=== PATIENT | male | born 1955 | race Caucasian/White ===

== ENCOUNTER 2020-09-01 15:35 | Outpatient (CLI) | payer MEDICARE, OTHER ==
[2020-09-01 18:02] LABS: BASOPHILS % (AUTO) 0.6 %; EOSINOPHILS # (AUTO) 0.1 10^3/uL (0.0-0.7); HGB - HEMOGLOBIN 14.3 g/dL (14.0-18.0); LYMPHOCYTES # (AUTO) 1.9 10^3/uL (1.5-3.5); MEAN CORPUSCULAR HEMOGLOBIN 28.7 pg (27.0-31.0); MEAN CORPUSCULAR HGB CONC 32.6 g/dL (32.0-36.0); MEAN CORPUSCULAR VOLUME 88.2 fL (80.0-94.0); MEAN PLATELET VOLUME 10.7 fL (7.4-11.4); MONOCYTES # (AUTO) 0.6 10^3/uL (0.0-1.0); MONOCYTES % (AUTO) 9.5 %; NEUTROPHILS # (AUTO) 3.7 10^3/uL (1.5-6.6); NEUTROPHILS % (AUTO) 57.6 %; PLT - PLATELET COUNT 236 10^3/uL (130-450); RED BLOOD COUNT 4.98 10^6/uL (4.70-6.10); RED CELL DISTRIBUTION WIDTH 12.7 % (12.0-15.0); WHITE BLOOD COUNT 6.4 x10^3/uL (4.8-10.8)
[2020-09-01 18:23] LABS: ALBUMIN 4.3 g/dL (3.2-5.5); ALBUMIN/GLOBULIN RATIO 1.1 (1.0-2.2); ALKALINE PHOSPHATASE 110 IU/L (42-121); ALT ALANINE AMINOTRANSFERASE < 10 IU/L (10-60); AST ASPARTATE AMINOTRANSFERASE 12 IU/L (10-42); BUN - BLOOD UREA NITROGEN 11 mg/dL (6-20); CALCIUM 9.5 mg/dL (8.5-10.3); CARBON DIOXIDE - CO2 26 mmol/L (21-32); CHLORIDE 95 mmol/L (101-111); CHOLESTEROL 283 mg/dL; CREATININE 0.7 mg/dL (0.6-1.2); GLUCOSE 270 mg/dL (70-100); HDL CHOLESTEROL 47 mg/dL; LDL CHOLESTEROL,CALCULATED 213 mg/dL; LDL/HDL RATIO 4.5 (<3.6); SODIUM 134 mmol/L (135-145); TOTAL PROTEIN 8.3 g/dL (6.7-8.2); VLDL CHOLESTEROL 23 mg/dL
[2020-09-01 20:11] LABS: HEMOGLOBIN A1c% 12.6 % (4.27-6.07)
[2020-09-02 12:36] LABS: CREATININE,URINE 26.1 mg/dL; MICROALBUM/CREATININE RATIO,UR 57.5 ug/mg (<30.0); MICROALBUMIN,URINE 1.5 mg/dL (0-300.0)
== END 2020-09-01 23:59 | disposition home or self-care (01) ==
LOC: LAB.WCP 15:35
PROVIDERS: ATTEND Nurse Practitioner
DX: N52.9 Male erectile dysfunction, unspecified (principal); E11.9 Type 2 diabetes mellitus without complications; Z82.49 Family history of ischemic heart disease and other diseases of the circulatory system; Z86.13 Personal history of malaria
CPT/HCPCS: 36415; 80050; 80061; 82043; 82570; 83036; 83721; 84153

== ENCOUNTER → 2020-09-02 | Outpatient (CLI) | payer MEDICARE, OTHER ==
[2020-11-02 18:10] LABS: CREATININE,URINE 26.1 mg/dL; MICROALBUM/CREATININE RATIO,UR 57.5 ug/mg (<30.0); MICROALBUMIN,URINE 1.5 mg/dL (0-300.0)
== END ==
LOC: LAB.R 07:00
PROVIDERS: ATTEND Nurse Practitioner
DX: N52.9 Male erectile dysfunction, unspecified (principal); E11.9 Type 2 diabetes mellitus without complications; Z82.49 Family history of ischemic heart disease and other diseases of the circulatory system; Z86.13 Personal history of malaria
CPT/HCPCS: 82043; 82570

== ENCOUNTER 2021-03-24 08:00 | Outpatient (CLI) | payer MEDICARE, OTHER ==
[2021-03-24 12:29] LABS: BUN - BLOOD UREA NITROGEN 14 mg/dL (6-20); CALCIUM 9.4 mg/dL (8.5-10.3); CARBON DIOXIDE - CO2 28 mmol/L (21-32); CHLORIDE 104 mmol/L (101-111); CHOL/HDL RATIO 2.6 (<5.0); CHOLESTEROL 127 mg/dL; CREATININE 0.7 mg/dL (0.6-1.2); GFR - MDRD 113 (>89); GLUCOSE 135 mg/dL (70-100); HDL CHOLESTEROL 48 mg/dL; POTASSIUM 4.5 mmol/L (3.5-5.0); SODIUM 141 mmol/L (135-145); TRIGLYCERIDES 26 mg/dL
[2021-03-24 12:38] LABS: ESTIMATED AVERAGE GLUCOSE 163 mg/dL (70-100); HEMOGLOBIN A1c% 7.3 % (4.27-6.07)
== END 2021-03-24 23:59 | disposition home or self-care (01) ==
LOC: LAB.WCP 08:00
PROVIDERS: ATTEND Family Medicine
DX: E11.65 Type 2 diabetes mellitus with hyperglycemia (principal); E78.5 Hyperlipidemia, unspecified
CPT/HCPCS: 36415; 80048; 80061; 82043; 82570; 83036; 83721

== ENCOUNTER 2021-03-28 08:00 | Outpatient (CLI) | payer MEDICARE, OTHER ==
[2021-03-28 12:48] LABS: CREATININE,URINE 68.8 mg/dL; MICROALBUM/CREATININE RATIO,UR 11.6 ug/mg (<30.0); MICROALBUMIN,URINE 0.8 mg/dL (0-300.0)
== END 2021-03-28 23:59 | disposition home or self-care (01) ==
LOC: LAB.WCP 08:00
PROVIDERS: ATTEND Family Medicine
DX: E11.65 Type 2 diabetes mellitus with hyperglycemia (principal); E78.5 Hyperlipidemia, unspecified
CPT/HCPCS: 82043; 82570

== ENCOUNTER 2021-07-08 15:48 | Outpatient (CLI) | payer MEDICARE, OTHER ==
[2021-07-08 21:15] LABS: CALCIUM 8.9 mg/dL (8.5-10.3); CREATININE 0.9 mg/dL (0.6-1.2); POTASSIUM 4.2 mmol/L (3.5-5.0)
[2021-07-08 22:04] LABS: ESTIMATED AVERAGE GLUCOSE 180 mg/dL (70-100); HEMOGLOBIN A1c% 7.9 % (4.27-6.07)
== END 2021-07-08 15:49 | disposition home or self-care (01) ==
LOC: LAB.N 15:48
PROVIDERS: ATTEND Family Medicine
DX: Z01.84 Encounter for antibody response examination (principal); E11.65 Type 2 diabetes mellitus with hyperglycemia
CPT/HCPCS: 36415; 80048; 83036; 86769

== ENCOUNTER 2021-08-05 06:16 | Day surgery (SDC) | payer MEDICARE, OTHER ==
[2021-08-05] MEDS ORDERED: LACTATED RINGERS 1,000 ML IV ONE ×2 (06:46→08:50)
--- NOTE | 2021-08-05 07:16 | HISTORY & PHYSICAL EXAMINATION ---
Chief Complaint - Chief Complaint Chief Complaint: positive cologuard History of Present Illness - History Obtained From Records Reviewed: yes History obtained from: pt Exam Limitations: none - History of Present Illness HPI Comment/Other: Positive cologuard. No gi symptoms or anemia. History - Past Medical History Cardiovascular: reports: High cholesterol Respiratory: reports: None Endocrine/Autoimmune: reports: Type 2 diabetes GI: reports: None : reports: None HEENT: reports: None Psych: reports: None Musculoskeletal: reports: None Derm: reports: None MRSA Hx?: No Meds/Allgy - Home Medications Home Medications: Ambulatory Orders Medication Instructions Recorded Confirmed Lisinopril 5 mg ORAL DAILY 05/10/14 08/05/21 Metformin HCl 500 mg ORAL BID 05/10/14 08/05/21 Atorvastatin [Lipitor] 1 tab PO DAILY 08/05/21 08/05/21 Insulin Glargine [Lantus Solostar] 32 units IM DAILY 08/05/21 08/05/21 - Allergies Allergies/Adverse Reactions: Allergies Allergy/AdvReac Type Severity Reaction Status Date / Time No Known Drug Allergies Allergy Verified 05/10/14 10:58 Review of Systems - Other Findings Other Findings: 10 pt ros as above otherwise unremarkable Exam - Vital Signs Reviewed Vital Signs: Yes Vital Signs: Vital Signs x48h Temp Pulse Resp BP Pulse Ox 08/05/21 06:35 36.2 C L 96 18 110/81 H 99 - Physical Exam General Appearance: positive: No acute distress, Alert Eyes Bilateral: positive: PERRL, EOMI Neck: positive: No JVD Respiratory: positive: No respiratory distress, Breath sounds nml Cardiovascular: positive: Regular rate & rhythm Abdomen: positive: Non-tender, No distention Neurologic/Psychiatric: positive: Oriented x3 Conclusion/Plan - Problem List (1) Colon cancer screening Conclusion/Plan: positive cologuard. plan colonoscopy. parq held and consent obtained
[2021-08-05] MEDS ORDERED: fentaNYL 250 MCG/5 ML VIAL ONE (07:36)
[2021-08-05] MEDS ORDERED: MIDAZOLAM 2 MG/2 ML VIAL ONE (07:36)
[2021-08-05 09:35] VITALS: BP 109/69
== END 2021-08-05 06:17 | disposition home or self-care (01) ==
LOC: SDS 06:16
PROVIDERS: ATTEND Surgery
PROC: 0DBL8ZZ Excision of Transverse Colon, Via Natural or Artificial Opening Endoscopic (ICD-10-PCS; 2021-08-05)
PROC: 0DBN8ZZ Excision of Sigmoid Colon, Via Natural or Artificial Opening Endoscopic (ICD-10-PCS; 2021-08-05)
PROC: 0DBP8ZZ Excision of Rectum, Via Natural or Artificial Opening Endoscopic (ICD-10-PCS; 2021-08-05)
PROC: 0DBM8ZZ Excision of Descending Colon, Via Natural or Artificial Opening Endoscopic (ICD-10-PCS; 2021-08-05)
PROC: 0DBP8ZZ Excision of Rectum, Via Natural or Artificial Opening Endoscopic (ICD-10-PCS; 2021-08-05)
PROC: 0DBK8ZZ Excision of Ascending Colon, Via Natural or Artificial Opening Endoscopic (ICD-10-PCS; principal; 2021-08-05 07:30)
DX: D12.4 Benign neoplasm of descending colon (principal); D12.3 Benign neoplasm of transverse colon; D12.8 Benign neoplasm of rectum; D12.7 Benign neoplasm of rectosigmoid junction; K63.9 Disease of intestine, unspecified; K57.30 Diverticulosis of large intestine without perforation or abscess without bleeding; E11.9 Type 2 diabetes mellitus without complications; E78.00 Pure hypercholesterolemia, unspecified; Z79.4 Long term (current) use of insulin; Z79.899 Other long term (current) drug therapy
CPT/HCPCS: 45380; 45385; J3010; J7120

== ENCOUNTER 2021-10-19 08:00 | Outpatient (CLI) | payer MEDICARE, OTHER ==
[2021-10-19 13:10] LABS: BASOPHILS % (AUTO) 0.7 %; EOSINOPHILS # (AUTO) 0.2 10^3/uL (0.0-0.7); EOSINOPHILS % (AUTO) 2.8 %; HCT - HEMATOCRIT 41.2 % (42.0-52.0); HGB - HEMOGLOBIN 13.5 g/dL (14.0-18.0); LYMPHOCYTES # (AUTO) 1.6 10^3/uL (1.5-3.5); LYMPHOCYTES % (AUTO) 27.5 %; MEAN CORPUSCULAR HEMOGLOBIN 29.2 pg (27.0-31.0); MEAN CORPUSCULAR HGB CONC 32.8 g/dL (32.0-36.0); MEAN CORPUSCULAR VOLUME 89.2 fL (80.0-94.0); MEAN PLATELET VOLUME 10.7 fL (7.4-11.4); MONOCYTES # (AUTO) 0.7 10^3/uL (0.0-1.0); MONOCYTES % (AUTO) 12.9 %; NEUTROPHILS # (AUTO) 3.2 10^3/uL (1.5-6.6); NEUTROPHILS % (AUTO) 55.9 %; PLT - PLATELET COUNT 221 10^3/uL (130-450); RED BLOOD COUNT 4.62 10^6/uL (4.70-6.10); RED CELL DISTRIBUTION WIDTH 13.4 % (12.0-15.0); WHITE BLOOD COUNT 5.7 x10^3/uL (4.8-10.8)
[2021-10-19 13:27] LABS: ESTIMATED AVERAGE GLUCOSE 157 mg/dL (70-100); HEMOGLOBIN A1c% 7.1 % (4.27-6.07)
[2021-10-19 13:54] LABS: ALBUMIN 4.2 g/dL (3.2-5.5); ALBUMIN/GLOBULIN RATIO 1.2 (1.0-2.2); ALKALINE PHOSPHATASE 70 IU/L (42-121); ALT ALANINE AMINOTRANSFERASE 11 IU/L (10-60); AST ASPARTATE AMINOTRANSFERASE 18 IU/L (10-42); BILIRUBIN,TOTAL 0.6 mg/dL (0.2-1.0); BUN - BLOOD UREA NITROGEN 16 mg/dL (6-20); CALCIUM 9.2 mg/dL (8.5-10.3); CARBON DIOXIDE - CO2 26 mmol/L (21-32); CHLORIDE 102 mmol/L (101-111); CHOL/HDL RATIO 2.8 (<5.0); CHOLESTEROL 135 mg/dL; CREATININE 0.6 mg/dL (0.6-1.2); GFR - MDRD 135 (>89); GLUCOSE 160 mg/dL (70-100); HDL CHOLESTEROL 48 mg/dL; POTASSIUM 4.4 mmol/L (3.5-5.0); SODIUM 136 mmol/L (135-145); TOTAL PROTEIN 7.6 g/dL (6.7-8.2); TRIGLYCERIDES 29 mg/dL
[2021-10-19 14:35] LABS: THYROID STIMULATING HORMONE 0.99 uIU/mL (0.34-5.60)
== END 2021-10-19 23:59 | disposition home or self-care (01) ==
LOC: LAB.WCP 08:00
PROVIDERS: ATTEND Family Medicine
DX: E11.65 Type 2 diabetes mellitus with hyperglycemia (principal); E78.5 Hyperlipidemia, unspecified; G47.33 Obstructive sleep apnea (adult) (pediatric); Z12.5 Encounter for screening for malignant neoplasm of prostate
CPT/HCPCS: 36415; 80053; 80061; 83036; 84443; 85025; G0103; 82043; 82570; 83721; 84153

== ENCOUNTER 2022-01-18 09:47 | Emergency (ER) | payer MEDICARE, OTHER ==
--- NOTE | 2022-01-18 10:36 | ED Physician Documentation ---
PD HPI SKIN - Stated complaint Stated Complaint: LT LEG PX, POTENTIAL SPIDER BITE - Chief complaint Chief Complaint: Ext Problem - History obtained from History obtained from: Patient - History of Present Illness Timing - onset: How many days ago (2-3) Timing - duration: Days (2-3) Timing - details: Gradual onset (noted small sore on mccollum with some redness. This has spread to around the knee anteriorly. Tender for kneeling and knee extension.), Still present Location: LLE Quality / character: Painful, Discolored (red with warmth), Vesicular (small cluster of red bumps at site of initial lesion. he thinks it might have been spider bite. 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.) Similar symptoms before: Has not had sx before (denies history of bursitis nor gout.) Recently seen: Not recently seen Review of Systems Constitutional: denies: Fever, Chills, Myalgias GI: denies: Nausea, Vomiting Neurologic: denies: Focal weakness, Numbness PD PAST MEDICAL HISTORY - Past Medical History Cardiovascular: High cholesterol Respiratory: None Endocrine/Autoimmune: Type 2 diabetes GI: None : None HEENT: None Psych: None Musculoskeletal: None Derm: None - Past Surgical History Past Surgical History: No - Present Medications Home Medications: Ambulatory Orders Medication Instructions Recorded Confirmed Lisinopril 5 mg ORAL DAILY 05/10/14 08/05/21 Metformin HCl 500 mg ORAL BID 05/10/14 08/05/21 Atorvastatin [Lipitor] 1 tab PO DAILY 08/05/21 08/05/21 Insulin Glargine [Lantus Solostar] 32 units IM DAILY 08/05/21 08/05/21 HYDROcod/ACETAM 5/325 [[place] 5/325] 1 ea PO Q6H PRN #12 tablet 01/18/22 Ibuprofen [Motrin] 600 mg PO TID PRN #25 tab 01/18/22 cephALEXin [Keflex] 500 mg PO QID 5 Days #20 cap 01/18/22 - Allergies Allergies/Adverse Reactions: Allergies Allergy/AdvReac Type Severity Reaction Status Date / Time No Known Drug Allergies Allergy Verified 05/10/14 10:58 - Social History Does the pt smoke?: Yes Smoking Status: Current every day smoker Does the pt drink ETOH?: Yes Does the pt have substance abuse?: No - Immunizations Immunizations are current?: No Immunizations: TDAP >10years/unknown PD ED PE NORMAL - Vitals Vital signs reviewed: Yes - General General: Alert and oriented X 3, Well developed/nourished, Other (seems uncomfortable with left knee movement, extension. ) - Derm Derm: Normal color, Warm and dry - Extremities Extremities: Other (left anterior lower knee and proximal anterior tibial area with redness, warmth, tender. Is tender in area of lower bursa but no skin lesions there and no notable effusion. proximal tibial area with superficial 2 cm cluster of small vesicles without drainage. consider impetigo like infection.) - Neuro Neuro: No motor deficit, No sensory deficit Results - Vitals Vitals: Vital Signs - 24 hr 01/18/22 01/18/22 09:58 12:00 Temperature 36.8 C 36.6 C Heart Rate 96 97 Respiratory 16 16 Rate Blood Pressure 118/78 112/54 L O2 Saturation 97 100 Oxygen O2 Source Room air PD MEDICAL DECISION MAKING - ED course Complexity details: considered differential (redness in prepatellar bursa area without effusion. I do not feel there is enough for tapping diagnostically. there is skin sore proximal tibial area with red, so could be cellulitic. also consider gout/bursitis. ), d/w patient Departure - Departure Disposition: 01 Home, Self Care Clinical Impression: Cellulitis of left lower leg Condition: Stable Record reviewed to determine appropriate education?: Yes Instructions: ED Infec Skin Cellulitis Follow-Up: Artis Hernandez MD [Primary Care Provider] - Prescriptions: cephALEXin [Keflex] 500 mg PO QID 5 Days #20 cap Ibuprofen [Motrin] 600 mg PO TID PRN #25 tab PRN Reason: Pain HYDROcod/ACETAM 5/325 [[place] 5/325] 1 ea PO Q6H PRN #12 tablet PRN Reason: Pain Comments: Considerations for this would be an infection from either a skin wound or a bug bite that is now spreading (cellulitis). It could be just an inflammatory reaction around the front of the knee called prepatellar bursitis or inflammatory called gout. We can treat at these conditions with anti-inflammatories and pain medicine. I would also add cephalexin antibiotic as directed. Ibuprofen 3 times a day with food. To that add Tylenol every 4-6 hours if needed for pain or hydrocodone if needed for worse pain. I would anticipate improvement over the next 2 to 3 days and resolved by 3 to 5 days. Return if worsening or not improved in that timeframe. I transmitted your prescriptions to [facility] pharmacy. I am prescribing a short course of narcotic pain medication for you. These are potentially dangerous and addictive medications that should be used carefully. These medications may constipate you. Take an [id number]-[id number] stool softener such as docusate twice daily with plenty of water while taking these medications. If you go 24 hours without a bowel movement, take [id number] MiraLAX, per package instructions. Do not drink or drive while taking these medications. If you received narcotic or sedating medications while in the emergency departme nt do not drive for 24 hours. Store this medication in a safe, secure place and out of reach of children. It is a violation of federal law to give or sell this medication to another person or to use in a manner other than prescribed. The ED will not refill narcotic prescriptions, including prescriptions lost or stolen. You can dispose of unwanted medications at the [facility] or at several pharmacies such as [facility] Discharge Date/Time: 01/18/22 12:00
[2022-01-18] MEDS ORDERED: IBUPROFEN 600 MG TABLET PO STA (11:06)
[2022-01-18] MEDS ORDERED: cephALEXin 250 MG CAPSULE PO STA (11:06)
[2022-01-18] MEDS ORDERED: ACETAMINOPHEN 325 MG TABLET PO STA (11:06)
[2022-01-18 12:24] VITALS: BP 112/54
== END 2022-01-18 12:00 | disposition home or self-care (01) ==
LOC: ED 09:47
DX: L03.116 Cellulitis of left lower limb (principal); E11.9 Type 2 diabetes mellitus without complications; Z79.4 Long term (current) use of insulin
CPT/HCPCS: 99282; 99283; A9270

== ENCOUNTER 2022-01-22 13:19 | Inpatient (IN) | payer MEDICARE, OTHER ==
--- NOTE | 2022-01-22 17:25 | ED Physician Documentation ---
History of Present Illness - Stated complaint Stated Complaint: LT KNEE PX - Chief complaint Chief Complaint: Wound - History obtained from History obtained from: Patient - History of Present Illness Pain level max: 8 Pain level now: 8 - Additonal information Additional information: Patient is a 66-year-old male who presents to the emergency department with a left lower leg swelling and pain. He states that it started on the midshaft left tibia and spread to the knee. Has redness, swelling. No drainage. Worse with movement, better with rest. Was seen here recently, started on antibiotics as well as pain medication. He states neither are helping. Now increasing pain with walking as well. 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 No fevers or chills. No breaks in the skin that he is aware of. No lacerations. Has never had similar symptoms previously. Review of Systems Ten Systems: 10 systems reviewed and negative Constitutional: denies: Fever, Chills GI: denies: Vomiting, Diarrhea Skin: denies: Rash Musculoskeletal: denies: Neck pain, Back pain Neurologic: denies: Headache PD PAST MEDICAL HISTORY - Past Medical History Cardiovascular: High cholesterol Respiratory: None Endocrine/Autoimmune: Type 2 diabetes GI: None : None HEENT: None Psych: None Musculoskeletal: None Derm: None - Past Surgical History Past Surgical History: No - Present Medications Home Medications: Ambulatory Orders Medication Instructions Recorded Confirmed Lisinopril 5 mg ORAL DAILY 05/10/14 08/05/21 Metformin HCl 500 mg ORAL BID 05/10/14 08/05/21 Atorvastatin [Lipitor] 1 tab PO DAILY 08/05/21 08/05/21 Insulin Glargine [Lantus Solostar] 32 units IM DAILY 08/05/21 08/05/21 HYDROcod/ACETAM 5/325 [[place] 5/325] 1 ea PO Q6H PRN #12 tablet 01/18/22 Ibuprofen [Motrin] 600 mg PO TID PRN #25 tab 01/18/22 cephALEXin [Keflex] 500 mg PO QID 5 Days #20 cap 01/18/22 - Allergies Allergies/Adverse Reactions: Allergies Allergy/AdvReac Type Severity Reaction Status Date / Time No Known Drug Allergies Allergy Verified 01/22/22 13:25 - Social History Does the pt smoke?: Yes Smoking Status: Current every day smoker Does the pt drink ETOH?: Yes Does the pt have substance abuse?: No - Immunizations Immunizations are current?: No Immunizations: TDAP >10years/unknown PD ED PE NORMAL - Vitals Vital signs reviewed: Yes - General General: Alert and oriented X 3, No acute distress - HEENT HEENT: Moist mucous membranes - Neck Neck: Supple, no meningeal sign - Cardiac Cardiac: RRR, Strong equal pulses - Respiratory Respiratory: No respiratory distress, Clear bilaterally - Abdomen Abdomen: Soft, Non tender, Non distended - Derm Derm: Warm and dry - Extremities Extremities: Other (There is erythema from the mid tibia to above the left knee. Diffuse swelling. No warmth. Some mild posterior calf tenderness. No visible breaks in the skin. Does not appear to have a joint effusion. Neurovascularly intact.) - Neuro Neuro: Alert and oriented X 3 - Psych Psych: Normal mood, Normal affect Results - Vitals Vitals: Vital Signs - 24 hr 01/22/22 01/22/22 01/22/22 13:25 16:54 20:09 Temperature 36.5 C 36.9 C Heart Rate 96 79 64 Respiratory 16 20 18 Rate Blood Pressure 118/79 115/68 122/64 O2 Saturation 100 99 99 Oxygen O2 Source Room air - Labs Labs: Laboratory Tests 01/22/22 01/22/22 01/22/22 17:32 17:32 17:32 WBC 14.1 H RBC 4.38 L Hgb 13.0 L Hct 38.6 L MCV 88.1 MCH 29.7 MCHC 33.7 RDW 12.7 Plt Count 279 MPV 10.0 Neut # (Auto) 10.7 H Lymph # (Auto) 1.6 [place] # (Auto) 1.5 H Eos # (Auto) 0.1 Baso # (Auto) 0.1 Absolute Nucleated RBC 0.00 Nucleated RBC % 0.0 ESR 52 H Sodium 134 L Potassium 4.2 Chloride 98 L Carbon Dioxide 25 Anion Gap 11.0 BUN 15 Creatinine 0.9 Estimated GFR (MDRD) 84 L Glucose 124 H Lactic Acid Calcium 8.7 Total Bilirubin 0.7 AST 53 H ALT 66 H Alkaline Phosphatase 99 C-Reactive Protein 5.3 H Total Protein 7.8 Albumin 3.4 Globulin 4.4 H Albumin/Globulin Ratio 0.8 L Nasal Adenovirus (PCR) Nasal B. parapertussis DNA (PCR) Nasal Coronavir 229E PCR Nasal Coronavir HKU1 PCR Nasal Coronavir NL63 PCR Nasal Coronavir OC43 PCR Nasal Enterovir/Rhinovir PCR Nasal Influenza B PCR Nasal Influenza A PCR Nasal Parainfluen 1 PCR Nasal Parainfluen 2 PCR Nasal Parainfluen 3 PCR Nasal Parainfluen 4 PCR Nasal RSV (PCR) Nasal B.pertussis DNA PCR Nasal C.pneumoniae (PCR) [place] Human Metapneumo PCR Nasal M.pneumoniae (PCR) Nasal SARS-CoV-2 (PCR) 01/22/22 01/22/22 18:58 19:17 WBC RBC Hgb Hct MCV MCH MCHC RDW Plt Count MPV Neut # (Auto) Lymph # (Auto) [place] # (Auto) Eos # (Auto) Baso # (Auto) Absolute Nucleated RBC Nucleated RBC % ESR Sodium Potassium Chloride Carbon Dioxide Anion Gap BUN Creatinine Estimated GFR (MDRD) Glucose Lactic Acid 1.1 Calcium Total Bilirubin AST ALT Alkaline Phosphatase C-Reactive Protein Total Protein Albumin Globulin Albumin/Globulin Ratio Nasal Adenovirus (PCR) NOT DETECTED Nasal B. parapertussis DNA (PCR) NOT DETECTED Nasal Coronavir 229E PCR NOT DETECTED Nasal Coronavir HKU1 PCR NOT DETECTED Nasal Coronavir NL63 PCR NOT DETECTED Nasal Coronavir OC43 PCR NOT DETECTED Nasal Enterovir/Rhinovir PCR NOT DETECTED Nasal Influenza B PCR NOT DETECTED Nasal Influenza A PCR NOT DETECTED Nasal Parainfluen 1 PCR NOT DETECTED Nasal Parainfluen 2 PCR NOT DETECTED Nasal Parainfluen 3 PCR NOT DETECTED Nasal Parainfluen 4 PCR NOT DETECTED Nasal RSV (PCR) NOT DETECTED Nasal B.pertussis DNA PCR NOT DETECTED Nasal C.pneumoniae (PCR) NOT DETECTED [place] Human Metapneumo PCR NOT DETECTED Nasal M.pneumoniae (PCR) NOT DETECTED Nasal SARS-CoV-2 (PCR) NOT DETECTED - Rads (name of study) Left knee x-ray Radiology: Final report received, EMP read contemporaneously, See rad report Left tib-fib x-ray Radiology: Final report received, EMP read contemporaneously, See rad report Left lower extremity duplex ultrasound Radiology: Final report received, EMP read contemporaneously, See rad report PD MEDICAL DECISION MAKING - ED course Complexity details: reviewed results, re-evaluated patient, considered differential (No evidence of septic joint, retained foreign body, DVT, etc), d/w patient, d/w crop consultant ED course: 66-year-old male with what appears to be a worsening left lower extremity cellulitis. No evidence of foreign body on x-ray. No significant joint effusion. No DVT. Does have an elevated white blood cell count as well as inflammatory markers. He had been on oral antibiotics and has failed these, we will place in observation for IV antibiotics and ensure he continues to improve as expected. Discussed the case with Dr. Chacon, hospitalist who accepts This document was made in part using voice recognition software. While efforts are made to proofread this document, sound alike and grammatical errors may occur. Departure - Departure Disposition: ED Place in Observation Clinical Impression: Cellulitis of left lower leg Condition: Stable Discharge Date/Time: 01/22/22 20:55
[2022-01-22 17:38] LABS: BASOPHILS # (AUTO) 0.1 10^3/uL (0.0-0.1); BASOPHILS % (AUTO) 0.4 %; EOSINOPHILS # (AUTO) 0.1 10^3/uL (0.0-0.7); EOSINOPHILS % (AUTO) 0.7 %; HCT - HEMATOCRIT 38.6 % (42.0-52.0); LYMPHOCYTES # (AUTO) 1.6 10^3/uL (1.5-3.5); LYMPHOCYTES % (AUTO) 11.6 %; MEAN CORPUSCULAR HEMOGLOBIN 29.7 pg (27.0-31.0); MEAN CORPUSCULAR HGB CONC 33.7 g/dL (32.0-36.0); MEAN CORPUSCULAR VOLUME 88.1 fL (80.0-94.0); MONOCYTES # (AUTO) 1.5 10^3/uL (0.0-1.0); MONOCYTES % (AUTO) 10.6 %; NEUTROPHILS # (AUTO) 10.7 10^3/uL (1.5-6.6); NEUTROPHILS % (AUTO) 76.2 %; PLT - PLATELET COUNT 279 10^3/uL (130-450); RED BLOOD COUNT 4.38 10^6/uL (4.70-6.10); RED CELL DISTRIBUTION WIDTH 12.7 % (12.0-15.0); WHITE BLOOD COUNT 14.1 x10^3/uL (4.8-10.8)
[2022-01-22 17:54] LABS: ALBUMIN 3.4 g/dL (3.2-5.5); ALBUMIN/GLOBULIN RATIO 0.8 (1.0-2.2); BILIRUBIN,TOTAL 0.7 mg/dL (0.2-1.0); CALCIUM 8.7 mg/dL (8.5-10.3); CREATININE 0.9 mg/dL (0.6-1.2); CRP - C-REACTIVE PROTEIN 5.3 mg/dL (0-1.0); POTASSIUM 4.2 mmol/L (3.5-5.0); TOTAL PROTEIN 7.8 g/dL (6.7-8.2)
--- NOTE | 2022-01-22 18:12 | XRAY Report ---
PROCEDURE: Knee 4 View LT INDICATIONS: LLE swelling, pain TECHNIQUE: 4 views of the left knee(s) were acquired. COMPARISON: Left tibia fibula radiographs today. FINDINGS: Bones: No definite fractures or dislocations. There is tiny calcification at the lateral tibial plat eau. However, on the frontal projection this may be anterior to the bone. No donor site is seen. No suspicious bony lesions. Soft tissues: Probable trace joint effusion. No suspicious soft tissue calcifications. IMPRESSION: No fracture or dislocation. Reviewed by: Ty Hardwick MD on 01/22/2022 5:10 PM [place] Approved by: Ty Hardwick MD on 01/22/2022 5:10 PM KATALINA Station ID: [id number]
--- NOTE | 2022-01-22 18:13 | XRAY Report ---
PROCEDURE: Tib/Fib LT INDICATIONS: LLE swelling, pain TECHNIQUE: 2 views of the tibia and fibula were acquired. COMPARISON: Left knee radiographs. FINDINGS: Bones: No fractures or dislocations. No suspicious bony lesions. Soft tissues: No suspicious soft tissue calcifications or masses. Mild vascular calcifications. IMPRESSION: No fracture. Reviewed by: Ty Hardwick MD on 01/22/2022 5:11 PM KATALINA Approved by: Ty Hardwick MD on 01/22/2022 5:11 PM KATALINA Station ID: [id number]
[2022-01-22] MEDS ORDERED: VANCOMYCIN INJ 1 GM in SODIUM CHLORIDE 0.9% 500 ML IV STA (18:47)
[2022-01-22] MEDS ORDERED: AMPICILLIN/SULBACTAM 3 GM in SODIUM CHLORIDE 0.9% MINIBAG 100 ML IV STA (18:47)
[2022-01-22] MEDS ORDERED: VANCOMYCIN 1 GM VIAL ONE (19:29)
--- NOTE | 2022-01-22 19:52 | Ultrasound Report ---
PROCEDURE: Duplex Ext Veins Left INDICATIONS: LLE swelling, pain TECHNIQUE: Real-time imaging, as well as color and pulse Doppler interrogation, were performed of the lower extr emity deep veins from the inguinal ligament to the popliteal fossa. COMPARISON: None. FINDINGS: The deep veins are normally compressible, and free of intraluminal thrombus. Color and pu lse Doppler demonstrate normal phasic intraluminal flow. There is normal augmentation response to di stal compression maneuver. IMPRESSION: Negative for deep venous thrombosis of the left lower extremity. Reviewed by: Marcos Thomas MD on 01/22/2022 7:51 PM PDT Approved by: Marcos Thomas MD on 01/22/2022 7:51 PM PDT Station ID: [id number]
[2022-01-22 20:15] LABS: CORONAVIRUS 229E-RESP PCR NOT DETECTED; CORONAVIRUS HKU1-RESP PCR NOT DETECTED; CORONAVIRUS NL63-RESP PCR NOT DETECTED; CORONAVIRUS OC43-RESP PCR NOT DETECTED; HUMAN METAPNEUMOVIRUS NOT DETECTED; INFLUENZA A- RESP PCR PANEL NOT DETECTED; INFLUENZA B - RESP PCR PANEL NOT DETECTED; PARAINFLUENZA VIRUS 1 NOT DETECTED; PARAINFLUENZA VIRUS 2 NOT DETECTED; RHINOVIRUS/ENTEROVIRUS NOT DETECTED; SARS-CoV-2 -RESP PCR PANEL NOT DETECTED
[2022-01-22 20:16] LABS: B. PARAPERTUSSIS- RESP PCR PAN NOT DETECTED; B. PERTUSSIS- RESP PCR PANEL NOT DETECTED; C. PNEUMONIAE- RESP PCR PANEL NOT DETECTED; M. PNEUMONIAE- RESP PCR PANEL NOT DETECTED; PARAINFLUENZA VIRUS 3 NOT DETECTED; PARAINFLUENZA VIRUS 4 NOT DETECTED; RSV- RESP PCR PANEL NOT DETECTED
[2022-01-22] MEDS ORDERED: SODIUM CHLORIDE FLUSH 0.9% 10 ML SYRINGE IVP PRN (20:24)
--- NOTE | 2022-01-22 20:35 | HISTORY & PHYSICAL EXAMINATION ---
Chief Complaint - Chief Complaint Chief Complaint: Leg pain, swelling, spreading since 2 days ago in ER History of Present Illness - Admitted From Admitted From:: ED - History Obtained From History obtained from: ED provider and the patient - History of Present Illness HPI Comment/Other: This is a 66-year-old white male with a history of hypertension and diabetes. He developed pain, and a raised red area of his left mccollum, which he thought was from a bug bite, and he came to the ER with this complaint 2 days ago. 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 He was sent home on Keflex. The area has gotten more painful, red and more swollen and the involved area spread and he therefore presented to the ED again today. He was found to have an elevated white blood count of 14, elevated ESR of 52 and has presumed cellulitis. Blood cultures were drawn and then he received IV vancomycin and IV Unasyn in the ED. He underwent ultrasound that was negative for DVT and had an x-ray that showed no foreign body or fractures. He then underwent CT with c ontrast of the LLE, that showed no evidence of necrotizing fasciitis. He is being hospitalized for cellulitis that has failed outpatient therapy. History - Past Medical History Cardiovascular: reports: High cholesterol Respiratory: reports: None Endocrine/Autoimmune: reports: Type 2 diabetes GI: reports: None : reports: None HEENT: reports: None Psych: reports: None Musculoskeletal: reports: None Derm: reports: None MRSA Hx?: No - Family & Social History Living arrangement: At home Social History Notes: He does not smoke cigarettes, uses no marijuana. He smokes a rare cigar, less than 1/week. He drinks very rare alcohol, an occasio nal yareli about 1/week. 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 He is a . - Substance History Use: Uses substance without health or social issues: NONE Meds/Allgy - Home Medications Home Medications: Ambulatory Orders Medication Instructions Recorded Confirmed Lisinopril 5 mg ORAL DAILY 05/10/14 08/05/21 Metformin HCl 500 mg ORAL BID 05/10/14 08/05/21 Atorvastatin [Lipitor] 1 tab PO DAILY 08/05/21 08/05/21 Insulin Glargine [Lantus Solostar] 32 units IM DAILY 08/05/21 08/05/21 HYDROcod/ACETAM 5/325 [[place] 5/325] 1 ea PO Q6H PRN #12 tablet 01/18/22 Ibuprofen [Motrin] 600 mg PO TID PRN #25 tab 01/18/22 cephALEXin [Keflex] 500 mg PO QID 5 Days #20 cap 01/18/22 - Allergies Allergies/Adverse Reactions: Allergies Allergy/AdvReac Type Severity Reaction Status Date / Time No Known Drug Allergies Allergy Verified 01/22/22 13:25 Review of Systems - All Other Systems All Other Systems: reports: Reviewed and negative Exam - Vital Signs Reviewed Vital Signs: Yes Vital Signs: Vital Signs x48h Temp Pulse Resp BP Pulse Ox 01/22/22 20:09 64 18 122/64 99 01/22/22 16:54 36.9 C 79 20 115/68 99 01/22/22 13:25 36.5 C 96 16 118/79 100 - Physical Exam General Appearance: positive: No acute distress, Alert Eyes Bilateral: positive: Normal inspection, EOMI ENT: positive: ENT inspection nml, No signs of dehydration Neck: positive: Nml inspection, No JVD Respiratory: positive: No respiratory distress, Breath sounds nml Cardiovascular: positive: Regular rate & rhythm, No murmur Abdomen: positive: Non-tender, Nml bowel sounds, No distention Skin: positive: Warm, Dry Extremities: positive: No pedal edema, Other (Left mccollum and left knee are mildly swollen, red, tender to touch and warm. There are multiple bright red punctate lesions of the anterior shins (he states these are old, from ladder injuries).) Neurologic/Psychiatric: positive: Oriented x3 (Non-focal) Conclusion/Plan - Problem List (1) Cellulitis of left lower leg Conclusion/Plan: We obtained CT of leg which R/O nec fasc. The source of his cellulitis is likely through skin trauma from his type of job. Await blood cx results. Continue iv empiric antibx as started in ED: Vanco and Unasyn. Follow WBC and ESR daily Give Tylenol and narcotics for pain control. Will place him in Observation status, and assess if he has improvement in white count, and extent of cellulitis involvement and could be discharged with oral antibiotics soon vs. be admitted to Inpatient status, for a longer course of IV antibiotics and IV pain medications. (2) Diabetes mellitus Conclusion/Plan: Will order a carb control diet, ss Insulin coverage for fingerstick checks and A1c with a.m.labs. Will hold Metformin, given need for iv contrast use, to prevent VLADIMIR (3) Elevated LFTs Conclusion/Plan: The etiology is not immediately clear. Doubtful from his extremely rare alcohol use. Possibly medication-induced. Follow CMP daily. - Lab Results Fish Bones: 01/22/22 17:32 01/22/22 17:32 - Diagnostic Imaging Results Diagnostic Imaging Results: positive: Final report reviewed - Other Other Results/Comments: Attestation: The patient is expected to be discharged or transferred to another facility within 96 hours: Yes.
[2022-01-22] MEDS ORDERED: IOVERSOL 320 100 ML VIAL IVP ONE ×2 (21:00→21:27)
[2022-01-22] MEDS ORDERED: INSULIN ASPART 300 UNIT/3 ML PEN SUBQ SCH (21:00)
--- NOTE | 2022-01-22 21:36 | CT Report ---
PROCEDURE: LOWER EXTREMITY W - LT INDICATIONS: Eval for necrotizing fasciitis TECHNIQUE: After administration of contrast 3 mm axial sections acquired of the , with coronal and sagittal r eformats. For radiation dose reduction, the following was used: automated exposure control, adjustm ent of mA and/or kV according to patient size. CONTRAST: IV CONTRAST: Optiray 320 ml: 100 PO CONTRAST: *NO PO CONTRAST COMPARISON: None. FINDINGS: Image quality: Excellent. Bones: No fracture or dislocation. No osseous erosions. No periosteal reaction. Soft tissues: Extensive cutaneous and subcutaneous soft tissue edema noted in the lower thigh and th e lower leg. No abscess identified. No soft tissue air. Encephalomalacic of a small nonspecific knee joint effusion. IMPRESSION: 1. Extensive cellulitis with no abscess. 2. No soft tissue gas. 3. Small nonspecific knee joint effusion. Reviewed by: Amira Atkinson MD, PhD on 01/22/2022 9:35 PM PDT Approved by: Amira Atkinson MD, PhD on 01/22/2022 9:35 PM PDT Station ID: [id number]
[2022-01-22] MEDS: HYDROcod/ACETAM 10 MG/325 MG TABLET PO PRN (21:45)
[2022-01-23] MEDS: SODIUM CHLORIDE FLUSH 0.9% 10 ML SYRINGE IVP SCH ×4 (00:06→23:49)
[2022-01-23] MEDS: INSULIN REGULAR HUMAN 300 UNIT/3 ML VIAL SUBQ SCH ×2 (00:07→05:56)
[2022-01-23] MEDS: AMPICILLIN/SULBACTAM 3 GM in SODIUM CHLORIDE 0.9% MINIBAG 100 ML IV SCH ×5 (00:07→23:48)
[2022-01-23 05:23] LABS: BASOPHILS % (AUTO) 0.3 %; EOSINOPHILS % (AUTO) 0.6 %; HCT - HEMATOCRIT 34.2 % (42.0-52.0); HGB - HEMOGLOBIN 11.7 g/dL (14.0-18.0); LYMPHOCYTES % (AUTO) 9.8 %; MEAN CORPUSCULAR HEMOGLOBIN 29.7 pg (27.0-31.0); MEAN CORPUSCULAR HGB CONC 34.2 g/dL (32.0-36.0); MEAN CORPUSCULAR VOLUME 86.8 fL (80.0-94.0); MEAN PLATELET VOLUME 10.1 fL (7.4-11.4); MONOCYTES % (AUTO) 11.8 %; NEUTROPHILS % (AUTO) 76.9 %; PLT - PLATELET COUNT 273 10^3/uL (130-450); RED BLOOD COUNT 3.94 10^6/uL (4.70-6.10); RED CELL DISTRIBUTION WIDTH 12.8 % (12.0-15.0); WHITE BLOOD COUNT 14.3 x10^3/uL (4.8-10.8)
[2022-01-23 05:27] LABS: ABNORMAL LYMPHS % (MANUAL) 0 %; ALBUMIN 3.1 g/dL (3.2-5.5); ALBUMIN/GLOBULIN RATIO 0.9 (1.0-2.2); BAND NEUTROPHILS % (MANUAL) 0 %; BILIRUBIN,TOTAL 0.9 mg/dL (0.2-1.0); CALCIUM 8.4 mg/dL (8.5-10.3); CREATININE 0.7 mg/dL (0.6-1.2); POTASSIUM 3.5 mmol/L (3.5-5.0); TOTAL PROTEIN 6.7 g/dL (6.7-8.2)
[2022-01-23 05:45] LABS: DIFFERENTIAL COMMENT MANUAL DIFFERENTIAL; LYMPHOCYTES # (MANUAL) 1.9 10^3/uL (1.5-3.5); LYMPHOCYTES % (MANUAL) 13 %; MONOCYTES # (MANUAL) 1.3 10^3/uL (0.0-1.0); NEUTROPHILS # (MANUAL) 11.2 10^3/uL (1.5-6.6); PLATELET ESTIMATE, MANUAL NORMAL (130-450,000) (NORMAL); PLATELET MORPHOLOGY NORMAL APPEARANCE (NORMAL); RBC MORPHOLOGY (MULTIPLE) NORMAL APPEARANCE (NORMAL); WBC MORPHOLOGY (MULTIPLE) NORMAL APPEARANCE (NORMAL)
[2022-01-23] MEDS ORDERED: VANCOMYCIN INJ 1.5 GM in SODIUM CHLORIDE 0.9% 500 ML IV SCH (06:00)
--- NOTE | 2022-01-23 07:36 | PROVIDER PROGRESS NOTE ---
Assessment/Plan - Problem List (1) Cellulitis of left lower leg Assessment/Plan: Patient is currently on vancomycin and Unasyn. We will continue. Blood cultures pending. White count is 14.3. Tylenol as needed for fever. CT of the left lower extremity was negative for abscess. No soft tissue gas was seen. Small nonspecific knee joint effusion noted. Duplex of the left lower extremity was negative for DVTs. (2) Diabetes mellitus Qualifiers: Diabetes mellitus type: type 2 Assessment/Plan: Metformin held. HgA1C was 7.5 Lantus 34 units subcu daily. Accu-Cheks before every meal and at bedtime. Sliding scale insulin ordered. Carb controlled diet ordered. (3) Elevated LFTs Assessment/Plan: Resolved. - Current Meds Current Meds: Current Medications Generic Name Dose Route Start Last Admin Trade Name Freq PRN Reason Stop Dose Admin Hydrocodone Bitart/Acetaminophen 1 tab 01/22/22 20:24 01/22/22 21:45 Hydrocod/Acetam 10 Mg/325 Mg Tablet PO 1 tab Q4HR PRN Administration Pain 8 to 10 Ampicillin Sodium/Sulbactam 100 mls @ 200 mls/hr 01/23/22 00:00 01/23/22 06:19 Sodium 3 gm/ Sodium Chloride IV Infused Q6HR CORI Infusion Vancomycin HCl 1.5 gm/ Sodium 500 mls @ 250 mls/hr 01/23/22 06:00 01/23/22 06:19 Chloride IV 250 mls/hr Q12H CORI Administration Insulin Human Regular 1 - 5 unit 01/23/22 00:00 01/23/22 05:56 Insulin Regular Human 300 Unit/3 Ml Vial SUBQ Not Given Q6HR [facility] Protocol Sodium Chloride 10 ml 01/23/22 01:00 01/23/22 00:06 Sodium Chloride Flush 0.9% 10 Ml Syringe IVP 10 ml 0100,0900,1700 CORI Administration - Lab Result Fish Bone Diagrams: 01/23/22 04:48 01/23/22 04:48 - Additional Planning My Orders: My Active Orders 01/23/22 07:18 Miscellaenous Nursing Order [RC] ONCE Subjective - Subjective Patient Reports: Other (He was resting comfortably in bed. However he complained of pain in his left knee. Distal half of the left knee appears erythematous. Erythema spreads down to his m[place]oll[place]. The area has been demarcated. He has been afebrile.) Objective Vital Signs: Vital Signs - 24 hr 01/22/22 01/22/22 01/22/22 13:25 16:54 20:09 Temperature 36.5 C 36.9 C Heart Rate 96 79 64 Heart Rate [ Brachial] Heart Rate [ Radial] Respiratory 16 20 18 Rate Blood Pressure 118/79 115/68 122/64 Blood Pressure [Right Brachial artery] O2 Saturation 100 99 99 01/22/22 01/22/22 01/23/22 20:50 21:36 00:08 Temperature 36.5 C 37.4 C 36.6 C Heart Rate 65 Heart Rate [ 75 Brachial] Heart Rate [ 87 Radial] Respiratory 18 16 16 Rate Blood Pressure 118/79 Blood Pressure 144/70 H 122/64 [Right Brachial artery] O2 Saturation 99 100 94 01/23/22 05:42 Temperature 37.2 C Heart Rate Heart Rate [ 77 Brachial] Heart Rate [ Radial] Respiratory 16 Rate Blood Pressure Blood Pressure 113/48 L [Right Brachial artery] O2 Saturation 100 Oxygen O2 Source Room air I&O (Last 24 Hrs): Intake and Output Totals x24h 01/21/22 01/22/22 01/23/22 22:59 23:59 23:59 Intake Total 200 Balance 200 General: Alert, Oriented x3, Mild distress, Moderate distress HEENT: PERRLA, EOMI Neck: Supple, No JVD Neuro: Alert, Oriented Times 3 Cardiovascular: Regular rate, No murmurs Respiratory: Chest non-tender, No respiratory distress, Breath sounds nml Abdomen: Normal bowel sounds, Soft, No tenderness Extremities: No clubbing, No cyanosis, Other (Swelling on the distal half of left knee. Redness from the left knee distally.) - Results Results: Laboratory Results WBC 14.3 x10^3/uL (4.8-10.8) H 01/23/22 04:48 RBC 3.94 10^6/uL (4.70-6.10) L 01/23/22 04:48 Hgb 11.7 g/dL (14.0-18.0) L 01/23/22 04:48 Hct 34.2 % (42.0-52.0) L 01/23/22 04:48 MCV 86.8 fL (80.0-94.0) 01/23/22 04:48 MCH 29.7 pg (27.0-31.0) 01/23/22 04:48 MCHC 34.2 g/dL (32.0-36.0) 01/23/22 04:48 RDW 12.8 % (12.0-15.0) 01/23/22 04:48 Plt Count 273 10^3/uL (130-450) 01/23/22 04:48 MPV 10.1 fL (7.4-11.4) 01/23/22 04:48 Neut # (Auto) Not Reportable 01/23/22 04:48 Lymph # (Auto) Not Reportable 01/23/22 04:48 [place] # (Auto) Not Reportable 01/23/22 04:48 Eos # (Auto) Not Reportable 01/23/22 04:48 Baso # (Auto) Not Reportable 01/23/22 04:48 Absolute Nucleated RBC Not Reportable 01/23/22 04:48 Total Counted 100 01/23/22 04:48 Band Neuts % (Manual) 0 % (0-10) 01/23/22 04:48 Abnorm Lymph % (Manual) 0 % 01/23/22 04:48 Nucleated RBC % Not Reportable 01/23/22 04:48 Neutrophils # (Manual) 11.2 10^3/uL (1.5-6.6) H 01/23/22 04:48 Lymphocytes # (Manual) 1.9 10^3/uL (1.5-3.5) 01/23/22 04:48 Monocytes # (Manual) 1.3 10^3/uL (0.0-1.0) H 01/23/22 04:48 Eosinophils # (Manual) 0.0 10^3/uL (0-0.7) 01/23/22 04:48 Basophils # (Manual) 0.0 10^3/uL (0-0.1) 01/23/22 04:48 Differential Comment MANUAL DIFFERENTIAL 01/23/22 04:48 WBC Morphology NORMAL APPEARANCE (NORMAL) 01/23/22 04:48 Platelet Estimate NORMAL (130-450,000) (NORMAL) 01/23/22 04:48 Platelet Morphology NORMAL APPEARANCE (NORMAL) 01/23/22 04:48 RBC Morph Micro Appear NORMAL APPEARANCE (NORMAL) 01/23/22 04:48 ESR 66 mm/Hr (0-20) H 01/23/22 04:48 Sodium 135 mmol/L (135-145) 01/23/22 04:48 Potassium 3.5 mmol/L (3.5-5.0) 01/23/22 04:48 Chloride 100 mmol/L (101-111) L 01/23/22 04:48 Carbon Dioxide 24 mmol/L (21-32) 01/23/22 04:48 Anion Gap 11.0 (6-13) 01/23/22 04:48 BUN 13 mg/dL (6-20) 01/23/22 04:48 Creatinine 0.7 mg/dL (0.6-1.2) 01/23/22 04:48 Estimated GFR (MDRD) 113 (>89) 01/23/22 04:48 Glucose 141 mg/dL (70-100) H 01/23/22 04:48 POC Whole Bld Glucose 113 mg/dL (70 - 100) H 01/23/22 05:47 Lactic Acid 1.1 mmol/L (0.5-2.2) 01/22/22 18:58 Calcium 8.4 mg/dL (8.5-10.3) L 01/23/22 04:48 Total Bilirubin 0.9 mg/dL (0.2-1.0) 01/23/22 04:48 AST 32 IU/L (10-42) 01/23/22 04:48 ALT 48 IU/L (10-60) 01/23/22 04:48 Alkaline Phosphatase 93 IU/L (42-121) 01/23/22 04:48 C-Reactive Protein 5.3 mg/dL (0-1.0) H 01/22/22 17:32 Total Protein 6.7 g/dL (6.7-8.2) 01/23/22 04:48 Albumin 3.1 g/dL (3.2-5.5) L 01/23/22 04:48 Globulin 3.6 g/dL (2.1-4.2) 01/23/22 04:48 Albumin/Globulin Ratio 0.9 (1.0-2.2) L 01/23/22 04:48 Nasal Adenovirus (PCR) NOT DETECTED 01/22/22 19:17 Nasal B. parapertussis DNA (PCR) NOT DETECTED 01/22/22 19:17 Nasal Coronavir 229E PCR NOT DETECTED 01/22/22 19:17 Nasal Coronavir HKU1 PCR NOT DETECTED 01/22/22 19:17 Nasal Coronavir NL63 PCR NOT DETECTED 01/22/22 19:17 Nasal Coronavir OC43 PCR NOT DETECTED 01/22/22 19:17 Nasal Enterovir/Rhinovir PCR NOT DETECTED 01/22/22 19:17 Nasal Influenza B PCR NOT DETECTED 01/22/22 19:17 Nasal Influenza A PCR NOT DETECTED 01/22/22 19:17 Nasal Parainfluen 1 PCR NOT DETECTED 01/22/22 19:17 Nasal Parainfluen 2 PCR NOT DETECTED 01/22/22 19:17 Nasal Parainfluen 3 PCR NOT DETECTED 01/22/22 19:17 Nasal Parainfluen 4 PCR NOT DETECTED 01/22/22 19:17 Nasal RSV (PCR) NOT DETECTED 01/22/22 19:17 Nasal B.pertussis DNA PCR NOT DETECTED 01/22/22 19:17 Nasal C.pneumoniae (PCR) NOT DETECTED 01/22/22 19:17 [place] Human Metapneumo PCR NOT DETECTED 01/22/22 19:17 Nasal M.pneumoniae (PCR) NOT DETECTED 01/22/22 19:17 Nasal SARS-CoV-2 (PCR) NOT DETECTED 01/22/22 19:17 - Procedures Procedures: Procedures EXCISION OF ASCENDING COLON, ENDO (08/05/21) EXCISION OF DESCENDING COLON, ENDO (08/05/21) EXCISION OF RECTUM, ENDO (08/05/21) EXCISION OF SIGMOID COLON, ENDO (08/05/21) EXCISION OF TRANSVERSE COLON, ENDO (08/05/21) ABX Reporting Has patient been on IV antibiotics over the past 48 hours?: Yes
[2022-01-23 09:16] LABS: ESTIMATED AVERAGE GLUCOSE 169 mg/dL (70-100); HEMOGLOBIN A1c% 7.5 % (4.27-6.07)
[2022-01-23] MEDS: ENOXAPARIN 40 MG/0.4 ML SYRINGE SUBQ SCH (09:18)
--- NOTE | 2022-01-23 10:57 | PHARMACY PROGRESS NOTE ---
- Best Possible Medication History Admit Date and Time: 01/23/22 0734 Processed by: Pharmacy Medication History completed: Yes Patient Interview: Completed Secondary Source(s): Physician records, Insurance records As the person ultimately responsible for medication therapy, providers are able to order a medication from an existing home medication list in [facility] via the "Reconcile Routine" prior to Confirmation of that medication by family support coordinator. Such practice is discouraged except when the physician, in their clinical judgment, deems that a medical need exists for a medication without regard to previous use.
[2022-01-23] MEDS: ACETAMINOPHEN 325 MG TABLET PO PRN ×2 (11:50→18:33)
[2022-01-23] MEDS ORDERED: INSULIN ASPART 300 UNIT/3 ML PEN SUBQ SCH (12:00)
--- NOTE | 2022-01-23 15:35 | PHARMACY PROGRESS NOTE ---
- Therapy Status Vancomycin regimen day #: 2 Therapy status: Awaiting steady state Basis for treatment: Empirical Treatment indication: Cellulitis Trough goal: 15-20 Concurrent antibiotics: Unasyn - VLADIMIR Risk Risk level for Acute Kidney Injury: Moderate Acute Kidney Injury risk factors: IV contrast within 72 hrs, Goal trough >15, Chronic baseline hypertension, Diabetes - Monitoring and Recommendation Clinical response to treatment: I&O Previous 24 hours 01/21/22 01/22/22 01/23/22 22:59 23:59 23:59 Intake Total 1760 Balance 1760 Lab Results 01/23/22 01/23/22 01/22/22 04:48 04:48 17:32 ESR 66 H BUN 13 15 Creatinine 0.7 0.9 Estimated GFR (MDRD) 113 84 L 01/22/22 17:32 ESR 52 H BUN Creatinine Estimated GFR (MDRD) Monitoring plan: Daily serum creatinine Next trough due prior to maintenance dose #: 6 Next trough due (date/time): 01/25/22 @ 1700 Areas for additional monitoring: IV to PO when appropriate, Therapy de-es calation based on culture results, Acute Kidney Injury Pharmacy recommendation: Continue current regime
[2022-01-23] MEDS: INSULIN ASPART 300 UNIT/3 ML PEN SUBQ SCH ×2 (16:49→21:12)
[2022-01-23] MEDS: VANCOMYCIN INJ 1 GM, VANCOMYCIN INJ 250 MG in SODIUM CHLORIDE 0.9% 250 ML IV SCH (19:05)
[2022-01-23] MEDS: INSULIN GLARGINE 300 UNIT/3 ML PEN SUBQ SCH (21:12)
[2022-01-24] MEDS: ACETAMINOPHEN 325 MG TABLET PO PRN ×5 (01:53→23:54)
[2022-01-24 05:05] LABS: BASOPHILS % (AUTO) 0.3 %; EOSINOPHILS # (AUTO) 0.1 10^3/uL (0.0-0.7); EOSINOPHILS % (AUTO) 1.1 %; HCT - HEMATOCRIT 31.4 % (42.0-52.0); HGB - HEMOGLOBIN 10.8 g/dL (14.0-18.0); LYMPHOCYTES # (AUTO) 1.5 10^3/uL (1.5-3.5); MEAN CORPUSCULAR HEMOGLOBIN 30.2 pg (27.0-31.0); MEAN CORPUSCULAR HGB CONC 34.4 g/dL (32.0-36.0); MEAN CORPUSCULAR VOLUME 87.7 fL (80.0-94.0); MEAN PLATELET VOLUME 9.3 fL (7.4-11.4); MONOCYTES # (AUTO) 1.5 10^3/uL (0.0-1.0); MONOCYTES % (AUTO) 12.7 %; NEUTROPHILS # (AUTO) 8.5 10^3/uL (1.5-6.6); NEUTROPHILS % (AUTO) 72.3 %; PLT - PLATELET COUNT 281 10^3/uL (130-450); RED BLOOD COUNT 3.58 10^6/uL (4.70-6.10); WHITE BLOOD COUNT 11.7 x10^3/uL (4.8-10.8)
[2022-01-24 05:21] LABS: ALBUMIN 2.6 g/dL (3.2-5.5); ALBUMIN/GLOBULIN RATIO 0.7 (1.0-2.2); BILIRUBIN,TOTAL 0.6 mg/dL (0.2-1.0); CALCIUM 8.3 mg/dL (8.5-10.3); CREATININE 0.7 mg/dL (0.6-1.2); POTASSIUM 3.7 mmol/L (3.5-5.0); TOTAL PROTEIN 6.2 g/dL (6.7-8.2)
[2022-01-24] MEDS: AMPICILLIN/SULBACTAM 3 GM in SODIUM CHLORIDE 0.9% MINIBAG 100 ML IV SCH ×4 (05:29→23:49)
[2022-01-24] MEDS: VANCOMYCIN INJ 1 GM, VANCOMYCIN INJ 250 MG in SODIUM CHLORIDE 0.9% 250 ML IV SCH ×2 (06:37→19:22)
[2022-01-24] MEDS: SODIUM CHLORIDE FLUSH 0.9% 10 ML SYRINGE IVP SCH ×3 (06:40→23:49)
[2022-01-24] MEDS: INSULIN ASPART 300 UNIT/3 ML PEN SUBQ SCH ×4 (07:42→21:10)
[2022-01-24] MEDS: ENOXAPARIN 40 MG/0.4 ML SYRINGE SUBQ SCH (08:29)
[2022-01-24] MEDS: lisinopriL 5 MG TABLET PO SCH (08:29)
[2022-01-24] MEDS: ATORVASTATIN 10 MG TABLET PO SCH (08:30)
--- NOTE | 2022-01-24 10:11 | PROVIDER PROGRESS NOTE ---
Assessment/Plan - Problem List (1) Cellulitis of left lower leg Assessment/Plan: 01/24 improved. WBC is down to 11.7, swelling is significantly reduced, blood culture is negative. but still present warmth and mild to moderate erythema. CT of the left lower extremity was negative for abscess, No soft tissue gas was seen. Duplex of the left lower extremity was negative for DVTs. continue IV antibiotics vancomycin and Unasyn, add probiotics. discussed with pt about skin care and prevention of cellulitis at pt's hx of diabetes. (2) Diabetes mellitus glucose is good control at hospital, HgA1C was 7.5 continue home dosage of Lantus 34 units subcu daily, Accu-Cheks at [facility], Sliding scale insulin, hypoglycemia protocol Carb controlled diet ordered. - Current Meds Current Meds: Current Medications Generic Name Dose Route Start Last Admin Trade Name Freq PRN Reason Stop Dose Admin Acetaminophen 650 mg 01/22/22 20:24 01/24/22 06:49 Acetaminophen 325 Mg Tablet PO 650 mg Q4HR PRN Administration Pain or Fever > 38C (100.4F) Hydrocodone Bitart/Acetaminophen 1 tab 01/22/22 20:24 01/22/22 21:45 Hydrocod/Acetam 10 Mg/325 Mg Tablet PO 1 tab Q4HR PRN Administration Pain 8 to 10 Atorvastatin Calcium 20 mg 01/24/22 09:00 01/24/22 08:30 Atorvastatin 10 Mg Tablet PO 20 mg DAILY CORI Administration Enoxaparin Sodium 40 mg 01/23/22 09:00 01/24/22 08:29 Enoxaparin 40 Mg/0.4 Ml Syringe SUBQ 40 mg DAILY CORI Administration Ampicillin Sodium/Sulbactam 100 mls @ 200 mls/hr 01/23/22 00:00 01/24/22 05:59 Sodium 3 gm/ Sodium Chloride IV Infused Q6HR CORI Infusion Vancomycin HCl 1 gm/ 250 mls @ 167 mls/hr 01/23/22 18:00 01/24/22 08:15 Vancomycin HCl 250 mg/ Sodium IV Infused Chloride Q12H CORI Infusion Insulin Aspart 1 - 9 unit 01/23/22 17:00 01/24/22 07:42 Insulin Aspart 300 Unit/3 Ml Pen SUBQ Not Given 0800,1200,1700,2100 [facility] Protocol Insulin Glargine 34 unit 01/23/22 21:00 01/23/22 21:12 Insulin Glargine 300 Unit/3 Ml Pen SUBQ 34 unit QPM CORI Administration Lisinopril 2.5 mg 01/24/22 09:00 01/24/22 08:29 Lisinopril 5 Mg Tablet PO 2.5 mg DAILY CORI Administration Sodium Chloride 10 ml 01/23/22 01:00 01/24/22 06:40 Sodium Chloride Flush 0.9% 10 Ml Syringe IVP 10 ml 0100,0900,1700 CORI Administration - Lab Result Fish Bone Diagrams: 01/24/22 04:59 01/24/22 04:59 - Additional Planning My Orders: My Active Orders 01/24/22 10:06 FERRITIN [IAI] Routine IRON TIBC PANEL [CHEM] Routine LDH - LACTATE DEHYDROGENASE [CHEM] Routine RETIC [HEME] Routine VITAMIN B12 [IAI] Routine 01/25/22 05:00 BMP - BASIC METABOLIC PANEL [CHEM] DAILYLAB CBC - COMP BLD CT W/AUTO DIFF [HEME] DAILYLAB CRP - C-REACTIVE PROTEIN [CHEM] DAILYLAB 01/26/22 05:00 BMP - BASIC METABOLIC PANEL [CHEM] DAILYLAB CBC - COMP BLD CT W/AUTO DIFF [HEME] DAILYLAB CRP - C-REACTIVE PROTEIN [CHEM] DAILYLAB 01/27/22 05:00 BMP - BASIC METABOLIC PANEL [CHEM] DAILYLAB CBC - COMP BLD CT W/AUTO DIFF [HEME] DAILYLAB CRP - C-REACTIVE PROTEIN [CHEM] DAILYLAB 01/28/22 05:00 BMP - BASIC METABOLIC PANEL [CHEM] DAILYLAB CBC - COMP BLD CT W/AUTO DIFF [HEME] DAILYLAB 01/29/22 05:00 BMP - BASIC METABOLIC PANEL [CHEM] DAILYLAB CBC - COMP BLD CT W/AUTO DIFF [HEME] DAILYLAB Subjective - Subjective Patient Reports: Feeling Better, Resting Comfortably Objective Vital Signs: Vital Signs - 24 hr 01/23/22 01/23/22 01/23/22 11:25 16:04 20:39 Temperature 37.5 C 37.1 C 37.8 C Heart Rate [ 75 68 80 Brachial] Respiratory 18 19 14 Rate Blood Pressure 146/75 H 119/56 L 120/61 [Right Brachial artery] O2 Saturation 98 96 98 01/23/22 01/24/22 01/24/22 23:45 05:00 07:22 Temperature 37.6 C 37.3 C 37.4 C Heart Rate [ 78 62 71 Brachial] Respiratory 17 16 16 Rate Blood Pressure 132/72 H 112/65 135/74 H [Right Brachial artery] O2 Saturation 98 100 96 Oxygen O2 Source Room air I&O (Last 24 Hrs): Intake and Output Totals x24h 01/22/22 01/23/22 01/24/22 23:59 23:59 23:59 Intake Total 2860 1320 Balance 2860 1320 General: Alert, Oriented x3, Cooperative, No acute distress HEENT: Atraumatic Neck: Supple Lymphatic: no adenopathy Neuro: Alert, Non Focal, Oriented Times 3 Cardiovascular: Regular rate, Normal S1, Normal S2 Respiratory: Chest non-tender, No respiratory distress Abdomen: Normal bowel sounds, Soft Extremities: Normal pulses, Other (Left lower extremity with mild to moderate erythema and warmth. There is no left knee swelling and slightly mild swelling at left lower extremity.) - Results Results: Laboratory Results WBC 11.7 x10^3/uL (4.8-10.8) H 01/24/22 04:59 RBC 3.58 10^6/uL (4.70-6.10) L 01/24/22 04:59 Hgb 10.8 g/dL (14.0-18.0) L 01/24/22 04:59 Hct 31.4 % (42.0-52.0) L 01/24/22 04:59 MCV 87.7 fL (80.0-94.0) 01/24/22 04:59 MCH 30.2 pg (27.0-31.0) 01/24/22 04:59 MCHC 34.4 g/dL (32.0-36.0) 01/24/22 04:59 RDW 13.0 % (12.0-15.0) 01/24/22 04:59 Plt Count 281 10^3/uL (130-450) 01/24/22 04:59 MPV 9.3 fL (7.4-11.4) 01/24/22 04:59 Neut # (Auto) 8.5 10^3/uL (1.5-6.6) H 01/24/22 04:59 Lymph # (Auto) 1.5 10^3/uL (1.5-3.5) 01/24/22 04:59 [place] # (Auto) 1.5 10^3/uL (0.0-1.0) H 01/24/22 04:59 Eos # (Auto) 0.1 10^3/uL (0.0-0.7) 01/24/22 04:59 Baso # (Auto) 0.0 10^3/uL (0.0-0.1) 01/24/22 04:59 Absolute Nucleated RBC 0.00 x10^3/uL 01/24/22 04:59 Total Counted 100 01/23/22 04:48 Band Neuts % (Manual) 0 % (0-10) 01/23/22 04:48 Abnorm Lymph % (Manual) 0 % 01/23/22 04:48 Nucleated RBC % 0.0 /100WBC 01/24/22 04:59 Neutrophils # (Manual) 11.2 10^3/uL (1.5-6.6) H 01/23/22 04:48 Lymphocytes # (Manual) 1.9 10^3/uL (1.5-3.5) 01/23/22 04:48 Monocytes # (Manual) 1.3 10^3/uL (0.0-1.0) H 01/23/22 04:48 Eosinophils # (Manual) 0.0 10^3/uL (0-0.7) 01/23/22 04:48 Basophils # (Manual) 0.0 10^3/uL (0-0.1) 01/23/22 04:48 Differential Comment MANUAL DIFFERENTIAL 01/23/22 04:48 WBC Morphology NORMAL APPEARANCE (NORMAL) 01/23/22 04:48 Platelet Estimate NORMAL (130-450,000) (NORMAL) 01/23/22 04:48 Platelet Morphology NORMAL APPEARANCE (NORMAL) 01/23/22 04:48 RBC Morph Micro Appear NORMAL APPEARANCE (NORMAL) 01/23/22 04:48 ESR 61 mm/Hr (0-20) H 01/24/22 04:59 Sodium 137 mmol/L (135-145) 01/24/22 04:59 Potassium 3.7 mmol/L (3.5-5.0) 01/24/22 04:59 Chloride 101 mmol/L (101-111) 01/24/22 04:59 Carbon Dioxide 26 mmol/L (21-32) 01/24/22 04:59 Anion Gap 10.0 (6-13) 01/24/22 04:59 BUN 12 mg/dL (6-20) 01/24/22 04:59 Creatinine 0.7 mg/dL (0.6-1.2) 01/24/22 04:59 Estimated GFR (MDRD) 113 (>89) 01/24/22 04:59 Glucose 142 mg/dL (70-100) H 01/24/22 04:59 POC Whole Bld Glucose 106 mg/dL (70 - 100) H 01/24/22 07:17 Estimat Average Glucose 169 mg/dL (70-100) H 01/23/22 04:48 Hemoglobin A1c % 7.5 % (4.27-6.07) H 01/23/22 04:48 Lactic Acid 1.1 mmol/L (0.5-2.2) 01/22/22 18:58 Calcium 8.3 mg/dL (8.5-10.3) L 01/24/22 04:59 Total Bilirubin 0.6 mg/dL (0.2-1.0) 01/24/22 04:59 AST 30 IU/L (10-42) 01/24/22 04:59 ALT 39 IU/L (10-60) 01/24/22 04:59 Alkaline Phosphatase 85 IU/L (42-121) 01/24/22 04:59 C-Reactive Protein 5.1 mg/dL (0-1.0) H 01/24/22 04:59 Total Protein 6.2 g/dL (6.7-8.2) L 01/24/22 04:59 Albumin 2.6 g/dL (3.2-5.5) L 01/24/22 04:59 Globulin 3.6 g/dL (2.1-4.2) 01/24/22 04:59 Albumin/Globulin Ratio 0.7 (1.0-2.2) L 01/24/22 04:59 Nasal Adenovirus (PCR) NOT DETECTED 01/22/22 19:17 Nasal B. parapertussis DNA (PCR) NOT DETECTED 01/22/22 19:17 Nasal Coronavir 229E PCR NOT DETECTED 01/22/22 19:17 Nasal Coronavir HKU1 PCR NOT DETECTED 01/22/22 19:17 Nasal Coronavir NL63 PCR NOT DETECTED 01/22/22 19:17 Nasal Coronavir OC43 PCR NOT DETECTED 01/22/22 19:17 Nasal Enterovir/Rhinovir PCR NOT DETECTED 01/22/22 19:17 Nasal Influenza B PCR NOT DETECTED 01/22/22 19:17 Nasal Influenza A PCR NOT DETECTED 01/22/22 19:17 Nasal Parainfluen 1 PCR NOT DETECTED 01/22/22 19:17 Nasal Parainfluen 2 PCR NOT DETECTED 01/22/22 19:17 Nasal Parainfluen 3 PCR NOT DETECTED 01/22/22 19:17 Nasal Parainfluen 4 PCR NOT DETECTED 01/22/22 19:17 Nasal RSV (PCR) NOT DETECTED 01/22/22 19:17 Nasal B.pertussis DNA PCR NOT DETECTED 01/22/22 19:17 Nasal C.pneumoniae (PCR) NOT DETECTED 01/22/22 19:17 [place] Human Metapneumo PCR NOT DETECTED 01/22/22 19:17 Nasal M.pneumoniae (PCR) NOT DETECTED 01/22/22 19:17 Nasal SARS-CoV-2 (PCR) NOT DETECTED 01/22/22 19:17 - Procedures Procedures: Procedures EXCISION OF ASCENDING COLON, ENDO (08/05/21) EXCISION OF DESCENDING COLON, ENDO (08/05/21) EXCISION OF RECTUM, ENDO (08/05/21) EXCISION OF SIGMOID COLON, ENDO (08/05/21) EXCISION OF TRANSVERSE COLON, ENDO (08/05/21) ABX Reporting Has patient been on IV antibiotics over the past 48 hours?: Yes Current Medications - Current Medications Current Medications: Active Medications Acetaminophen (Acetaminophen 325 Mg Tablet) 650 mg PO Q4HR PRN PRN Reason: Pain or Fever > 38C (100.4F) Last Admin: 01/24/22 06:49 Dose: 650 mg Hydrocodone Bitart/Acetaminophen (Hydrocod/Acetam 10 Mg/325 Mg Tablet) 1 tab PO Q4HR PRN PRN Reason: Pain 8 to 10 Last Admin: 01/22/22 21:45 Dose: 1 tab Atorvastatin Calcium (Atorvastatin 10 Mg Tablet) 20 mg PO DAILY [facility] Last Admin: 01/24/22 08:30 Dose: 20 mg Enoxaparin Sodium (Enoxaparin 40 Mg/0.4 Ml Syringe) 40 mg SUBQ DAILY [facility] Last Admin: 01/24/22 08:29 Dose: 40 mg Ampicillin Sodium/Sulbactam (Sodium 3 gm/ Sodium Chloride) 100 mls @ 200 mls/hr IV Q6HR [facility] Last Infusion: 01/24/22 05:59 Dose: Infused Vancomycin HCl 1 gm/Vancomycin HCl 250 mg/ Sodium Chloride 250 mls @ 167 mls/hr IV Q12H [facility] Last Infusion: 01/24/22 08:15 Dose: Infused Insulin Aspart (Insulin Aspart 300 Unit/3 Ml Pen) 1 - 9 unit SUBQ 0800,1200,1700,2100 [facility]; Protocol Last Admin: 01/24/22 07:42 Dose: Not Given Insulin Glargine (Insulin Glargine 300 Unit/3 Ml Pen) 34 unit SUBQ QPM [facility] Last Admin: 01/23/22 21:12 Dose: 34 unit Lisinopril (Lisinopril 5 Mg Tablet) 2.5 mg PO DAILY [facility] Last Admin: 01/24/22 08:29 Dose: 2.5 mg Saccharomyces Boulardii (Saccharomyces Boulardii 250 Mg Capsule) 250 mg PO BIDWM [facility] Sodium Chloride (Sodium Chloride Flush 0.9% 10 Ml Syringe) 10 ml IVP PRN PRN PRN Reason: NEEDED PER PROVIDER ORDERS Sodium Chloride (Sodium Chloride Flush 0.9% 10 Ml Syringe) 10 ml IVP 0100,0900,1700 [facility] Last Admin: 01/24/22 06:40 Dose: 10 ml Metformin HCl 500 mg PO DAILY 05/10/14 Atorvastatin [Lipitor] 20 mg PO DAILY 08/05/21 Insulin Glargine [Lantus Solostar] 34 units SUBQ QPM 08/05/21 Lisinopril [Zestril] 2.5 mg PO DAILY 01/23/22 Multivit-Min/FA/Lycopen/Lutein [Centrum Silver Men Tablet] 1 each PO DAILY 01/23/22
[2022-01-24 10:14] LABS: ABSOLUTE RETICS # AUTO 0.031 10^6/uL (0.020-0.110); RED BLOOD COUNT 3.58 10^6/uL (4.70-6.10); RETICULOCYTE COUNT % (AUTO) 0.87 % (0.5-2.3)
[2022-01-24 10:53] LABS: FERRITIN 244.6 ng/mL (23.9-336.2)
[2022-01-24] MEDS: SACCHAROMYCES BOULARDII 250 MG CAPSULE PO SCH ×2 (11:12→18:34)
[2022-01-24 11:31] LABS: % IRON SATURATION 12 % (20-50); IRON 26 ug/dL (45-182); TOTAL IRON BINDING CAPACITY 211 ug/dL (250-450); TRANSFERRIN 151 mg/dL (180-329)
[2022-01-24] MEDS: FERROUS GLUCONATE 324 MG TABLET PO SCH (12:58)
[2022-01-24] MEDS: INSULIN GLARGINE 300 UNIT/3 ML PEN SUBQ SCH (21:10)
[2022-01-25 05:55] LABS: BASOPHILS # (AUTO) 0.1 10^3/uL (0.0-0.1); BASOPHILS % (AUTO) 0.4 %; EOSINOPHILS # (AUTO) 0.2 10^3/uL (0.0-0.7); EOSINOPHILS % (AUTO) 1.5 %; HGB - HEMOGLOBIN 11.8 g/dL (14.0-18.0); LYMPHOCYTES % (AUTO) 17.7 %; MEAN CORPUSCULAR HEMOGLOBIN 29.8 pg (27.0-31.0); MEAN CORPUSCULAR HGB CONC 33.7 g/dL (32.0-36.0); MEAN CORPUSCULAR VOLUME 88.4 fL (80.0-94.0); MEAN PLATELET VOLUME 9.8 fL (7.4-11.4); MONOCYTES # (AUTO) 1.3 10^3/uL (0.0-1.0); MONOCYTES % (AUTO) 11.6 %; NEUTROPHILS # (AUTO) 7.7 10^3/uL (1.5-6.6); NEUTROPHILS % (AUTO) 68.2 %; PLT - PLATELET COUNT 350 10^3/uL (130-450); RED BLOOD COUNT 3.96 10^6/uL (4.70-6.10); WHITE BLOOD COUNT 11.3 x10^3/uL (4.8-10.8)
[2022-01-25 06:11] LABS: CALCIUM 8.5 mg/dL (8.5-10.3); CREATININE 0.7 mg/dL (0.6-1.2); CRP - C-REACTIVE PROTEIN 3.6 mg/dL (0-1.0); POTASSIUM 3.6 mmol/L (3.5-5.0)
[2022-01-25] MEDS: AMPICILLIN/SULBACTAM 3 GM in SODIUM CHLORIDE 0.9% MINIBAG 100 ML IV SCH ×4 (06:43→23:36)
[2022-01-25] MEDS: VANCOMYCIN INJ 1 GM, VANCOMYCIN INJ 250 MG in SODIUM CHLORIDE 0.9% 250 ML IV SCH ×2 (07:34→18:51)
[2022-01-25] MEDS: ATORVASTATIN 10 MG TABLET PO SCH (07:36)
[2022-01-25] MEDS: FERROUS GLUCONATE 324 MG TABLET PO SCH (07:36)
[2022-01-25] MEDS: ENOXAPARIN 40 MG/0.4 ML SYRINGE SUBQ SCH (07:36)
[2022-01-25] MEDS: SACCHAROMYCES BOULARDII 250 MG CAPSULE PO SCH ×2 (07:36→16:58)
[2022-01-25] MEDS: SODIUM CHLORIDE FLUSH 0.9% 10 ML SYRINGE IVP SCH ×3 (07:37→23:36)
[2022-01-25] MEDS: lisinopriL 5 MG TABLET PO SCH (07:37)
[2022-01-25] MEDS: INSULIN ASPART 300 UNIT/3 ML PEN SUBQ SCH ×4 (09:16→21:14)
[2022-01-25] MEDS: polyethylene glycoL 3350 17 GM PACKET PO SCH (09:50)
[2022-01-25] MEDS: ACETAMINOPHEN 325 MG TABLET PO PRN (09:51)
--- NOTE | 2022-01-25 11:04 | PROVIDER PROGRESS NOTE ---
Assessment/Plan - Problem List (1) Cellulitis of left lower leg Assessment/Plan: 01/25 erythema, warmth/hot and pain locates at left lateral below knee but without swelling, unlikely has abscess at there. pt still has elevated WBC, but blood culture is negative. continue IV antibiotics vancomycin and Unasyn, add probiotics on today, continue pain control with ibuprofen PRN 01/24 improved. WBC is down to 11.7, swelling is significantly reduced, blood culture is negative. but still present warmth and mild to moderate erythema. CT of the left lower extremity was negative for abscess, No soft tissue gas was seen. Duplex of the left lower extremity was negative for DVTs. continue IV antibiotics vancomycin and Unasyn, add probiotics. discussed with pt about skin care and prevention of cellulitis at pt's hx of diabetes. (2) Diabetes mellitus glucose is good control at hospital, HgA1C was 7.5 continue home dosage of Lantus 34 units subcu daily, Acc[facility]-Cheks at [facility], Sliding scale insulin, hypoglycemia protocol (3)iron deficiency anemia HGB is 11.8, increased, and low MCV. anemia study show iron deficiency. pt is prescribed iron supplement - Current Meds Current Meds: Current Medications Generic Name Dose Route Start Last Admin Trade Name Freq PRN Reason Stop Dose Admin Hydrocodone Bitart/Acetaminophen 1 tab 01/22/22 20:24 01/22/22 21:45 Hydrocod/Acetam 10 Mg/325 Mg Tablet PO 1 tab Q4HR PRN Administration Pain 8 to 10 Atorvastatin Calcium 20 mg 01/24/22 09:00 01/25/22 07:36 Atorvastatin 10 Mg Tablet PO 20 mg DAILY CORI Administration Enoxaparin Sodium 40 mg 01/23/22 09:00 01/25/22 07:36 Enoxaparin 40 Mg/0.4 Ml Syringe SUBQ 40 mg DAILY CORI Administration Ferrous Gluconate 324 mg 01/24/22 13:00 01/25/22 07:36 Ferrous Gluconate 324 Mg Tablet PO 324 mg DAILYWM CORI Administration Ampicillin Sodium/Sulbactam 100 mls @ 200 mls/hr 01/23/22 00:00 01/25/22 07:33 Sodium 3 gm/ Sodium Chloride IV Infused Q6HR [facility]I Infusion Vancomycin HCl 1 gm/ 250 mls @ 167 mls/hr 01/23/22 18:00 01/25/22 09:16 Vancomycin HCl 250 mg/ Sodium IV Infused Chloride Q12H [facility] Infusion Insulin Aspart 1 - 9 unit 01/23/22 17:00 01/25/22 09:16 Insulin Aspart 300 Unit/3 Ml Pen SUBQ Not Given 0800,1200,1700,2100 [facility] Protocol Insulin Glargine 34 unit 01/23/22 21:00 01/24/22 21:10 Insulin Glargine 300 Unit/3 Ml Pen SUBQ 34 unit QPM [facility] Administration Lisinopril 2.5 mg 01/24/22 09:00 01/25/22 07:37 Lisinopril 5 Mg Tablet PO 2.5 mg DAILY CORI Administration Polyethylene Glycol 17 gm 01/25/22 10:00 01/25/22 09:50 Polyethylene Glycol 3350 17 Gm Packet PO Not Given DAILY CORI Saccharomyces Boulardii 250 mg 01/24/22 10:11 01/25/22 07:36 Saccharomyces Boulardii 250 Mg Capsule PO 250 mg BIDWM [facility] Administration Sodium Chloride 10 ml 01/23/22 01:00 01/25/22 07:37 Sodium Chloride Flush 0.9% 10 Ml Syringe IVP 10 ml 0100,0900,1700 [facility] Administration - Lab Result Fish Bone Diagrams: 01/25/22 04:38 01/25/22 04:38 - Additional Planning My Orders: My Active Orders 01/24/22 10:11 Saccharomyces Boulardii [Florastor] 250 mg PO BIDWM 01/24/22 10:55 Out of bed 3+ hours today [RC] TID 01/24/22 13:00 Ferrous Gluconate [Fergon] 324 mg PO DAILYWM 01/25/22 10:00 polyethylene glycoL 3350 [Miralax] 17 gm PO DAILY 01/25/22 10:57 Ibuprofen [Motrin] 400 mg PO Q6HR PRN 01/25/22 11:00 Pantoprazole [Protonix] 40 mg PO QDAC 01/26/22 05:00 BMP - BASIC METABOLIC PANEL [CHEM] DAILYLAB CBC - COMP BLD CT W/AUTO DIFF [HEME] DAILYLAB CRP - C-REACTIVE PROTEIN [CHEM] DAILYLAB ESR- ERYTHROCYTE SEDIMENT RATE [HEME] DAILYLAB 01/27/22 05:00 BMP - BASIC METABOLIC PANEL [CHEM] DAILYLAB CBC - COMP BLD CT W/AUTO DIFF [HEME] DAILYLAB CRP - C-REACTIVE PROTEIN [CHEM] DAILYLAB ESR- ERYTHROCYTE SEDIMENT RATE [HEME] DAILYLAB 01/28/22 05:00 BMP - BASIC METABOLIC PANEL [CHEM] DAILYLAB CBC - COMP BLD CT W/AUTO DIFF [HEME] DAILYLAB ESR- ERYTHROCYTE SEDIMENT RATE [HEME] DAILYLAB 01/29/22 05:00 BMP - BASIC METABOLIC PANEL [CHEM] DAILYLAB CBC - COMP BLD CT W/AUTO DIFF [HEME] DAILYLAB Subjective - Subjective Patient Reports: Resting Comfortably Objective Vital Signs: Vital Signs - 24 hr 01/24/22 01/24/22 01/24/22 11:09 16:03 19:25 Temperature 37.0 C 37.3 C 37.3 C Heart Rate [ 66 77 Brachial] Heart Rate [ 77 Radial] Respiratory 18 20 18 Rate Blood Pressure [Left Brachial artery] Blood Pressure 136/65 H 132/63 H 139/66 H [Right Brachial artery] O2 Saturation 99 98 98 01/24/22 01/25/22 01/25/22 23:54 04:54 07:38 Temperature 37 C 37.2 C 37.3 C Heart Rate [ 74 72 64 Brachial] Heart Rate [ Radial] Respiratory 19 18 20 Rate Blood Pressure 117/73 [Left Brachial artery] Blood Pressure 144/70 H 140/73 H [Right Brachial artery] O2 Saturation 99 98 96 Oxygen O2 Source Room air I&O (Last 24 Hrs): Intake and Output Totals x24h 01/23/22 01/24/22 01/25/22 23:59 23:59 23:59 Intake Total 2860 2910 1020 Balance 2860 2910 1020 General: Alert, Oriented x3, Cooperative, No acute distress HEENT: Atraumatic Neck: Supple Lymphatic: no adenopathy Neuro: Alert, Non Focal, Oriented Times 3 Cardiovascular: Regular rate, Normal S1, Normal S2 Respiratory: Chest non-tender, No respiratory distress Abdomen: Normal bowel sounds, Soft Extremities: Normal pulses, Other (erythema and warmth at left lateral below of knee.) - Results Results: Laboratory Results WBC 11.3 x10^3/uL (4.8-10.8) H 01/25/22 04:38 RBC 3.96 10^6/uL (4.70-6.10) L 01/25/22 04:38 Hgb 11.8 g/dL (14.0-18.0) L 01/25/22 04:38 Hct 35.0 % (42.0-52.0) L 01/25/22 04:38 MCV 88.4 fL (80.0-94.0) 01/25/22 04:38 MCH 29.8 pg (27.0-31.0) 01/25/22 04:38 MCHC 33.7 g/dL (32.0-36.0) 01/25/22 04:38 RDW 13.0 % (12.0-15.0) 01/25/22 04:38 Plt Count 350 10^3/uL (130-450) 01/25/22 04:38 MPV 9.8 fL (7.4-11.4) 01/25/22 04:38 Reticulocyte % (Auto) 0.87 % (0.5-2.3) 01/24/22 04:59 Neut # (Auto) 7.7 10^3/uL (1.5-6.6) H 01/25/22 04:38 Lymph # (Auto) 2.0 10^3/uL (1.5-3.5) 01/25/22 04:38 [place] # (Auto) 1.3 10^3/uL (0.0-1.0) H 01/25/22 04:38 Eos # (Auto) 0.2 10^3/uL (0.0-0.7) 01/25/22 04:38 Baso # (Auto) 0.1 10^3/uL (0.0-0.1) 01/25/22 04:38 Absolute Nucleated RBC 0.00 x10^3/uL 01/25/22 04:38 Total Counted 100 01/23/22 04:48 Band Neuts % (Manual) 0 % (0-10) 01/23/22 04:48 Abnorm Lymph % (Manual) 0 % 01/23/22 04:48 Nucleated RBC % 0.0 /100WBC 01/25/22 04:38 Neutrophils # (Manual) 11.2 10^3/uL (1.5-6.6) H 01/23/22 04:48 Lymphocytes # (Manual) 1.9 10^3/uL (1.5-3.5) 01/23/22 04:48 Monocytes # (Manual) 1.3 10^3/uL (0.0-1.0) H 01/23/22 04:48 Eosinophils # (Manual) 0.0 10^3/uL (0-0.7) 01/23/22 04:48 Basophils # (Manual) 0.0 10^3/uL (0-0.1) 01/23/22 04:48 Differential Comment MANUAL DIFFERENTIAL 01/23/22 04:48 WBC Morphology NORMAL APPEARANCE (NORMAL) 01/23/22 04:48 Platelet Estimate NORMAL (130-450,000) (NORMAL) 01/23/22 04:48 Platelet Morphology NORMAL APPEARANCE (NORMAL) 01/23/22 04:48 RBC Morph Micro Appear NORMAL APPEARANCE (NORMAL) 01/23/22 04:48 ESR 60 mm/Hr (0-20) H 01/25/22 07:51 Absolute Retic 0.031 10^6/uL (0.020-0.110) 01/24/22 04:59 Sodium 137 mmol/L (135-145) 01/25/22 04:38 Potassium 3.6 mmol/L (3.5-5.0) 01/25/22 04:38 Chloride 101 mmol/L (101-111) 01/25/22 04:38 Carbon Dioxide 25 mmol/L (21-32) 01/25/22 04:38 Anion Gap 11.0 (6-13) 01/25/22 04:38 BUN 9 mg/dL (6-20) 01/25/22 04:38 Creatinine 0.7 mg/dL (0.6-1.2) 01/25/22 04:38 Estimated GFR (MDRD) 113 (>89) 01/25/22 04:38 Glucose 107 mg/dL (70-100) H 01/25/22 04:38 POC Whole Bld Glucose 95 mg/dL (70 - 100) 01/25/22 07:22 Estimat Average Glucose 169 mg/dL (70-100) H 01/23/22 04:48 Hemoglobin A1c % 7.5 % (4.27-6.07) H 01/23/22 04:48 Lactic Acid 1.1 mmol/L (0.5-2.2) 01/22/22 18:58 Calcium 8.5 mg/dL (8.5-10.3) 01/25/22 04:38 Iron 26 ug/dL (45-182) L 01/24/22 04:59 TIBC 211 ug/dL (250-450) L 01/24/22 04:59 % Saturation 12 % (20-50) L 01/24/22 04:59 Transferrin 151 mg/dL (180-329) L 01/24/22 04:59 Ferritin 244.6 ng/mL (23.9-336.2) 01/24/22 04:59 Total Bilirubin 0.6 mg/dL (0.2-1.0) 01/24/22 04:59 AST 30 IU/L (10-42) 01/24/22 04:59 ALT 39 IU/L (10-60) 01/24/22 04:59 Alkaline Phosphatase 85 IU/L (42-121) 01/24/22 04:59 Lactate Dehydrogenase 130 IU/L (91-225) 01/24/22 04:59 C-Reactive Protein 3.6 mg/dL (0-1.0) H 01/25/22 04:38 Total Protein 6.2 g/dL (6.7-8.2) L 01/24/22 04:59 Albumin 2.6 g/dL (3.2-5.5) L 01/24/22 04:59 Globulin 3.6 g/dL (2.1-4.2) 01/24/22 04:59 Albumin/Globulin Ratio 0.7 (1.0-2.2) L 01/24/22 04:59 Vitamin B12 406 pg/mL (180-914) 01/24/22 04:59 Nasal Adenovirus (PCR) NOT DETECTED 01/22/22 19:17 Nasal B. parapertussis DNA (PCR) NOT DETECTED 01/22/22 19:17 Nasal Coronavir 229E PCR NOT DETECTED 01/22/22 19:17 Nasal Coronavir HKU1 PCR NOT DETECTED 01/22/22 19:17 Nasal Coronavir NL63 PCR NOT DETECTED 01/22/22 19:17 Nasal Coronavir OC43 PCR NOT DETECTED 01/22/22 19:17 Nasal Enterovir/Rhinovir PCR NOT DETECTED 01/22/22 19:17 Nasal Influenza B PCR NOT DETECTED 01/22/22 19:17 Nasal Influenza A PCR NOT DETECTED 01/22/22 19:17 Nasal Parainfluen 1 PCR NOT DETECTED 01/22/22 19:17 Nasal Parainfluen 2 PCR NOT DETECTED 01/22/22 19:17 Nasal Parainfluen 3 PCR NOT DETECTED 01/22/22 19:17 Nasal Parainfluen 4 PCR NOT DETECTED 01/22/22 19:17 Nasal RSV (PCR) NOT DETECTED 01/22/22 19:17 Nasal B.pertussis DNA PCR NOT DETECTED 01/22/22 19:17 Nasal C.pneumoniae (PCR) NOT DETECTED 01/22/22 19:17 Jerson Human Metapneumo PCR NOT DETECTED 01/22/22 19:17 Nasal M.pneumoniae (PCR) NOT DETECTED 01/22/22 19:17 Nasal SARS-CoV-2 (PCR) NOT DETECTED 01/22/22 19:17 - Procedures Procedures: Procedures EXCISION OF ASCENDING COLON, ENDO (08/05/21) EXCISION OF DESCENDING COLON, ENDO (08/05/21) EXCISION OF RECTUM, ENDO (08/05/21) EXCISION OF SIGMOID COLON, ENDO (08/05/21) EXCISION OF TRANSVERSE COLON, ENDO (08/05/21) ABX Reporting Has patient been on IV antibiotics over the past 48 hours?: Yes Current Medications - Current Medications Current Medications: Active Medications Hydrocodone Bitart/Acetaminophen (Hydrocod/Acetam 10 Mg/325 Mg Tablet) 1 tab PO Q4HR PRN PRN Reason: Pain 8 to 10 Last Admin: 01/22/22 21:45 Dose: 1 tab Atorvastatin Calcium (Atorvastatin 10 Mg Tablet) 20 mg PO DAILY [facility] Last Admin: 01/25/22 07:36 Dose: 20 mg Enoxaparin Sodium (Enoxaparin 40 Mg/0.4 Ml Syringe) 40 mg SUBQ DAILY [facility] Last Admin: 01/25/22 07:36 Dose: 40 mg Ferrous Gluconate (Ferrous Gluconate 324 Mg Tablet) 324 mg PO DAILYWM [facility] Last Admin: 01/25/22 07:36 Dose: 324 mg Ampicillin Sodium/Sulbactam (Sodium 3 gm/ Sodium Chloride) 100 mls @ 200 mls/hr IV Q6HR [facility] Last Infusion: 01/25/22 07:33 Dose: Infused Vancomycin HCl 1 gm/Vancomycin HCl 250 mg/ Sodium Chloride 250 mls @ 167 mls/hr IV Q12H [facility] Last Infusion: 01/25/22 09:16 Dose: Infused Ibuprofen (Ibuprofen 400 Mg Tablet) 400 mg PO Q6HR PRN PRN Reason: PAIN Insulin Aspart (Insulin Aspart 300 Unit/3 Ml Pen) 1 - 9 unit SUBQ 0800,1200,1700,2100 [facility]; Protocol Last Admin: 01/25/22 09:16 Dose: Not Given Insulin Glargine (Insulin Glargine 300 Unit/3 Ml Pen) 34 unit SUBQ QPM [facility] Last Admin: 01/24/22 21:10 Dose: 34 unit Lisinopril (Lisinopril 5 Mg Tablet) 2.5 mg PO DAILY [facility] Last Admin: 01/25/22 07:37 Dose: 2.5 mg Pantoprazole Sodium (Pantoprazole 40 Mg Tablet) 40 mg PO QDAC [facility] Polyethylene Glycol (Polyethylene Glycol 3350 17 Gm Packet) 17 gm PO DAILY [facility] Last Admin: 01/25/22 09:50 Dose: Not Given Saccharomyces Boulardii (Saccharomyces Boulardii 250 Mg Capsule) 250 mg PO BIDWM [facility] Last Admin: 01/25/22 07:36 Dose: 250 mg Sodium Chloride (Sodium Chloride Flush 0.9% 10 Ml Syringe) 10 ml IVP PRN PRN PRN Reason: NEEDED PER PROVIDER ORDERS Sodium Chloride (Sodium Chloride Flush 0.9% 10 Ml Syringe) 10 ml IVP 0100,0900,1700 [facility] Last Admin: 01/25/22 07:37 Dose: 10 ml Metformin HCl 500 mg PO DAILY 05/10/14 Atorvastatin [Lipitor] 20 mg PO DAILY 08/05/21 Insulin Glargine [Lantus Solostar] 34 units SUBQ QPM 08/05/21 Lisinopril [Zestril] 2.5 mg PO DAILY 01/23/22 Multivit-Min/FA/Lycopen/Lutein [Centrum Silver Men Tablet] 1 each PO DAILY 01/23/22
[2022-01-25] MEDS: PANTOPRAZOLE 40 MG TABLET PO SCH (12:01)
[2022-01-25] MEDS: IBUPROFEN 400 MG TABLET PO PRN (17:51)
[2022-01-25 18:34] LABS: VANCOMYCIN,TROUGH 12.2 ug/mL (10.0-20.0)
[2022-01-25] MEDS: HYDROcod/ACETAM 10 MG/325 MG TABLET PO PRN (18:54)
[2022-01-25] MEDS: INSULIN GLARGINE 300 UNIT/3 ML PEN SUBQ SCH (21:14)
[2022-01-26] MEDS: AMPICILLIN/SULBACTAM 3 GM in SODIUM CHLORIDE 0.9% MINIBAG 100 ML IV SCH ×4 (06:18→23:49)
[2022-01-26] MEDS: PANTOPRAZOLE 40 MG TABLET PO SCH (06:24)
[2022-01-26] MEDS: VANCOMYCIN INJ 1 GM, VANCOMYCIN INJ 250 MG in SODIUM CHLORIDE 0.9% 250 ML IV SCH ×2 (06:49→18:22)
[2022-01-26 07:40] LABS: CALCIUM 8.6 mg/dL (8.5-10.3); CREATININE 0.7 mg/dL (0.6-1.2); CRP - C-REACTIVE PROTEIN 2.7 mg/dL (0-1.0); POTASSIUM 4.3 mmol/L (3.5-5.0)
[2022-01-26 07:49] LABS: BASOPHILS # (AUTO) 0.1 10^3/uL (0.0-0.1); BASOPHILS % (AUTO) 0.5 %; EOSINOPHILS # (AUTO) 0.2 10^3/uL (0.0-0.7); EOSINOPHILS % (AUTO) 1.7 %; HCT - HEMATOCRIT 33.5 % (42.0-52.0); HGB - HEMOGLOBIN 11.3 g/dL (14.0-18.0); LYMPHOCYTES # (AUTO) 1.6 10^3/uL (1.5-3.5); LYMPHOCYTES % (AUTO) 16.4 %; MEAN CORPUSCULAR HEMOGLOBIN 30.1 pg (27.0-31.0); MEAN CORPUSCULAR HGB CONC 33.7 g/dL (32.0-36.0); MEAN CORPUSCULAR VOLUME 89.3 fL (80.0-94.0); MEAN PLATELET VOLUME 9.3 fL (7.4-11.4); MONOCYTES # (AUTO) 1.1 10^3/uL (0.0-1.0); MONOCYTES % (AUTO) 11.2 %; NEUTROPHILS # (AUTO) 6.9 10^3/uL (1.5-6.6); NEUTROPHILS % (AUTO) 69.5 %; PLT - PLATELET COUNT 385 10^3/uL (130-450); RED BLOOD COUNT 3.75 10^6/uL (4.70-6.10); RED CELL DISTRIBUTION WIDTH 13.2 % (12.0-15.0)
[2022-01-26] MEDS: SACCHAROMYCES BOULARDII 250 MG CAPSULE PO SCH ×2 (09:08→17:05)
[2022-01-26] MEDS: ENOXAPARIN 40 MG/0.4 ML SYRINGE SUBQ SCH (09:08)
[2022-01-26] MEDS: FERROUS GLUCONATE 324 MG TABLET PO SCH (09:08)
[2022-01-26] MEDS: INSULIN ASPART 300 UNIT/3 ML PEN SUBQ SCH ×4 (09:08→21:40)
[2022-01-26] MEDS: SODIUM CHLORIDE FLUSH 0.9% 10 ML SYRINGE IVP SCH ×3 (09:09→23:50)
[2022-01-26] MEDS: polyethylene glycoL 3350 17 GM PACKET PO SCH (09:09)
[2022-01-26] MEDS: lisinopriL 5 MG TABLET PO SCH (09:17)
[2022-01-26] MEDS: ATORVASTATIN 10 MG TABLET PO SCH (09:20)
--- NOTE | 2022-01-26 10:28 | XRAY Report ---
PROCEDURE: Knee 2 View LT INDICATIONS: pain and cellulitis around tissue if effusion? TECHNIQUE: 2 views of the left knee. COMPARISON: None. FINDINGS: Bones: No fractures or dislocations. No suspicious bony lesions. Soft tissues: No joint effusion. No suspicious soft tissue calcifications. IMPRESSION: No acute abnormality of the left knee. Reviewed by: Jhonaatn Cordero on 01/26/2022 10:27 AM SAMMY Approved by: Jhonatan Cordero on 01/26/2022 10:27 AM PDT Station ID: [id number]
--- NOTE | 2022-01-26 11:07 | PROVIDER PROGRESS NOTE ---
Assessment/Plan - Problem List (1) Cellulitis of left lower leg Assessment/Plan: 01/26 pt complain of left knee pain, but tissue around left knee does not present erythema, did show mild swelling. Order Xray of left knee. warmth and erythema at left lateral below the knee are reduced, CRP is reduced, WBC became normal arrange now. continue IV antibiotics. if continue improvement, plan D/C pt on tomorrow. 01/25 erythema, warmth/hot and pain locates at left lateral below knee but without swelling, unlikely has abscess at there. pt still has elevated WBC, but blood culture is negative. continue IV antibiotics vancomycin and Unasyn, add probiotics on today, continue pain control with ibuprofen PRN 01/24 improved. WBC is down to 11.7, swelling is significantly reduced, blood culture is negative. but still present warmth and mild to moderate erythema. CT of the left lower extremity was negative for abscess, No soft tissue gas was seen. Duplex of the left lower extremity was negative for DVTs. continue IV antibiotics vancomycin and Unasyn, add probiotics. discussed with pt about skin care and prevention of cellulitis at pt's hx of diabetes. (2) Diabetes mellitus glucose is good control at hospital, HgA1C was 7.5 continue home dosage of Lantus 34 units subcu daily, Accu-Cheks at [facility], Sliding scale insulin, hypoglycemia protocol (3)iron deficiency anemia HGB is 11.8, increased, and low MCV. anemia study show iron deficiency. pt is p rescribed iron supplement - Current Meds Current Meds: Current Medications Generic Name Dose Route Start Last Admin Trade Name Freq PRN Reason Stop Dose Admin Hydrocodone Bitart/Acetaminophen 1 tab 01/22/22 20:24 01/25/22 18:54 Hydrocod/Acetam 10 Mg/325 Mg Tablet PO 1 tab Q4HR PRN Administration Pain 8 to 10 Atorvastatin Calcium 20 mg 01/24/22 09:00 01/26/22 09:20 Atorvastatin 10 Mg Tablet PO 20 mg DAILY CORI Administration Enoxaparin Sodium 40 mg 01/23/22 09:00 01/26/22 09:08 Enoxaparin 40 Mg/0.4 Ml Syringe SUBQ 40 mg DAILY CROI Administration Ferrous Gluconate 324 mg 01/24/22 13:00 01/26/22 09:08 Ferrous Gluconate 324 Mg Tablet PO 324 mg DAILYWM CORI Administration Ampicillin Sodium/Sulbactam 100 mls @ 200 mls/hr 01/23/22 00:00 01/26/22 06:48 Sodium 3 gm/ Sodium Chloride IV Infused Q6HR CORI Infusion Vancomycin HCl 1 gm/ 250 mls @ 167 mls/hr 01/23/22 18:00 01/26/22 08:55 Vancomycin HCl 250 mg/ Sodium IV Infused Chloride Q12H CORI Infusion Ibuprofen 400 mg 01/25/22 10:57 01/25/22 17:51 Ibuprofen 400 Mg Tablet PO 400 mg Q6HR PRN Administration PAIN Insulin Aspart 1 - 9 unit 01/23/22 17:00 01/26/22 09:08 Insulin Aspart 300 Unit/3 Ml Pen SUBQ Not Given 0800,1200,1700,2100 [facility] Protocol Insulin Glargine 34 unit 01/23/22 21:00 01/25/22 21:14 Insulin Glargine 300 Unit/3 Ml Pen SUBQ 34 unit QPM CORI Administration Lisinopril 2.5 mg 01/24/22 09:00 01/26/22 09:17 Lisinopril 5 Mg Tablet PO 2.5 mg DAILY CORI Administration Pantoprazole Sodium 40 mg 01/25/22 11:00 01/26/22 06:24 Pantoprazole 40 Mg Tablet PO 40 mg QDAC CORI Administration Polyethylene Glycol 17 gm 01/25/22 10:00 01/26/22 09:09 Polyethylene Glycol 3350 17 Gm Packet PO Not Given DAILY CORI Saccharomyces Boulardii 250 mg 01/24/22 10:11 01/26/22 09:08 Saccharomyces Boulardii 250 Mg Capsule PO 250 mg BIDWM CORI Administration Sodium Chloride 10 ml 01/23/22 01:00 01/26/22 09:09 Sodium Chloride Flush 0.9% 10 Ml Syringe IVP 10 ml 0100,0900,1700 CORI Administration - Lab Result Fish Bone Diagrams: 01/26/22 07:16 01/26/22 07:16 - Additional Planning My Orders: My Active Orders 01/25/22 10:57 Ibuprofen [Motrin] 400 mg PO Q6HR PRN 01/25/22 11:00 Pantoprazole [Protonix] 40 mg PO QDAC 01/27/22 05:00 BMP - BASIC METABOLIC PANEL [CHEM] DAILYLAB CBC - COMP BLD CT W/AUTO DIFF [HEME] DAILYLAB CRP - C-REACTIVE PROTEIN [CHEM] DAILYLAB ESR- ERYTHROCYTE SEDIMENT RATE [HEME] DAILYLAB 01/28/22 05:00 BMP - BASIC METABOLIC PANEL [CHEM] DAILYLAB CBC - COMP BLD CT W/AUTO DIFF [HEME] DAILYLAB ESR- ERYTHROCYTE SEDIMENT RATE [HEME] DAILYLAB 01/29/22 05:00 BMP - BASIC METABOLIC PANEL [CHEM] DAILYLAB CBC - COMP BLD CT W/AUTO DIFF [HEME] DAILYLAB Subjective - Subjective Patient Reports: Resting Comfortably Objective Vital Signs: Vital Signs - 24 hr 01/25/22 01/25/22 01/25/22 11:46 15:48 20:50 Temperature 37.1 C 37.1 C 37.1 C Heart Rate [ 76 70 82 Brachial] Respiratory 18 16 18 Rate Blood Pressure 143/68 H 128/59 L 139/76 H [Right Brachial artery] O2 Saturation 99 99 100 01/25/22 01/26/22 01/26/22 23:59 06:31 07:47 Temperature 36.9 C 36.9 C 36.9 C Heart Rate [ 67 75 70 Brachial] Respiratory 18 18 18 Rate Blood Pressure 118/57 L 128/60 115/87 H [Right Brachial artery] O2 Saturation 98 98 100 Oxygen O2 Source Room air I&O (Last 24 Hrs): Intake and Output Totals x24h 01/24/22 01/25/22 01/26/22 23:59 23:59 23:59 Intake Total 2910 2370 810 Balance 2910 2370 810 General: Alert, Oriented x3, Cooperative, No acute distress HEENT: Atraumatic Neck: Supple Lymphatic: no adenopathy Neuro: Alert, Non Focal, Oriented Times 3 Cardiovascular: Regular rate, Normal S1, Normal S2 Respiratory: Chest non-tender, No respiratory distress Abdomen: Normal bowel sounds, Soft Extremities: Normal pulses - Results Results: Laboratory Results WBC 10.0 x10^3/uL (4.8-10.8) 01/26/22 07:16 RBC 3.75 10^6/uL (4.70-6.10) L 01/26/22 07:16 Hgb 11.3 g/dL (14.0-18.0) L 01/26/22 07:16 Hct 33.5 % (42.0-52.0) L 01/26/22 07:16 MCV 89.3 fL (80.0-94.0) 01/26/22 07:16 MCH 30.1 pg (27.0-31.0) 01/26/22 07:16 MCHC 33.7 g/dL (32.0-36.0) 01/26/22 07:16 RDW 13.2 % (12.0-15.0) 01/26/22 07:16 Plt Count 385 10^3/uL (130-450) 01/26/22 07:16 MPV 9.3 fL (7.4-11.4) 01/26/22 07:16 Reticulocyte % (Auto) 0.87 % (0.5-2.3) 01/24/22 04:59 Neut # (Auto) 6.9 10^3/uL (1.5-6.6) H 01/26/22 07:16 Lymph # (Auto) 1.6 10^3/uL (1.5-3.5) 01/26/22 07:16 Waldo # (Auto) 1.1 10^3/uL (0.0-1.0) H 01/26/22 07:16 Eos # (Auto) 0.2 10^3/uL (0.0-0.7) 01/26/22 07:16 Baso # (Auto) 0.1 10^3/uL (0.0-0.1) 01/26/22 07:16 Absolute Nucleated RBC 0.00 x10^3/uL 01/26/22 07:16 Total Counted 100 01/23/22 04:48 Band Neuts % (Manual) 0 % (0-10) 01/23/22 04:48 Abnorm Lymph % (Manual) 0 % 01/23/22 04:48 Nucleated RBC % 0.0 /100WBC 01/26/22 07:16 Neutrophils # (Manual) 11.2 10^3/uL (1.5-6.6) H 01/23/22 04:48 Lymphocytes # (Manual) 1.9 10^3/uL (1.5-3.5) 01/23/22 04:48 Monocytes # (Manual) 1.3 10^3/uL (0.0-1.0) H 01/23/22 04:48 Eosinophils # (Manual) 0.0 10^3/uL (0-0.7) 01/23/22 04:48 Basophils # (Manual) 0.0 10^3/uL (0-0.1) 01/23/22 04:48 Differential Comment MANUAL DIFFERENTIAL 01/23/22 04:48 WBC Morphology NORMAL APPEARANCE (NORMAL) 01/23/22 04:48 Platelet Estimate NORMAL (130-450,000) (NORMAL) 01/23/22 04:48 Platelet Morphology NORMAL APPEARANCE (NORMAL) 01/23/22 04:48 RBC Morph Micro Appear NORMAL APPEARANCE (NORMAL) 01/23/22 04:48 ESR 63 mm/Hr (0-20) H 01/26/22 07:16 Absolute Retic 0.031 10^6/uL (0.020-0.110) 01/24/22 04:59 Sodium 137 mmol/L (135-145) 01/26/22 07:16 Potassium 4.3 mmol/L (3.5-5.0) 01/26/22 07:16 Chloride 100 mmol/L (101-111) L 01/26/22 07:16 Carbon Dioxide 28 mmol/L (21-32) 01/26/22 07:16 Anion Gap 9.0 (6-13) 01/26/22 07:16 BUN 11 mg/dL (6-20) 01/26/22 07:16 Creatinine 0.7 mg/dL (0.6-1.2) 01/26/22 07:16 Estimated GFR (MDRD) 113 (>89) 01/26/22 07:16 Glucose 158 mg/dL (70-100) H 01/26/22 07:16 POC Whole Bld Glucose 138 mg/dL (70 - 100) H 01/26/22 07:41 Estimat Average Glucose 169 mg/dL (70-100) H 01/23/22 04:48 Hemoglobin A1c % 7.5 % (4.27-6.07) H 01/23/22 04:48 Lactic Acid 1.1 mmol/L (0.5-2.2) 01/22/22 18:58 Calcium 8.6 mg/dL (8.5-10.3) 01/26/22 07:16 Iron 26 ug/dL (45-182) L 01/24/22 04:59 TIBC 211 ug/dL (250-450) L 01/24/22 04:59 % Saturation 12 % (20-50) L 01/24/22 04:59 Transferrin 151 mg/dL (180-329) L 01/24/22 04:59 Ferritin 244.6 ng/mL (23.9-336.2) 01/24/22 04:59 Total Bilirubin 0.6 mg/dL (0.2-1.0) 01/24/22 04:59 AST 30 IU/L (10-42) 01/24/22 04:59 ALT 39 IU/L (10-60) 01/24/22 04:59 Alkaline Phosphatase 85 IU/L (42-121) 01/24/22 04:59 Lactate Dehydrogenase 130 IU/L (91-225) 01/24/22 04:59 C-Reactive Protein 2.7 mg/dL (0-1.0) H 01/26/22 07:16 Total Protein 6.2 g/dL (6.7-8.2) L 01/24/22 04:59 Albumin 2.6 g/dL (3.2-5.5) L 01/24/22 04:59 Globulin 3.6 g/dL (2.1-4.2) 01/24/22 04:59 Albumin/Globulin Ratio 0.7 (1.0-2.2) L 01/24/22 04:59 Vitamin B12 406 pg/mL (180-914) 01/24/22 04:59 Nasal Adenovirus (PCR) NOT DETECTED 01/22/22 19:17 Nasal B. parapertussis DNA (PCR) NOT DETECTED 01/22/22 19:17 Nasal Coronavir 229E PCR NOT DETECTED 01/22/22 19:17 Nasal Coronavir HKU1 PCR NOT DETECTED 01/22/22 19:17 Nasal Coronavir NL63 PCR NOT DETECTED 01/22/22 19:17 Nasal Coronavir OC43 PCR NOT DETECTED 01/22/22 19:17 Nasal Enterovir/Rhinovir PCR NOT DETECTED 01/22/22 19:17 Nasal Influenza B PCR NOT DETECTED 01/22/22 19:17 Nasal Influenza A PCR NOT DETECTED 01/22/22 19:17 Nasal Parainfluen 1 PCR NOT DETECTED 01/22/22 19:17 Nasal Parainfluen 2 PCR NOT DETECTED 01/22/22 19:17 Nasal Parainfluen 3 PCR NOT DETECTED 01/22/22 19:17 Nasal Parainfluen 4 PCR NOT DETECTED 01/22/22 19:17 Nasal RSV (PCR) NOT DETECTED 01/22/22 19:17 Nasal B.pertussis DNA PCR NOT DETECTED 01/22/22 19:17 Nasal C.pneumoniae (PCR) NOT DETECTED 01/22/22 19:17 Jerson Human Metapneumo PCR NOT DETECTED 01/22/22 19:17 Nasal M.pneumoniae (PCR) NOT DETECTED 01/22/22 19:17 Nasal SARS-CoV-2 (PCR) NOT DETECTED 01/22/22 19:17 Last Dose Date Not Reportable 01/25/22 17:55 Last Dose Time Not Reportable 01/25/22 17:55 Vancomycin Trough 12.2 ug/mL (10.0-20.0) 01/25/22 17:55 - Procedures Procedures: Procedures EXCISION OF ASCENDING COLON, ENDO (08/05/21) EXCISION OF DESCENDING COLON, ENDO (08/05/21) EXCISION OF RECTUM, ENDO (08/05/21) EXCISION OF SIGMOID COLON, ENDO (08/05/21) EXCISION OF TRANSVERSE COLON, ENDO (08/05/21) ABX Reporting Has patient been on IV antibiotics over the past 48 hours?: Yes Current Medications - Current Medications Current Medications: Active Medications Hydrocodone Bitart/Acetaminophen (Hydrocod/Acetam 10 Mg/325 Mg Tablet) 1 tab PO Q4HR PRN PRN Reason: Pain 8 to 10 Last Admin: 01/25/22 18:54 Dose: 1 tab Atorvastatin Calcium (Atorvastatin 10 Mg Tablet) 20 mg PO DAILY [facility] Last Admin: 01/26/22 09:20 Dose: 20 mg Enoxaparin Sodium (Enoxaparin 40 Mg/0.4 Ml Syringe) 40 mg SUBQ DAILY [facility] Last Admin: 01/26/22 09:08 Dose: 40 mg Ferrous Gluconate (Ferrous Gluconate 324 Mg Tablet) 324 mg PO DAILYWM [facility] Last Admin: 01/26/22 09:08 Dose: 324 mg Ampicillin Sodium/Sulbactam (Sodium 3 gm/ Sodium Chloride) 100 mls @ 200 mls/hr IV Q6HR [facility] Last Infusion: 01/26/22 06:48 Dose: Infused Vancomycin HCl 1 gm/Vancomycin HCl 250 mg/ Sodium Chloride 250 mls @ 167 mls/hr IV Q12H [facility] Last Infusion: 01/26/22 08:55 Dose: Infused Ibuprofen (Ibuprofen 400 Mg Tablet) 400 mg PO Q6HR PRN PRN Reason: PAIN Last Admin: 01/25/22 17:51 Dose: 400 mg Insulin Aspart (Insulin Aspart 300 Unit/3 Ml Pen) 1 - 9 unit SUBQ 0800,1200 ,1700,2100 [facility]; Protocol Last Admin: 01/26/22 09:08 Dose: Not Given Insulin Glargine (Insulin Glargine 300 Unit/3 Ml Pen) 34 unit SUBQ QPM [facility] Last Admin: 01/25/22 21:14 Dose: 34 unit Lisinopril (Lisinopril 5 Mg Tablet) 2.5 mg PO DAILY [facility] Last Admin: 01/26/22 09:17 Dose: 2.5 mg Pantoprazole Sodium (Pantoprazole 40 Mg Tablet) 40 mg PO QDAC [facility] Last Admin: 01/26/22 06:24 Dose: 40 mg Polyethylene Glycol (Polyethylene Glycol 3350 17 Gm Packet) 17 gm PO DAILY [facility] Last Admin: 01/26/22 09:09 Dose: Not Given Saccharomyces Boulardii (Saccharomyces Boulardii 250 Mg Capsule) 250 mg PO BIDWM [facility] Last Admin: 01/26/22 09:08 Dose: 250 mg Sodium Chloride (Sodium Chloride Flush 0.9% 10 Ml Syringe) 10 ml IVP PRN PRN PRN Reason: NEEDED PER PROVIDER ORDERS Sodium Chloride (Sodium Chloride Flush 0.9% 10 Ml Syringe) 10 ml IVP 0100,0900,1700 [facility] Last Admin: 01/26/22 09:09 Dose: 10 ml Metformin HCl 500 mg PO DAILY 05/10/14 Atorvastatin [Lipitor] 20 mg PO DAILY 08/05/21 Insulin Glargine [Lantus Solostar] 34 units SUBQ QPM 08/05/21 Lisinopril [Zestril] 2.5 mg PO DAILY 01/23/22 Multivit-Min/FA/Lycopen/Lutein [Centrum Silver Men Tablet] 1 each PO DAILY 01/23/22
[2022-01-26] MEDS: HYDROcod/ACETAM 10 MG/325 MG TABLET PO PRN (14:47)
[2022-01-26] MEDS: INSULIN GLARGINE 300 UNIT/3 ML PEN SUBQ SCH (21:40)
[2022-01-27] MEDS: HYDROcod/ACETAM 10 MG/325 MG TABLET PO PRN ×2 (01:03→12:42)
[2022-01-27 05:34] LABS: BASOPHILS # (AUTO) 0.1 10^3/uL (0.0-0.1); BASOPHILS % (AUTO) 0.5 %; EOSINOPHILS # (AUTO) 0.2 10^3/uL (0.0-0.7); EOSINOPHILS % (AUTO) 1.2 %; HCT - HEMATOCRIT 34.7 % (42.0-52.0); HGB - HEMOGLOBIN 11.7 g/dL (14.0-18.0); LYMPHOCYTES # (AUTO) 1.8 10^3/uL (1.5-3.5); LYMPHOCYTES % (AUTO) 12.8 %; MEAN CORPUSCULAR HGB CONC 33.7 g/dL (32.0-36.0); MONOCYTES # (AUTO) 1.2 10^3/uL (0.0-1.0); MONOCYTES % (AUTO) 8.5 %; NEUTROPHILS # (AUTO) 10.8 10^3/uL (1.5-6.6); NEUTROPHILS % (AUTO) 76.4 %; PLT - PLATELET COUNT 416 10^3/uL (130-450); RED CELL DISTRIBUTION WIDTH 13.1 % (12.0-15.0); WHITE BLOOD COUNT 14.1 x10^3/uL (4.8-10.8)
[2022-01-27 05:50] LABS: CALCIUM 8.6 mg/dL (8.5-10.3); CREATININE 0.7 mg/dL (0.6-1.2); POTASSIUM 3.9 mmol/L (3.5-5.0)
[2022-01-27] MEDS: AMPICILLIN/SULBACTAM 3 GM in SODIUM CHLORIDE 0.9% MINIBAG 100 ML IV SCH ×3 (06:22→17:37)
[2022-01-27] MEDS: PANTOPRAZOLE 40 MG TABLET PO SCH (06:22)
[2022-01-27] MEDS: VANCOMYCIN INJ 1 GM, VANCOMYCIN INJ 250 MG in SODIUM CHLORIDE 0.9% 250 ML IV SCH ×2 (06:54→18:45)
[2022-01-27] MEDS: INSULIN ASPART 300 UNIT/3 ML PEN SUBQ SCH ×4 (07:57→20:30)
[2022-01-27] MEDS: FERROUS GLUCONATE 324 MG TABLET PO SCH (08:34)
[2022-01-27] MEDS: lisinopriL 5 MG TABLET PO SCH (08:34)
[2022-01-27] MEDS: SODIUM CHLORIDE FLUSH 0.9% 10 ML SYRINGE IVP SCH ×2 (08:35→17:37)
[2022-01-27] MEDS: ENOXAPARIN 40 MG/0.4 ML SYRINGE SUBQ SCH (08:35)
[2022-01-27] MEDS: SACCHAROMYCES BOULARDII 250 MG CAPSULE PO SCH ×2 (08:35→17:37)
[2022-01-27] MEDS: ATORVASTATIN 10 MG TABLET PO SCH (08:36)
[2022-01-27] MEDS: polyethylene glycoL 3350 17 GM PACKET PO SCH (08:41)
--- NOTE | 2022-01-27 10:42 | PROVIDER PROGRESS NOTE ---
Assessment/Plan - Problem List (1) Cellulitis of left lower leg Assessment/Plan: 01/27 Xray of left show no acute abnormality. erythema and warmth left lateral below the knee is worsening but swelling is resolved and not indicated to have abscess. pt complain of pain when he bend his left knee. WBC and ESR are increased. discussed with pharmacy to recheck Vancomycin therapeutics level, continue IV of antibiotics Unsyn and Vancomycine as well now. 01/26 pt complain of left knee pain, but tissue around left knee does not present erythema, did show mild swelling. Order Xray of left knee. warmth and erythema at left lateral below the knee are reduced, CRP is reduced, WBC became normal arrange now. continue IV antibiotics. if continue improvement, plan D/C pt on tomorrow. 01/25 erythema, warmth/hot and pain locates at left lateral below knee but without swelling, unlikely has abscess at there. pt still has elevated WBC, but blood culture is negative. continue IV antibiotics vancomycin and Unasyn, add probiotics on today, continue pain control with ibuprofen PRN 01/24 improved. WBC is down to 11.7, swelling is significantly reduced, blood culture is negative. but still present warmth and mild to moderate erythema. CT of the left lower extremity was negative for abscess, No soft tissue gas was seen. Duplex of the left lower extremity was negative for DVTs. continue IV antibiotics vancomycin and Unasyn, add probiotics. discussed with pt about skin care and prevention of cellulitis at pt's hx of diabetes. (2) Diabetes mellitus glucose is good control at hospital, HgA1C was 7.5 continue home dosage of Lantus 34 units subcu daily, [facility]Cheks at [facility], Sliding scale insulin, hypoglycemia protocol (3)iron deficiency anemia HGB is 11.8, increased, and low MCV. anemia study show iron deficiency. pt is prescribed iron supplement - Current Meds Current Meds: Current Medications Generic Name Dose Route Start Last Admin Trade Name Freq PRN Reason Stop Dose Admin Hydrocodone Bitart/Acetaminophen 1 tab 01/22/22 20:24 01/27/22 01:03 Hydrocod/Acetam 10 Mg/325 Mg Tablet PO 1 tab Q4HR PRN Administration Pain 8 to 10 Atorvastatin Calcium 20 mg 01/24/22 09:00 01/27/22 08:36 Atorvastatin 10 Mg Tablet PO 20 mg DAILY CORI Administration Enoxaparin Sodium 40 mg 01/23/22 09:00 01/27/22 08:35 Enoxaparin 40 Mg/0.4 Ml Syringe SUBQ 40 mg DAILY CORI Administration Ferrous Gluconate 324 mg 01/24/22 13:00 01/27/22 08:34 Ferrous Gluconate 324 Mg Tablet PO 324 mg DAILYWM CORI Administration Ampicillin Sodium/Sulbactam 100 mls @ 200 mls/hr 01/23/22 00:00 01/27/22 06:54 Sodium 3 gm/ Sodium Chloride IV Infused Q6HR [facility]I Infusion Vancomycin HCl 1 gm/ 250 mls @ 167 mls/hr 01/23/22 18:00 01/27/22 08:26 Vancomycin HCl 250 mg/ Sodium IV Infused Chloride Q12H [facility]I Infusion Ibuprofen 400 mg 01/25/22 10:57 01/25/22 17:51 Ibuprofen 400 Mg Tablet PO 400 mg Q6HR PRN Administration PAIN Insulin Aspart 2 - 10 unit 01/27/22 08:00 01/27/22 07:57 Insulin Aspart 300 Unit/3 Ml Pen SUBQ Not Given 0800,1200,1700,2100 [facility] Protocol Insulin Glargine 34 unit 01/23/22 21:00 01/26/22 21:40 Insulin Glargine 300 Unit/3 Ml Pen SUBQ 34 unit QPM CORI Administration Lisinopril 2.5 mg 01/24/22 09:00 01/27/22 08:34 Lisinopril 5 Mg Tablet PO 2.5 mg DAILY CORI Administration Pantoprazole Sodium 40 mg 01/25/22 11:00 01/27/22 06:22 Pantoprazole 40 Mg Tablet PO 40 mg QDAC CORI Administration Polyethylene Glycol 17 gm 01/25/22 10:00 01/27/22 08:41 Polyethylene Glycol 3350 17 Gm Packet PO Not Given DAILY [facility] Saccharomyces Boulardii 250 mg 01/24/22 10:11 01/27/22 08:35 Saccharomyces Boulardii 250 Mg Capsule PO 250 mg BIDWM CORI Administration Sodium Chloride 10 ml 01/23/22 01:00 01/27/22 08:35 Sodium Chloride Flush 0.9% 10 Ml Syringe IVP Not Given 0100,0900,1700 [facility] - Lab Result Fish Bone Diagrams: 01/27/22 05:12 01/27/22 05:12 - Additional Planning My Orders: My Active Orders 01/28/22 05:00 BMP - BASIC METABOLIC PANEL [CHEM] DAILYLAB CBC - COMP BLD CT W/AUTO DIFF [HEME] DAILYLAB ESR- ERYTHROCYTE SEDIMENT RATE [HEME] DAILYLAB 01/29/22 05:00 BMP - BASIC METABOLIC PANEL [CHEM] DAILYLAB CBC - COMP BLD CT W/AUTO DIFF [HEME] DAILYLAB Subjective - Subjective Patient Reports: Resting Comfortably Objective Vital Signs: Vital Signs - 24 hr 01/26/22 01/26/22 01/26/22 13:24 16:03 20:51 Temperature 37.2 C 37.2 C 37.2 C Heart Rate [ 81 76 85 Brachial] Heart Rate [ Radial] Respiratory 18 20 20 Rate Blood Pressure 129/70 [Left Brachial artery] Blood Pressure [Left Radial artery] Blood Pressure 124/65 127/63 [Right Brachial artery] O2 Saturation 100 98 97 01/27/22 01/27/22 01/27/22 00:54 05:00 07:54 Temperature 37.3 C 37.2 C 36.9 C Heart Rate [ 66 Brachial] Heart Rate [ 91 82 Radial] Respiratory 19 19 18 Rate Blood Pressure 121/58 L [Left Brachial artery] Blood Pressure 134/66 H 103/53 L [Left Radial artery] Blood Pressure [Right Brachial artery] O2 Saturation 98 96 99 Oxygen O2 Source Room air I&O (Last 24 Hrs): Intake and Output Totals x24h 01/25/22 01/26/22 01/27/22 23:59 23:59 23:59 Intake Total 0 1979 1460 Balance 2370 1979 1460 General: Alert, Oriented x3, Cooperative, No acute distress HEENT: Atraumatic Neck: Supple Lymphatic: no adenopathy Neuro: Alert, Non Focal, Oriented Times 3 Cardiovascular: Regular rate, Normal S1, Normal S2 Respiratory: Chest non-tender, No respiratory distress Abdomen: Normal bowel sounds, Soft Extremities: Normal pulses, Other (warmth, erythema at left lateral below of knee.) - Results Results: Laboratory Results WBC 14.1 x10^3/uL (4.8-10.8) H 01/27/22 05:12 RBC 3.90 10^6/uL (4.70-6.10) L 01/27/22 05:12 Hgb 11.7 g/dL (14.0-18.0) L 01/27/22 05:12 Hct 34.7 % (42.0-52.0) L 01/27/22 05:12 MCV 89.0 fL (80.0-94.0) 01/27/22 05:12 MCH 30.0 pg (27.0-31.0) 01/27/22 05:12 MCHC 33.7 g/dL (32.0-36.0) 01/27/22 05:12 RDW 13.1 % (12.0-15.0) 01/27/22 05:12 Plt Count 416 10^3/uL (130-450) 01/27/22 05:12 MPV 9.0 fL (7.4-11.4) 01/27/22 05:12 Reticulocyte % (Auto) 0.87 % (0.5-2.3) 01/24/22 04:59 Neut # (Auto) 10.8 10^3/uL (1.5-6.6) H 01/27/22 05:12 Lymph # (Auto) 1.8 10^3/uL (1.5-3.5) 01/27/22 05:12 [place] # (Auto) 1.2 10^3/uL (0.0-1.0) H 01/27/22 05:12 Eos # (Auto) 0.2 10^3/uL (0.0-0.7) 01/27/22 05:12 Baso # (Auto) 0.1 10^3/uL (0.0-0.1) 01/27/22 05:12 Absolute Nucleated RBC 0.00 x10^3/uL 01/27/22 05:12 Total Counted 100 01/23/22 04:48 Band Neuts % (Manual) 0 % (0-10) 01/23/22 04:48 Abnorm Lymph % (Manual) 0 % 01/23/22 04:48 Nucleated RBC % 0.0 /100WBC 01/27/22 05:12 Neutrophils # (Manual) 11.2 10^3/uL (1.5-6.6) H 01/23/22 04:48 Lymphocytes # (Manual) 1.9 10^3/uL (1.5-3.5) 01/23/22 04:48 Monocytes # (Manual) 1.3 10^3/uL (0.0-1.0) H 01/23/22 04:48 Eosinophils # (Manual) 0.0 10^3/uL (0-0.7) 01/23/22 04:48 Basophils # (Manual) 0.0 10^3/uL (0-0.1) 01/23/22 04:48 Differential Comment MANUAL DIFFERENTIAL 01/23/22 04:48 WBC Morphology NORMAL APPEARANCE (NORMAL) 01/23/22 04:48 Platelet Estimate NORMAL (130-450,000) (NORMAL) 01/23/22 04:48 Platelet Morphology NORMAL APPEARANCE (NORMAL) 01/23/22 04:48 RBC Morph Micro Appear NORMAL APPEARANCE (NORMAL) 01/23/22 04:48 ESR 78 mm/Hr (0-20) H 01/27/22 05:12 Absolute Retic 0.031 10^6/uL (0.020-0.110) 01/24/22 04:59 Sodium 135 mmol/L (135-145) 01/27/22 05:12 Potassium 3.9 mmol/L (3.5-5.0) 01/27/22 05:12 Chloride 99 mmol/L (101-111) L 01/27/22 05:12 Carbon Dioxide 26 mmol/L (21-32) 01/27/22 05:12 Anion Gap 10.0 (6-13) 01/27/22 05:12 BUN 13 mg/dL (6-20) 01/27/22 05:12 Creatinine 0.7 mg/dL (0.6-1.2) 01/27/22 05:12 Estimated GFR (MDRD) 113 (>89) 01/27/22 05:12 Glucose 160 mg/dL (70-100) H 01/27/22 05:12 POC Whole Bld Glucose 139 mg/dL (70 - 100) H 01/27/22 07:48 Estimat Average Glucose 169 mg/dL (70-100) H 01/23/22 04:48 Hemoglobin A1c % 7.5 % (4.27-6.07) H 01/23/22 04:48 Lactic Acid 1.1 mmol/L (0.5-2.2) 01/22/22 18:58 Calcium 8.6 mg/dL (8.5-10.3) 01/27/22 05:12 Iron 26 ug/dL (45-182) L 01/24/22 04:59 TIBC 211 ug/dL (250-450) L 01/24/22 04:59 % Saturation 12 % (20-50) L 01/24/22 04:59 Transferrin 151 mg/dL (180-329) L 01/24/22 04:59 Ferritin 244.6 ng/mL (23.9-336.2) 01/24/22 04:59 Total Bilirubin 0.6 mg/dL (0.2-1.0) 01/24/22 04:59 AST 30 IU/L (10-42) 01/24/22 04:59 ALT 39 IU/L (10-60) 01/24/22 04:59 Alkaline Phosphatase 85 IU/L (42-121) 01/24/22 04:59 Lactate Dehydrogenase 130 IU/L (91-225) 01/24/22 04:59 C-Reactive Protein 2.0 mg/dL (0-1.0) H 01/27/22 05:12 Total Protein 6.2 g/dL (6.7-8.2) L 01/24/22 04:59 Albumin 2.6 g/dL (3.2-5.5) L 01/24/22 04:59 Globulin 3.6 g/dL (2.1-4.2) 01/24/22 04:59 Albumin/Globulin Ratio 0.7 (1.0-2.2) L 01/24/22 04:59 Vitamin B12 406 pg/mL (180-914) 01/24/22 04:59 Nasal Adenovirus (PCR) NOT DETECTED 01/22/22 19:17 Nasal B. parapertussis DNA (PCR) NOT DETECTED 01/22/22 19:17 Nasal Coronavir 229E PCR NOT DETECTED 01/22/22 19:17 Nasal Coronavir HKU1 PCR NOT DETECTED 01/22/22 19:17 Nasal Coronavir NL63 PCR NOT DETECTED 01/22/22 19:17 Nasal Coronavir OC43 PCR NOT DETECTED 01/22/22 19:17 Nasal Enterovir/Rhinovir PCR NOT DETECTED 01/22/22 19:17 Nasal Influenza B PCR NOT DETECTED 01/22/22 19:17 Nasal Influenza A PCR NOT DETECTED 01/22/22 19:17 Nasal Parainfluen 1 PCR NOT DETECTED 01/22/22 19:17 Nasal Parainfluen 2 PCR NOT DETECTED 01/22/22 19:17 Nasal Parainfluen 3 PCR NOT DETECTED 01/22/22 19:17 Nasal Parainfluen 4 PCR NOT DETECTED 01/22/22 19:17 Nasal RSV (PCR) NOT DETECTED 01/22/22 19:17 Nasal B.pertussis DNA PCR NOT DETECTED 01/22/22 19:17 Nasal C.pneumoniae (PCR) NOT DETECTED 01/22/22 19:17 Jerson Human Metapneumo PCR NOT DETECTED 01/22/22 19:17 Nasal M.pneumoniae (PCR) NOT DETECTED 01/22/22 19:17 Nasal SARS-CoV-2 (PCR) NOT DETECTED 01/22/22 19:17 Last Dose Date Not Reportable 01/25/22 17:55 Last Dose Time Not Reportable 01/25/22 17:55 Vancomycin Trough 12.2 ug/mL (10.0-20.0) 01/25/22 17:55 - Procedures Procedures: Procedures EXCISION OF ASCENDING COLON, ENDO (08/05/21) EXCISION OF DESCENDING COLON, ENDO (08/05/21) EXCISION OF RECTUM, ENDO (08/05/21) EXCISION OF SIGMOID COLON, ENDO (08/05/21) EXCISION OF TRANSVERSE COLON, ENDO (08/05/21) ABX Reporting Has patient been on IV antibiotics over the past 48 hours?: Yes Current Medications - Current Medications Current Medications: Active Medications Hydrocodone Bitart/Acetaminophen (Hydrocod/Acetam 10 Mg/325 Mg Tablet) 1 tab PO Q4HR PRN PRN Reason: Pain 8 to 10 Last Admin: 01/27/22 01:03 Dose: 1 tab Atorvastatin Calcium (Atorvastatin 10 Mg Tablet) 20 mg PO DAILY [facility] Last Admin: 01/27/22 08:36 Dose: 20 mg Enoxaparin Sodium (Enoxaparin 40 Mg/0.4 Ml Syringe) 40 mg SUBQ DAILY [facility] Last Admin: 01/27/22 08:35 Dose: 40 mg Ferrous Gluconate (Ferrous Gluconate 324 Mg Tablet) 324 mg PO DAILYWM [facility] Last Admin: 01/27/22 08:34 Dose: 324 mg Ampicillin Sodium/Sulbactam (Sodium 3 gm/ Sodium Chloride) 100 mls @ 200 mls/hr IV Q6HR [facility] Last Infusion: 01/27/22 06:54 Dose: Infused Vancomycin HCl 1 gm/Vancomycin HCl 250 mg/ Sodium Chloride 250 mls @ 167 mls/hr IV Q12H [facility] Last Infusion: 01/27/22 08:26 Dose: Infused Sodium Chloride (Normal Saline 0.9%) 250 mls @ 20 mls/hr IV Q24H PRN PRN Reason: TKO RATE Ibuprofen (Ibuprofen 400 Mg Tablet) 400 mg PO Q6HR PRN PRN Reason: PAIN Last Admin: 01/25/22 17:51 Dose: 400 mg Insulin Aspart (Insulin Aspart 300 Unit/3 Ml Pen) 2 - 10 unit SUBQ 0800,1200,1700,2100 [facility]; Protocol Last Admin: 01/27/22 07:57 Dose: Not Given Insulin Glargine (Insulin Glargine 300 Unit/3 Ml Pen) 34 unit SUBQ QPM [facility] Last Admin: 01/26/22 21:40 Dose: 34 unit Lisinopril (Lisinopril 5 Mg Tablet) 2.5 mg PO DAILY [facility] Last Admin: 01/27/22 08:34 Dose: 2.5 mg Pantoprazole Sodium (Pantoprazole 40 Mg Tablet) 40 mg PO QDAC [facility] Last Admin: 01/27/22 06:22 Dose: 40 mg Polyethylene Glycol (Polyethylene Glycol 3350 17 Gm Packet) 17 gm PO DAILY [facility] Last Admin: 01/27/22 08:41 Dose: Not Given Saccharomyces Boulardii (Saccharomyces Boulardii 250 Mg Capsule) 250 mg PO BIDWM [facility] Last Admin: 01/27/22 08:35 Dose: 250 mg Sodium Chloride (Sodium Chloride Flush 0.9% 10 Ml Syringe) 10 ml IVP PRN PRN PRN Reason: NEEDED PER PROVIDER ORDERS Sodium Chloride (Sodium Chloride Flush 0.9% 10 Ml Syringe) 10 ml IVP 0100,0900,1700 [facility] Last Admin: 01/27/22 08:35 Dose: Not Given Metformin HCl 500 mg PO DAILY 05/10/14 Atorvastatin [Lipitor] 20 mg PO DAILY 08/05/21 Insulin Glargine [Lantus Solostar] 34 units SUBQ QPM 08/05/21 Lisinopril [Zestril] 2.5 mg PO DAILY 01/23/22 Multivit-Min/FA/Lycopen/Lutein [Centrum Silver Men Tablet] 1 each PO DAILY 01/23/22
[2022-01-27 18:21] LABS: VANCOMYCIN,TROUGH 12.7 ug/mL (10.0-20.0)
[2022-01-27] MEDS: INSULIN GLARGINE 300 UNIT/3 ML PEN SUBQ SCH (20:31)
[2022-01-27] MEDS ORDERED: VANCOMYCIN INJ 500 MG in SODIUM CHLORIDE 0.9% MINIBAG 100 ML IV ONE (21:00)
[2022-01-28] MEDS: HYDROcod/ACETAM 10 MG/325 MG TABLET PO PRN ×4 (00:10→22:59)
[2022-01-28] MEDS: AMPICILLIN/SULBACTAM 3 GM in SODIUM CHLORIDE 0.9% MINIBAG 100 ML IV SCH ×2 (00:38→06:27)
[2022-01-28] MEDS: SODIUM CHLORIDE FLUSH 0.9% 10 ML SYRINGE IVP SCH ×3 (00:38→18:00)
[2022-01-28 06:16] LABS: BASOPHILS % (AUTO) 0.3 %; EOSINOPHILS # (AUTO) 0.2 10^3/uL (0.0-0.7); EOSINOPHILS % (AUTO) 1.2 %; HCT - HEMATOCRIT 33.8 % (42.0-52.0); HGB - HEMOGLOBIN 11.3 g/dL (14.0-18.0); LYMPHOCYTES # (AUTO) 1.9 10^3/uL (1.5-3.5); LYMPHOCYTES % (AUTO) 13.6 %; MEAN CORPUSCULAR HEMOGLOBIN 29.8 pg (27.0-31.0); MEAN CORPUSCULAR HGB CONC 33.4 g/dL (32.0-36.0); MEAN CORPUSCULAR VOLUME 89.2 fL (80.0-94.0); MEAN PLATELET VOLUME 8.8 fL (7.4-11.4); MONOCYTES # (AUTO) 1.2 10^3/uL (0.0-1.0); MONOCYTES % (AUTO) 8.7 %; NEUTROPHILS # (AUTO) 10.4 10^3/uL (1.5-6.6); NEUTROPHILS % (AUTO) 75.6 %; PLT - PLATELET COUNT 380 10^3/uL (130-450); RED BLOOD COUNT 3.79 10^6/uL (4.70-6.10); RED CELL DISTRIBUTION WIDTH 12.9 % (12.0-15.0); WHITE BLOOD COUNT 13.8 x10^3/uL (4.8-10.8)
[2022-01-28 06:23] LABS: CALCIUM 8.6 mg/dL (8.5-10.3); CREATININE 0.7 mg/dL (0.6-1.2)
[2022-01-28] MEDS: PANTOPRAZOLE 40 MG TABLET PO SCH (06:28)
[2022-01-28] MEDS: VANCOMYCIN INJ 1 GM, VANCOMYCIN INJ 250 MG in SODIUM CHLORIDE 0.9% 250 ML IV SCH (07:01)
[2022-01-28] MEDS: INSULIN ASPART 300 UNIT/3 ML PEN SUBQ SCH ×4 (07:45→20:33)
[2022-01-28] MEDS: SACCHAROMYCES BOULARDII 250 MG CAPSULE PO SCH ×2 (08:35→18:00)
[2022-01-28] MEDS: lisinopriL 5 MG TABLET PO SCH (08:35)
[2022-01-28] MEDS: ENOXAPARIN 40 MG/0.4 ML SYRINGE SUBQ SCH (08:35)
[2022-01-28] MEDS: FERROUS GLUCONATE 324 MG TABLET PO SCH (08:35)
[2022-01-28] MEDS: polyethylene glycoL 3350 17 GM PACKET PO SCH (08:39)
[2022-01-28] MEDS: ATORVASTATIN 10 MG TABLET PO SCH (08:40)
--- NOTE | 2022-01-28 13:08 | PROVIDER PROGRESS NOTE ---
Subjective - Prog Note Date Prog Note Date: 01/28/22 - Subjective Subjective: He feels like his left leg is more swollen just below the knee. He has had decreased range of motion in that leg because of the swelling. It is still painful. The redness has not improved and has progressed over the past 1 to 2 days. He is concerned given he was initially improving. Current Medications - Current Medications Current Medications: Active Medications Hydrocodone Bitart/Acetaminophen (Hydrocod/Acetam 10 Mg/325 Mg Tablet) 1 tab PO Q4HR PRN PRN Reason: Pain 8 to 10 Last Admin: 01/28/22 08:39 Dose: 1 tab Atorvastatin Calcium (Atorvastatin 10 Mg Tablet) 20 mg PO DAILY [facility] Last Admin: 01/28/22 08:40 Dose: 20 mg Enoxaparin Sodium (Enoxaparin 40 Mg/0.4 Ml Syringe) 40 mg SUBQ DAILY [facility] Last Admin: 01/28/22 08:35 Dose: 40 mg Ferrous Gluconate (Ferrous Gluconate 324 Mg Tablet) 324 mg PO DAILYWM [facility] Last Admin: 01/28/22 08:35 Dose: 324 mg Vancomycin HCl 1 gm/Vancomycin HCl 250 mg/ Sodium Chloride 250 mls @ 167 mls/hr IV Q12H [facility] Last Infusion: 01/28/22 08:35 Dose: Infused Sodium Chloride (Normal Saline 0.9%) 250 mls @ 20 mls/hr IV Q24H PRN PRN Reason: TKO RATE Cefepime HCl 2 gm/ Sodium (Chloride) 100 mls @ 200 mls/hr IV BID [facility] Ibuprofen (Ibuprofen 400 Mg Tablet) 400 mg PO Q6HR PRN PRN Reason: PAIN Last Admin: 01/25/22 17:51 Dose: 400 mg Insulin Aspart (Insulin Aspart 300 Unit/3 Ml Pen) 2 - 10 unit SUBQ 0800,1200,1700,2100 [facility]; Protocol Last Admin: 01/28/22 11:25 Dose: Not Given Insulin Glargine (Insulin Glargine 300 Unit/3 Ml Pen) 34 unit SUBQ QPM [facility] Last Admin: 01/27/22 20:31 Dose: 34 unit Lisinopril (Lisinopril 5 Mg Tablet) 2.5 mg PO DAILY [facility] Last Admin: 01/28/22 08:35 Dose: 2.5 mg Pantoprazole Sodium (Pantoprazole 40 Mg Tablet) 40 mg PO QDAC [facility] Last Admin: 01/28/22 06:28 Dose: 40 mg Polyethylene Glycol (Polyethylene Glycol 3350 17 Gm Packet) 17 gm PO DAILY [facility] Last Admin: 01/28/22 08:39 Dose: Not Given Saccharomyces Boulardii (Saccharomyces Boulardii 250 Mg Capsule) 250 mg PO BIDWM [facility] Last Admin: 01/28/22 08:35 Dose: 250 mg Sodium Chloride (Sodium Chloride Flush 0.9% 10 Ml Syringe) 10 ml IVP PRN PRN PRN Reason: NEEDED PER PROVIDER ORDERS Sodium Chloride (Sodium Chloride Flush 0.9% 10 Ml Syringe) 10 ml IVP 0100,0900,1700 [facility] Last Admin: 01/28/22 08:40 Dose: Not Given Metformin HCl 500 mg PO DAILY 05/10/14 Atorvastatin [Lipitor] 20 mg PO DAILY 08/05/21 Insulin Glargine [Lantus Solostar] 34 units SUBQ QPM 08/05/21 Lisinopril [Zestril] 2.5 mg PO DAILY 01/23/22 Multivit-Min/FA/Lycopen/Lutein [Centrum Silver Men Tablet] 1 each PO DAILY 01/23/22 Objective - Vital Signs/Intake & Output Reviewed Vital Signs: Yes Vital Signs: Vital Signs x48h Temp Pulse Resp BP Pulse Ox 01/28/22 11:18 37.0 C 75 16 120/67 98 01/28/22 06:51 36.9 C 72 16 116/54 L 96 Intake & Output: Intake & Output 01/25/22 01/26/22 01/27/22 01/28/22 23:59 23:59 23:59 23:59 Intake Total 2370 1979 3010 1570 Balance 2370 1979 3010 1570 - Objective General Appearance: positive: No acute distress, Alert Eyes Bilateral: positive: Normal inspection, Conjunctivae nml, No scleral icterus ENT: positive: ENT inspection nml Respiratory: positive: No respiratory distress. negative: Wheezes, Rales Cardiovascular: positive: Regular rate & rhythm, No murmur. negative: Tachycardia Skin: positive: Other (There is still significant erythema inferior to the left knee down to mid m[place]. The erythema is predominantly anterior. No obvious fluctuance. It is warm to touch and tender.) Extremities: positive: Other (Decreased range of motion of the left knee but no obvious effusion or crepitus.) Neurologic/Psychiatric: negative: Disoriented to person, Disoriented to place - Lab Results Fish Bones: 01/28/22 06:04 01/28/22 06:04 Other Labs: Lab Results x24hrs 01/28/22 01/28/22 01/28/22 Range/Units 11:00 07:37 06:04 WBC (4.8-10.8) x10^3/uL RBC (4.70-6.10) 10^6/uL Hgb (14.0-18.0) g/dL Hct (42.0-52.0) % MCV (80.0-94.0) fL MCH (27.0-31.0) pg MCHC (32.0-36.0) g/dL RDW (12.0-15.0) % Plt Count (130-450) 10^3/uL MPV (7.4-11.4) fL Neut # (Auto) (1.5-6.6) 10^3/uL Lymph # (Auto) (1.5-3.5) 10^3/uL Stevens # (Auto) (0.0-1.0) 10^3/uL Eos # (Auto) (0.0-0.7) 10^3/uL Baso # (Auto) (0.0-0.1) 10^3/uL Absolute Nucleated RBC x10^3/uL Nucleated RBC % /100WBC ESR 73 H (0-20) mm/Hr Sodium (135-145) mmol/L Potassium (3.5-5.0) mmol/L Chloride (101-111) mmol/L Carbon Dioxide (21-32) mmol/L Anion Gap (6-13) BUN (6-20) mg/dL Creatinine (0.6-1.2) mg/dL Estimated GFR (MDRD) (>89) Glucose (70-100) mg/dL POC Whole Bld Glucose 122 H 91 (70 - 100) mg/dL Calcium (8.5-10.3) mg/dL Last Dose Date Last Dose Time Vancomycin Trough (10.0-20.0) ug/mL 01/28/22 01/28/22 01/27/22 Range/Units 06:04 06:04 20:24 WBC 13.8 H (4.8-10.8) x10^3/uL RBC 3.79 L (4.70-6.10) 10^6/uL Hgb 11.3 L (14.0-18.0) g/dL Hct 33.8 L (42.0-52.0) % MCV 89.2 (80.0-94.0) fL MCH 29.8 (27.0-31.0) pg MCHC 33.4 (32.0-36.0) g/dL RDW 12.9 (12.0-15.0) % Plt Count 380 (130-450) 10^3/uL MPV 8.8 (7.4-11.4) fL Neut # (Auto) 10.4 H (1.5-6.6) 10^3/uL Lymph # (Auto) 1.9 (1.5-3.5) 10^3/uL Stevens # (Auto) 1.2 H (0.0-1.0) 10^3/uL Eos # (Auto) 0.2 (0.0-0.7) 10^3/uL Baso # (Auto) 0.0 (0.0-0.1) 10^3/uL Absolute Nucleated RBC 0.00 x10^3/uL Nucleated RBC % 0.0 /100WBC ESR (0-20) mm/Hr Sodium 135 (135-145) mmol/L Potassium 4.0 (3.5-5.0) mmol/L Chloride 101 (101-111) mmol/L Carbon Dioxide 27 (21-32) mmol/L Anion Gap 7.0 (6-13) BUN 12 (6-20) mg/dL Creatinine 0.7 (0.6-1.2) mg/dL Estimated GFR (MDRD) 113 (>89) Glucose 95 (70-100) mg/dL POC Whole Bld Glucose 227 H (70 - 100) mg/dL Calcium 8.6 (8.5-10.3) mg/dL Last Dose Date Last Dose Time Vancomycin Trough (10.0-20.0) ug/mL 01/27/22 01/27/22 Range/Units 18:00 16:27 WBC (4.8-10.8) x10^3/uL RBC (4.70-6.10) 10^6/uL Hgb (14.0-18.0) g/dL Hct (42.0-52.0) % MCV (80.0-94.0) fL MCH (27.0-31.0) pg MCHC (32.0-36.0) g/dL RDW (12.0-15.0) % Plt Count (130-450) 10^3/uL MPV (7.4-11.4) fL Neut # (Auto) (1.5-6.6) 10^3/uL Lymph # (Auto) (1.5-3.5) 10^3/uL Stevens # (Auto) (0.0-1.0) 10^3/uL Eos # (Auto) (0.0-0.7) 10^3/uL Baso # (Auto) (0.0-0.1) 10^3/uL Absolute Nucleated RBC x10^3/uL Nucleated RBC % /100WBC ESR (0-20) mm/Hr Sodium (135-145) mmol/L Potassium (3.5-5.0) mmol/L Chloride (101-111) mmol/L Carbon Dioxide (21-32) mmol/L Anion Gap (6-13) BUN (6-20) mg/dL Creatinine (0.6-1.2) mg/dL Estimated GFR (MDRD) (>89) Glucose (70-100) mg/dL POC Whole Bld Glucose 187 H (70 - 100) mg/dL Calcium (8.5-10.3) mg/dL Last Dose Date Not Reportable Last Dose Time Not Reportable Vancomycin Trough 12.7 (10.0-20.0) ug/mL ABX Reporting Has patient been on IV antibiotics over the past 48 hours?: Yes Assessment/Plan - Problem List (1) Cellulitis of left lower leg Impression: There has been progression of the erythema and the edema of the left lower extremity. There is no obvious effusion to suggest septic joint. Suspect this is likely a cellulitis. X-ray showed no effusion and CT on admission was consistent with cellulitis. Duplex was negative for DVT. Given he is a diabetic, we will switch Unasyn to cefepime as we are not covering for Pseudomonas. We will continue vancomycin. We discussed that if he does not improve with this change of antibiotics we will consider repeat imaging to ensure there has not been interval development of an abscess. Continue with daily CBC. Trend CRP. (2) Diabetes mellitus Impression: His blood glucose has been controlled on his current dose of Lantus. Continue sliding scale. Carb controlled diet. 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
[2022-01-28] MEDS: VANCOMYCIN INJ 1 GM, VANCOMYCIN INJ 500 MG in SODIUM CHLORIDE 0.9% 500 ML IV SCH (18:00)
[2022-01-28] MEDS: SODIUM CHLORIDE 0.9% 250 ML IV PRN (18:01)
[2022-01-28] MEDS: CEFEPIME 2 GM in SODIUM CHLORIDE 0.9% MINIBAG 100 ML IV SCH (20:24)
[2022-01-28] MEDS: INSULIN GLARGINE 300 UNIT/3 ML PEN SUBQ SCH (20:34)
[2022-01-29] MEDS: SODIUM CHLORIDE FLUSH 0.9% 10 ML SYRINGE IVP SCH ×3 (00:46→21:06)
[2022-01-29] MEDS: HYDROcod/ACETAM 10 MG/325 MG TABLET PO PRN ×3 (04:41→19:03)
[2022-01-29 05:44] LABS: BASOPHILS # (AUTO) 0.1 10^3/uL (0.0-0.1); BASOPHILS % (AUTO) 0.5 %; EOSINOPHILS # (AUTO) 0.2 10^3/uL (0.0-0.7); EOSINOPHILS % (AUTO) 1.6 %; HCT - HEMATOCRIT 32.6 % (42.0-52.0); HGB - HEMOGLOBIN 10.9 g/dL (14.0-18.0); LYMPHOCYTES # (AUTO) 2.1 10^3/uL (1.5-3.5); LYMPHOCYTES % (AUTO) 16.5 %; MEAN CORPUSCULAR HEMOGLOBIN 29.8 pg (27.0-31.0); MEAN CORPUSCULAR HGB CONC 33.4 g/dL (32.0-36.0); MEAN CORPUSCULAR VOLUME 89.1 fL (80.0-94.0); MEAN PLATELET VOLUME 8.9 fL (7.4-11.4); MONOCYTES # (AUTO) 1.2 10^3/uL (0.0-1.0); MONOCYTES % (AUTO) 9.5 %; NEUTROPHILS # (AUTO) 9.2 10^3/uL (1.5-6.6); NEUTROPHILS % (AUTO) 71.5 %; PLT - PLATELET COUNT 373 10^3/uL (130-450); RED BLOOD COUNT 3.66 10^6/uL (4.70-6.10); RED CELL DISTRIBUTION WIDTH 12.9 % (12.0-15.0); WHITE BLOOD COUNT 12.8 x10^3/uL (4.8-10.8)
[2022-01-29 05:49] LABS: CALCIUM 8.9 mg/dL (8.5-10.3); CREATININE 0.6 mg/dL (0.6-1.2); POTASSIUM 4.2 mmol/L (3.5-5.0)
[2022-01-29] MEDS: VANCOMYCIN INJ 1 GM, VANCOMYCIN INJ 500 MG in SODIUM CHLORIDE 0.9% 500 ML IV SCH ×2 (06:48→19:03)
[2022-01-29] MEDS: PANTOPRAZOLE 40 MG TABLET PO SCH (06:50)
[2022-01-29] MEDS: INSULIN ASPART 300 UNIT/3 ML PEN SUBQ SCH ×4 (08:09→21:08)
[2022-01-29] MEDS: polyethylene glycoL 3350 17 GM PACKET PO SCH (09:16)
--- NOTE | 2022-01-29 09:20 | PROVIDER PROGRESS NOTE ---
Subjective - Prog Note Date Prog Note Date: 01/29/22 - Subjective Subjective: Still complains of leg pain and erythema. Continues to have decreased range of motion of the left knee. Does not feel it is worse today but not much better either. Current Medications - Current Medications Current Medications: Active Medications Hydrocodone Bitart/Acetaminophen (Hydrocod/Acetam 10 Mg/325 Mg Tablet) 1 tab PO Q4HR PRN PRN Reason: Pain 8 to 10 Last Admin: 01/29/22 04:41 Dose: 1 tab Atorvastatin Calcium (Atorvastatin 10 Mg Tablet) 20 mg PO DAILY [facility] Last Admin: 01/28/22 08:40 Dose: 20 mg Enoxaparin Sodium (Enoxaparin 40 Mg/0.4 Ml Syringe) 40 mg SUBQ DAILY [facility] Last Admin: 01/28/22 08:35 Dose: 40 mg Sodium Chloride (Normal Saline 0.9%) 250 mls @ 20 mls/hr IV Q24H PRN PRN Reason: TKO RATE Last Infusion: 01/29/22 07:10 Dose: 0 mls/hr Cefepime HCl 2 gm/ Sodium (Chloride) 100 mls @ 200 mls/hr IV BID [facility] Last Infusion: 01/28/22 21:33 Dose: Infused Vancomycin HCl 1 gm/Vancomycin HCl 500 mg/ Sodium Chloride 500 mls @ 250 mls/hr IV Q12H [facility] Last Admin: 01/29/22 06:48 Dose: 250 mls/hr Ibuprofen (Ibuprofen 400 Mg Tablet) 400 mg PO Q6HR PRN PRN Reason: PAIN Last Admin: 01/25/22 17:51 Dose: 400 mg Insulin Aspart (Insulin Aspart 300 Unit/3 Ml Pen) 3 - 11 unit SUBQ 0800,1200,1700,2100 [facility]; Protocol Last Admin: 01/29/22 08:09 Dose: Not Given Insulin Glargine (Insulin Glargine 300 Unit/3 Ml Pen) 34 unit SUBQ QPM [facility] Last Admin: 01/28/22 20:34 Dose: 34 unit Lisinopril (Lisinopril 5 Mg Tablet) 2.5 mg PO DAILY [facility] Last Admin: 01/28/22 08:35 Dose: 2.5 mg Pantoprazole Sodium (Pantoprazole 40 Mg Tablet) 40 mg PO QDAC [facility] Last Admin: 01/29/22 06:50 Dose: 40 mg Polyethylene Glycol (Polyethylene Glycol 3350 17 Gm Packet) 17 gm PO DAILY [facility] Last Admin: 01/28/22 08:39 Dose: Not Given Saccharomyces Boulardii (Saccharomyces Boulardii 250 Mg Capsule) 250 mg PO BIDWM [facility] Last Admin: 01/28/22 18:00 Dose: 250 mg Sodium Chloride (Sodium Chloride Flush 0.9% 10 Ml Syringe) 10 ml IVP PRN PRN PRN Reason: NEEDED PER PROVIDER ORDERS Sodium Chloride (Sodium Chloride Flush 0.9% 10 Ml Syringe) 10 ml IVP 0100,0900,1700 [facility] Last Admin: 01/29/22 00:46 Dose: Not Given Metformin HCl 500 mg PO DAILY 05/10/14 Atorvastatin [Lipitor] 20 mg PO DAILY 08/05/21 Insulin Glargine [Lantus Solostar] 34 units SUBQ QPM 08/05/21 Lisinopril [Zestril] 2.5 mg PO DAILY 01/23/22 Multivit-Min/FA/Lycopen/Lutein [Centrum Silver Men Tablet] 1 each PO DAILY 01/23/22 Objective - Vital Signs/Intake & Output Reviewed Vital Signs: Yes Vital Signs: Vital Signs x48h Temp Pulse Resp BP Pulse Ox 01/29/22 06:55 36.6 C 62 16 120/60 100 01/29/22 04:38 37.1 C 83 16 142/81 H 99 Intake & Output: Intake & Output 01/26/22 01/27/22 01/28/22 01/29/22 23:59 23:59 23:59 23:59 Intake Total 1979 3010 2813.333 192 Balance 1979 3010 2813.333 192 - Objective General Appearance: positive: No acute distress, Alert Eyes Bilateral: positive: Normal inspection, Conjunctivae nml ENT: positive: ENT inspection nml Respiratory: positive: No respiratory distress Cardiovascular: positive: Regular rate & rhythm. negative: Tachycardia Skin: positive: Other (The area of erythema inferior to the left knee to mid mccollum has not really decreased in redness or size. 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 Continues to have decreased range of motion of the left knee. No obvious effusion.) Neurologic/Psychiatric: negative: Disoriented to person, Disoriented to place - Lab Results Fish Bones: 01/29/22 05:27 01/29/22 05:27 Other Labs: Lab Results x24hrs 01/29/22 01/29/22 01/29/22 Range/Units 08:05 05:27 05:27 WBC 12.8 H (4.8-10.8) x10^3/uL RBC 3.66 L (4.70-6.10) 10^6/uL Hgb 10.9 L (14.0-18.0) g/dL Hct 32.6 L (42.0-52.0) % MCV 89.1 (80.0-94.0) fL MCH 29.8 (27.0-31.0) pg MCHC 33.4 (32.0-36.0) g/dL RDW 12.9 (12.0-15.0) % Plt Count 373 (130-450) 10^3/uL MPV 8.9 (7.4-11.4) fL Neut # (Auto) 9.2 H (1.5-6.6) 10^3/uL Lymph # (Auto) 2.1 (1.5-3.5) 10^3/uL [place] # (Auto) 1.2 H (0.0-1.0) 10^3/uL Eos # (Auto) 0.2 (0.0-0.7) 10^3/uL Baso # (Auto) 0.1 (0.0-0.1) 10^3/uL Absolute Nucleated RBC 0.00 x10^3/uL Nucleated RBC % 0.0 /100WBC Sodium 140 (135-145) mmol/L Potassium 4.2 (3.5-5.0) mmol/L Chloride 104 (101-111) mmol/L Carbon Dioxide 26 (21-32) mmol/L Anion Gap 10.0 (6-13) BUN 15 (6-20) mg/dL Creatinine 0.6 (0.6-1.2) mg/dL Estimated GFR (MDRD) 135 (>89) Glucose 111 H (70-100) mg/dL POC Whole Bld Glucose 97 (70 - 100) mg/dL Calcium 8.9 (8.5-10.3) mg/dL 01/28/22 01/28/22 01/28/22 Range/Units 20:31 16:35 11:00 WBC (4.8-10.8) x10^3/uL RBC (4.70-6.10) 10^6/uL Hgb (14.0-18.0) g/dL Hct (42.0-52.0) % MCV (80.0-94.0) fL MCH (27.0-31.0) pg MCHC (32.0-36.0) g/dL RDW (12.0-15.0) % Plt Count (130-450) 10^3/uL MPV (7.4-11.4) fL Neut # (Auto) (1.5-6.6) 10^3/uL Lymph # (Auto) (1.5-3.5) 10^3/uL [place] # (Auto) (0.0-1.0) 10^3/uL Eos # (Auto) (0.0-0.7) 10^3/uL Baso # (Auto) (0.0-0.1) 10^3/uL Absolute Nucleated RBC x10^3/uL Nucleated RBC % /100WBC Sodium (135-145) mmol/L Potassium (3.5-5.0) mmol/L Chloride (101-111) mmol/L Carbon Dioxide (21-32) mmol/L Anion Gap (6-13) BUN (6-20) mg/dL Creatinine (0.6-1.2) mg/dL Estimated GFR (MDRD) (>89) Glucose (70-100) mg/dL POC Whole Bld Glucose 242 H 127 H 122 H (70 - 100) mg/dL Calcium (8.5-10.3) mg/dL ABX Reporting Has patient been on IV antibiotics over the past 48 hours?: Yes Assessment/Plan - Problem List (1) Cellulitis of left lower leg Impression: He has not made much progress over the past 24 hours but he has only received 1 dose of the cefepime which was began yesterday evening. Fortunately his cellulitis is not progressing. We switch his cefepime yesterday because he is a diabetic and concern for potential Pseudomonas infection. We will keep him on vancomycin and cefepime today. If there is no improvement over the next 24 hours we will repeat a CT of the left lower extremity tomorrow. Prior CT was consistent with cellulitis without an obvious abscess. Duplex has been negative for DVT. Continue daily CBC. (2) Diabetes mellitus Impression: His blood glucose is well controlled on the current insulin regimen which we will continue. 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
[2022-01-29] MEDS: SACCHAROMYCES BOULARDII 250 MG CAPSULE PO SCH ×2 (09:26→17:00)
[2022-01-29] MEDS: lisinopriL 5 MG TABLET PO SCH (09:26)
[2022-01-29] MEDS: ATORVASTATIN 10 MG TABLET PO SCH (09:27)
[2022-01-29] MEDS: ENOXAPARIN 40 MG/0.4 ML SYRINGE SUBQ SCH (09:27)
[2022-01-29] MEDS: CEFEPIME 2 GM in SODIUM CHLORIDE 0.9% MINIBAG 100 ML IV SCH ×2 (09:27→21:35)
[2022-01-29] MEDS: SODIUM CHLORIDE 0.9% 250 ML IV PRN (14:06)
[2022-01-29] MEDS: INSULIN GLARGINE 300 UNIT/3 ML PEN SUBQ SCH (21:11)
[2022-01-30] MEDS: SODIUM CHLORIDE FLUSH 0.9% 10 ML SYRINGE IVP SCH ×3 (00:05→15:41)
[2022-01-30] MEDS: HYDROcod/ACETAM 10 MG/325 MG TABLET PO PRN ×3 (00:07→21:38)
[2022-01-30 05:09] LABS: BASOPHILS # (AUTO) 0.1 10^3/uL (0.0-0.1); BASOPHILS % (AUTO) 0.4 %; EOSINOPHILS # (AUTO) 0.2 10^3/uL (0.0-0.7); EOSINOPHILS % (AUTO) 1.5 %; HCT - HEMATOCRIT 31.9 % (42.0-52.0); HGB - HEMOGLOBIN 10.5 g/dL (14.0-18.0); LYMPHOCYTES # (AUTO) 1.9 10^3/uL (1.5-3.5); LYMPHOCYTES % (AUTO) 16.3 %; MEAN CORPUSCULAR HEMOGLOBIN 29.3 pg (27.0-31.0); MEAN CORPUSCULAR HGB CONC 32.9 g/dL (32.0-36.0); MEAN CORPUSCULAR VOLUME 89.1 fL (80.0-94.0); MEAN PLATELET VOLUME 8.9 fL (7.4-11.4); MONOCYTES # (AUTO) 1.3 10^3/uL (0.0-1.0); MONOCYTES % (AUTO) 10.8 %; NEUTROPHILS # (AUTO) 8.3 10^3/uL (1.5-6.6); NEUTROPHILS % (AUTO) 70.7 %; PLT - PLATELET COUNT 391 10^3/uL (130-450); RED BLOOD COUNT 3.58 10^6/uL (4.70-6.10); RED CELL DISTRIBUTION WIDTH 12.9 % (12.0-15.0); WHITE BLOOD COUNT 11.8 x10^3/uL (4.8-10.8)
[2022-01-30 05:18] LABS: CALCIUM 8.4 mg/dL (8.5-10.3); CREATININE 0.7 mg/dL (0.6-1.2); POTASSIUM 3.9 mmol/L (3.5-5.0)
[2022-01-30] MEDS: PANTOPRAZOLE 40 MG TABLET PO SCH (06:48)
[2022-01-30] MEDS: VANCOMYCIN INJ 1 GM, VANCOMYCIN INJ 500 MG in SODIUM CHLORIDE 0.9% 500 ML IV SCH ×2 (06:49→18:27)
[2022-01-30] MEDS: SACCHAROMYCES BOULARDII 250 MG CAPSULE PO SCH ×2 (09:55→17:31)
[2022-01-30] MEDS: polyethylene glycoL 3350 17 GM PACKET PO SCH (09:55)
[2022-01-30] MEDS: ENOXAPARIN 40 MG/0.4 ML SYRINGE SUBQ SCH (09:55)
[2022-01-30] MEDS: lisinopriL 5 MG TABLET PO SCH (09:55)
[2022-01-30] MEDS: INSULIN ASPART 300 UNIT/3 ML PEN SUBQ SCH ×4 (09:56→21:29)
[2022-01-30] MEDS: CEFEPIME 2 GM in SODIUM CHLORIDE 0.9% MINIBAG 100 ML IV SCH ×2 (09:56→21:30)
[2022-01-30] MEDS: ATORVASTATIN 10 MG TABLET PO SCH (09:59)
[2022-01-30] MEDS ORDERED: IOVERSOL 320 100 ML VIAL IVP ONE ×2 (11:20→21:14)
--- NOTE | 2022-01-30 11:41 | PROVIDER PROGRESS NOTE ---
Subjective - Prog Note Date Prog Note Date: 01/30/22 - Subjective Subjective: He feels like his leg may be a little improved today. Still has decreased range of motion. Current Medications - Current Medications Current Medications: Active Medications Hydrocodone Bitart/Acetaminophen (Hydrocod/Acetam 10 Mg/325 Mg Tablet) 1 tab PO Q4HR PRN PRN Reason: Pain 8 to 10 Last Admin: 01/30/22 09:55 Dose: 1 tab Atorvastatin Calcium (Atorvastatin 10 Mg Tablet) 20 mg PO DAILY [facility] Last Admin: 01/30/22 09:59 Dose: 20 mg Enoxaparin Sodium (Enoxaparin 40 Mg/0.4 Ml Syringe) 40 mg SUBQ DAILY [facility] Last Admin: 01/30/22 09:55 Dose: 40 mg Sodium Chloride (Normal Saline 0.9%) 250 mls @ 20 mls/hr IV Q24H PRN PRN Reason: TKO RATE Last Infusion: 01/29/22 22:30 Dose: 20 mls/hr Cefepime HCl 2 gm/ Sodium (Chloride) 100 mls @ 200 mls/hr IV BID [facility] Last Infusion: 01/30/22 10:42 Dose: Infused Vancomycin HCl 1 gm/Vancomycin HCl 500 mg/ Sodium Chloride 500 mls @ 250 mls/hr IV Q12H [facility] Last Infusion: 01/30/22 09:56 Dose: Infused Ibuprofen (Ibuprofen 400 Mg Tablet) 400 mg PO Q6HR PRN PRN Reason: PAIN Last Admin: 01/25/22 17:51 Dose: 400 mg Insulin Aspart (Insulin Aspart 300 Unit/3 Ml Pen) 3 - 11 unit SUBQ 0800,1200,1700,2100 [facility]; Protocol Last Admin: 01/30/22 09:56 Dose: Not Given Insulin Glargine (Insulin Glargine 300 Unit/3 Ml Pen) 34 unit SUBQ QPM [facility] Last Admin: 01/29/22 21:11 Dose: 34 unit Lisinopril (Lisinopril 5 Mg Tablet) 2.5 mg PO DAILY [facility] Last Admin: 01/30/22 09:55 Dose: 2.5 mg Pantoprazole Sodium (Pantoprazole 40 Mg Tablet) 40 mg PO QDAC [facility] Last Admin: 01/30/22 06:48 Dose: 40 mg Polyethylene Glycol (Polyethylene Glycol 3350 17 Gm Packet) 17 gm PO DAILY [facility] Last Admin: 01/30/22 09:55 Dose: Not Given Saccharomyces Boulardii (Saccharomyces Boulardii 250 Mg Capsule) 250 mg PO BIDWM [facility] Last Admin: 01/30/22 09:55 Dose: 250 mg Sodium Chloride (Sodium Chloride Flush 0.9% 10 Ml Syringe) 10 ml IVP PRN PRN PRN Reason: NEEDED PER PROVIDER ORDERS Sodium Chloride (Sodium Chloride Flush 0.9% 10 Ml Syringe) 10 ml IVP 0100,0900,1700 [facility] Last Admin: 01/30/22 09:56 Dose: 10 ml Metformin HCl 500 mg PO DAILY 05/10/14 Atorvastatin [Lipitor] 20 mg PO DAILY 08/05/21 Insulin Glargine [Lantus Solostar] 34 units SUBQ QPM 08/05/21 Lisinopril [Zestril] 2.5 mg PO DAILY 01/23/22 Multivit-Min/FA/Lycopen/Lutein [Centrum Silver Men Tablet] 1 each PO DAILY 01/23/22 Objective - Vital Signs/Intake & Output Reviewed Vital Signs: Yes Vital Signs: Vital Signs x48h Temp Pulse Resp BP Pulse Ox 01/30/22 07:24 37.1 C 78 16 116/62 95 Intake & Output: Intake & Output 01/27/22 01/28/22 01/29/22 01/30/22 23:59 23:59 23:59 23:59 Intake Total 3010 2813.333 3856.000 1040 Balance 3010 2813.333 3856.000 1040 - Objective General Appearance: positive: No acute distress, Alert Eyes Bilateral: positive: Normal inspection, Conjunctivae nml ENT: positive: ENT inspection nml Neck: positive: Nml inspection Respiratory: positive: No respiratory distress Cardiovascular: positive: Regular rate & rhythm. negative: Tachycardia Skin: positive: Other (The area of erythema inferior to the left knee down to the mid mccollum appears slightly less erythematous today but has not decreased in size. It is still quite tender to palpation over the lateral aspect just inferior to the knee. The knee itself is not erythematous. He does have decreased ROM.) Extremities: positive: Pedal edema (+1 edema in the left lower extremity.) Neurologic/Psychiatric: negative: Disoriented to person, Disoriented to place - Lab Results Fish Bones: 01/30/22 05:00 01/30/22 05:00 Other Labs: Lab Results x24hrs 01/30/22 01/30/22 01/30/22 Range/Units 10:56 07:18 05:00 WBC (4.8-10.8) x10^3/uL RBC (4.70-6.10) 10^6/uL Hgb (14.0-18.0) g/dL Hct (42.0-52.0) % MCV (80.0-94.0) fL MCH (27.0-31.0) pg MCHC (32.0-36.0) g/dL RDW (12.0-15.0) % Plt Count (130-450) 10^3/uL MPV (7.4-11.4) fL Neut # (Auto) (1.5-6.6) 10^3/uL Lymph # (Auto) (1.5-3.5) 10^3/uL [place] # (Auto) (0.0-1.0) 10^3/uL Eos # (Auto) (0.0-0.7) 10^3/uL Baso # (Auto) (0.0-0.1) 10^3/uL Absolute Nucleated RBC x10^3/uL Nucleated RBC % /100WBC Sodium 132 L (135-145) mmol/L Potassium 3.9 (3.5-5.0) mmol/L Chloride 99 L (101-111) mmol/L Carbon Dioxide 25 (21-32) mmol/L Anion Gap 8.0 (6-13) BUN 16 (6-20) mg/dL Creatinine 0.7 (0.6-1.2) mg/dL Estimated GFR (MDRD) 113 (>89) Glucose 109 H (70-100) mg/dL POC Whole Bld Glucose 163 H 83 (70 - 100) mg/dL Calcium 8.4 L (8.5-10.3) mg/dL 01/30/22 01/29/22 01/29/22 Range/Units 05:00 20:33 16:39 WBC 11.8 H (4.8-10.8) x10^3/uL RBC 3.58 L (4.70-6.10) 10^6/uL Hgb 10.5 L (14.0-18.0) g/dL Hct 31.9 L (42.0-52.0) % MCV 89.1 (80.0-94.0) fL MCH 29.3 (27.0-31.0) pg MCHC 32.9 (32.0-36.0) g/dL RDW 12.9 (12.0-15.0) % Plt Count 391 (130-450) 10^3/uL MPV 8.9 (7.4-11.4) fL Neut # (Auto) 8.3 H (1.5-6.6) 10^3/uL Lymph # (Auto) 1.9 (1.5-3.5) 10^3/uL [place] # (Auto) 1.3 H (0.0-1.0) 10^3/uL Eos # (Auto) 0.2 (0.0-0.7) 10^3/uL Baso # (Auto) 0.1 (0.0-0.1) 10^3/uL Absolute Nucleated RBC 0.00 x10^3/uL Nucleated RBC % 0.0 /100WBC Sodium (135-145) mmol/L Potassium (3.5-5.0) mmol/L Chloride (101-111) mmol/L Carbon Dioxide (21-32) mmol/L Anion Gap (6-13) BUN (6-20) mg/dL Creatinine (0.6-1.2) mg/dL Estimated GFR (MDRD) (>89) Glucose (70-100) mg/dL POC Whole Bld Glucose 161 H 174 H (70 - 100) mg/dL Calcium (8.5-10.3) mg/dL ABX Reporting Has patient been on IV antibiotics over the past 48 hours?: Yes Assessment/Plan - Problem List (1) Cellulitis of left lower leg Impression: Although the leg appears slightly less erythematous and his white blood cell count is improving, it has not decreased in size and he is still quite tender. There is no obvious fluctuance. It is surprising that he has not had more significant improvement since hospitalization. Although he already had a CT of the left lower extremity, I will repeat this today to see if there is development of an abscess. We will continue with vancomycin and cefepime IV. Continue with daily CBC. (2) Diabetes mellitus Impression: Blood gucose is well controlled on the current insulin regimen. Continue carb controlled diet. 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
--- NOTE | 2022-01-30 13:19 | CT Report ---
PROCEDURE: LOWER EXTREMITY W - LT INDICATIONS: Worsening Cellulitis. Knee effusion. TECHNIQUE: After administration of contrast 1 mm axial sections acquired of the left lower leg, with coronal and sagittal reformats. For radiation dose reduction, the following was used: automated exposure contr ol, adjustment of mA and/or kV according to patient size. CONTRAST: IV CONTRAST: Optiray 320 ml: COMPARISON: Knee radiographs 01/26/2022, CT 01/22/2022 FINDINGS: Image quality: Excellent. Bones: No acute fracture or dislocation. No focal cortical destruction is seen to suggest osteomyeli tis. No suspicious intraosseous lesion. Soft tissues: Diffuse soft tissue edema is seen throughout the left lower leg. A confluent area of f luid without central enhancement is seen anteriorly at the level of the proximal tibial plateau measu ring up to 8.1 x 1.8 x 7.2 cm in greatest dimensions. Some peripheral enhancement is seen without wel l-defined margins. There is possible extension to the joint capsule along the lateral margin of the d istal patellar insertion with possible communication with the deep infrapatellar bursa. A small supra patellar joint effusion is present. No significant edema is seen within the deep intramuscular fascia . There is no soft tissue gas. Other sclerotic calcifications are seen peripancreatic vasculature. IMPRESSION: 1.Diffuse left lower extremity edema is consistent with cellulitis. Focal confluent fluid with periph eral enhancement in the subcutaneous tissues anterolateral to the proximal tibial plateau is suspicio us for a developing abscess. There is possible extension through the knee joint capsule with involvem ent of the deep infrapatellar bursa, and septic arthritis cannot be excluded. No focal osseous erosio n or cortical destruction is seen. Small knee effusion. 2.No soft tissue gas. No involvement of the deep intramuscular fascia. Reviewed by: Alexandr Craft MD on 01/30/2022 12:17 PM [facility] Approved by: Alexandr Craft MD on 01/30/2022 12:17 PM [facility] Station ID: [id number]
[2022-01-30] MEDS: SODIUM CHLORIDE 0.9% 250 ML IV PRN (15:40)
--- NOTE | 2022-01-30 17:04 | CONSULTATION NOTE ---
Referring Provider Name of Referring Provider:: Dr. Arango Chief Complaint - Chief Complaint Chief Complaint: redness and swelling left leg past 11 days History of Present Illness - History of Present Illness HPI Comment/Other: This is a 66-year-old man with a long history of diabetes and also had Covid in the past but not recently. He presented to the emergency room approximately 12 days ago with a small area of redness to his left medial calf. He was placed on oral antibiotics and sent home and returned approximately 5 days later where he was admitted to the hospital because of increasing redness and swelling about his left leg. He has been in the hospital on intravenous antibiotics but has only made mild progress and still has redness, swelling and discomfort to the upper tibial region of his left leg. The only precipitating factor that he can associate with onset of symptoms was that there was a spider on his sock where the redness for started. There is no breaks in the skin. He had no injury. He does have less swelling now, able to bend his knee a little farther and is able to bear weight on his left leg. Most of his symptoms are just below the knee joint involving the proximal half of lower leg; redness and swelling. He denies fever or chills. He denies previous problems to the leg of this nature but has had cellulitis of the hands and upper extremity in the past. History - Past Medical History Cardiovascular: reports: High cholesterol Respiratory: reports: None Endocrine/Autoimmune: reports: Type 2 diabetes GI: reports: None : reports: None HEENT: reports: None Psych: reports: None Musculoskeletal: reports: None Derm: reports: None MRSA Hx?: No - Family & Social History Living arrangement: At home Living Situation: With spouse/s.o. Social History Notes: He does not smoke cigarettes, uses no marijuana. He smokes a rare cigar, less than 1/week. He drinks very rare alcohol, an occasional yareli about 1/week. 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 He is a . - Substance History Use: Uses substance without health or social issues: NONE Meds/Allgy - Home Medications Home Medications: Ambulatory Orders Medication Instructions Recorded Confirmed Metformin HCl 500 mg PO DAILY 05/10/14 01/23/22 Atorvastatin [Lipitor] 20 mg PO DAILY 08/05/21 01/23/22 Insulin Glargine [Lantus Solostar] 34 units SUBQ QPM 08/05/21 01/23/22 Lisinopril [Zestril] 2.5 mg PO DAILY 01/23/22 01/23/22 Multivit-Min/FA/Lycopen/Lutein 1 each PO DAILY 01/23/22 01/23/22 [Centrum Silver Men Tablet] - Allergies Allergies/Adverse Reactions: Allergies Allergy/AdvReac Type Severity Reaction Status Date / Time No Known Drug Allergies Allergy Verified 01/22/22 13:25 Exam - Vital Signs Vital Signs: Vital Signs x48h Temp Pulse Resp BP Pulse Ox 01/30/22 15:37 37.0 C 73 19 123/77 100 01/30/22 12:43 37.2 C 87 18 136/67 H 96 - Physical Exam General Appearance: positive: No acute distress, Alert Respiratory: positive: No respiratory distress Cardiovascular: positive: Regular rate & rhythm Peripheral Pulses: positive: 2+ Skin: positive: Warm, Dry Neurologic/Psychiatric: positive: Oriented x3, Motor nml, Sensation nml Comments/Other: There is redness, swelling and warmth but no fluctuance. He has mild tenderness over the patellar tendon insertion area and infrapatellar area below knee joint. He has -5 degrees extension and 70 degrees of active flexion of left knee without pain. There is no effusion to left knee and no prepatellar swelling left knee. The redness and swelling extend over the bicondylar region of the proximal tibia and distally several centimeters to the mid leg. There is warmth in the same region but no masses or localizing areas of fluctuance to suggest an abscess. There are no breaks in the skin. Previous lines to amy the areas of redness show a decreasing area of redness since admission. There is no sign of compartment syndrome. The calf is nontender. All of the abnormal signs are confined to the anterior aspect of the left leg. Conclusion and Plan - Lab Results Laboratory Results 01/30/22 16:38: POC Whole Bld Glucose 152 H 01/30/22 10:56: POC Whole Bld Glucose 163 H 01/30/22 07:18: POC Whole Bld Glucose 83 01/30/22 05:00: Sodium 132 L, Potassium 3.9, Chloride 99 L, Carbon Dioxide 25, Anion Gap 8.0, BUN 16, Creatinine 0.7, Estimated GFR (MDRD) 113, Glucose 109 H, Calcium 8.4 L 01/30/22 05:00: WBC 11.8 H, RBC 3.58 L, Hgb 10.5 L, Hct 31.9 L, MCV 89.1, MCH 29.3, MCHC 32.9, RDW 12.9, Plt Count 391, MPV 8.9, Neut # (Auto) 8.3 H, Lymph # (Auto) 1.9, [place] # (Auto) 1.3 H, Eos # (Auto) 0.2, Baso # (Auto) 0.1, Absolute Nucleated RBC 0.00, Nucleated RBC % 0.0 01/29/22 20:33: POC Whole Bld Glucose 161 H 01/29/22 16:39: POC Whole Bld Glucose 174 H 01/29/22 11:06: POC Whole Bld Glucose 134 H 01/29/22 08:05: POC Whole Bld Glucose 97 01/29/22 05:27: Sodium 140, Potassium 4.2, Chloride 104, Carbon Dioxide 26, Anion Gap 10.0, BUN 15, Creatinine 0.6, Estimated GFR (MDRD) 135, Glucose 111 H, Calcium 8.9 01/29/22 05:27: WBC 12.8 H, RBC 3.66 L, Hgb 10.9 L, Hct 32.6 L, MCV 89.1, MCH 29.8, MCHC 33.4, RDW 12.9, Plt Count 373, MPV 8.9, Neut # (Auto) 9.2 H, Lymph # (Auto) 2.1, [place] # (Auto) 1.2 H, Eos # (Auto) 0.2, Baso # (Auto) 0.1, Absolute Nucleated RBC 0.00, Nucleated RBC % 0.0 01/28/22 20:31: POC Whole Bld Glucose 242 H White blood cells show a decreasing trend on CBC - Diagnostic Imaging Results Diagnostic Imaging Results: negative: Read independently (CT scan shows edema to the proximal tibia, extra-articular left leg. There is mild effusion left knee.) - Diagnosis Diagnosis: Cellulitis left leg - Plan Plan: Continue present treatment with elevation and intravenous antibiotics, control of blood sugars to optimize patient. I do not see any surgical indications at this time.
[2022-01-30] MEDS: INSULIN GLARGINE 300 UNIT/3 ML PEN SUBQ SCH (21:29)
[2022-01-31] MEDS: IBUPROFEN 400 MG TABLET PO PRN ×2 (00:49→22:17)
[2022-01-31 05:01] LABS: BASOPHILS # (AUTO) 0.1 10^3/uL (0.0-0.1); BASOPHILS % (AUTO) 0.7 %; EOSINOPHILS # (AUTO) 0.2 10^3/uL (0.0-0.7); EOSINOPHILS % (AUTO) 1.8 %; HCT - HEMATOCRIT 31.3 % (42.0-52.0); HGB - HEMOGLOBIN 10.4 g/dL (14.0-18.0); LYMPHOCYTES # (AUTO) 1.9 10^3/uL (1.5-3.5); LYMPHOCYTES % (AUTO) 19.3 %; MEAN CORPUSCULAR HEMOGLOBIN 29.5 pg (27.0-31.0); MEAN CORPUSCULAR HGB CONC 33.2 g/dL (32.0-36.0); MEAN CORPUSCULAR VOLUME 88.7 fL (80.0-94.0); MEAN PLATELET VOLUME 8.9 fL (7.4-11.4); MONOCYTES # (AUTO) 1.2 10^3/uL (0.0-1.0); MONOCYTES % (AUTO) 12.3 %; NEUTROPHILS # (AUTO) 6.5 10^3/uL (1.5-6.6); NEUTROPHILS % (AUTO) 65.4 %; PLT - PLATELET COUNT 361 10^3/uL (130-450); RED BLOOD COUNT 3.53 10^6/uL (4.70-6.10); RED CELL DISTRIBUTION WIDTH 13.1 % (12.0-15.0)
[2022-01-31 05:23] LABS: CALCIUM 8.5 mg/dL (8.5-10.3); CREATININE 0.7 mg/dL (0.6-1.2); CRP - C-REACTIVE PROTEIN 1.8 mg/dL (0-1.0); POTASSIUM 3.7 mmol/L (3.5-5.0)
[2022-01-31] MEDS: VANCOMYCIN INJ 1 GM, VANCOMYCIN INJ 500 MG in SODIUM CHLORIDE 0.9% 500 ML IV SCH ×2 (06:59→18:02)
[2022-01-31] MEDS: PANTOPRAZOLE 40 MG TABLET PO SCH (06:59)
[2022-01-31] MEDS: SODIUM CHLORIDE FLUSH 0.9% 10 ML SYRINGE IVP SCH ×4 (07:00→23:46)
[2022-01-31] MEDS: INSULIN ASPART 300 UNIT/3 ML PEN SUBQ SCH ×4 (08:51→20:36)
[2022-01-31] MEDS: lisinopriL 5 MG TABLET PO SCH (08:52)
[2022-01-31] MEDS: SACCHAROMYCES BOULARDII 250 MG CAPSULE PO SCH ×2 (08:52→16:48)
[2022-01-31] MEDS: ATORVASTATIN 10 MG TABLET PO SCH (08:53)
[2022-01-31] MEDS: CEFEPIME 2 GM in SODIUM CHLORIDE 0.9% MINIBAG 100 ML IV SCH ×2 (08:53→20:31)
[2022-01-31] MEDS: polyethylene glycoL 3350 17 GM PACKET PO SCH (08:54)
[2022-01-31] MEDS: ENOXAPARIN 40 MG/0.4 ML SYRINGE SUBQ SCH (08:54)
--- NOTE | 2022-01-31 10:52 | PROVIDER PROGRESS NOTE ---
Assessment/Plan - Problem List (1) Cellulitis of left lower leg Assessment/Plan: 01/31 pt report he can increase his bending of left knee, pain is reduced. the erythema at Left low extremity is reduced. But the lateral of left extremity close the knee show mild swelling. pt had CT of left knee to show small knee effusion and concern of developing subcutaneous abscess, and possible involvement of the deep infrapatellar bursa. consulted with orthopedics. surgeon suggested medical management without procedure at this point. pt's WBC is gradually improved to normal arrange, CRP is gradually reduced as well. blood culture is negative for bacteremia. continue IV of Cefepim and Vancomycin, and probiotics continue pain control order PT/OT and encourage pt ambulate safely, rise the left leg. (2) Diabetes mellitus Impression: A1C is 7.5. Blood gucose is well controlled on the current insulin regimen. Continue carb controlled diet. - Current Meds Current Meds: Current Medications Generic Name Dose Route Start Last Admin Trade Name Freq PRN Reason Stop Dose Admin Hydrocodone Bitart/Acetaminophen 1 tab 01/22/22 20:24 01/30/22 21:38 Hydrocod/Acetam 10 Mg/325 Mg Tablet PO 1 tab Q4HR PRN Administration Pain 8 to 10 Atorvastatin Calcium 20 mg 01/24/22 09:00 01/31/22 08:53 Atorvastatin 10 Mg Tablet PO 20 mg DAILY CORI Administration Enoxaparin Sodium 40 mg 01/23/22 09:00 01/31/22 08:54 Enoxaparin 40 Mg/0.4 Ml Syringe SUBQ 40 mg DAILY CORI Administration Sodium Chloride 250 mls @ 20 mls/hr 01/27/22 10:41 01/31/22 10:23 Normal Saline 0.9% IV 20 mls/hr Q24H PRN Infusion TKO RATE Cefepime HCl 2 gm/ Sodium 100 mls @ 200 mls/hr 01/28/22 21:00 01/31/22 10:05 Chloride IV Infused BID CORI Infusion Vancomycin HCl 1 gm/ 500 mls @ 250 mls/hr 01/28/22 19:00 01/31/22 09:05 Vancomycin HCl 500 mg/ Sodium IV Infused Chloride Q12H CORI Infusion Ibuprofen 400 mg 01/25/22 10:57 01/31/22 00:49 Ibuprofen 400 Mg Tablet PO 400 mg Q6HR PRN Administration PAIN Insulin Aspart 3 - 11 unit 01/28/22 21:00 01/31/22 08:51 Insulin Aspart 300 Unit/3 Ml Pen SUBQ Not Given 0800,1200,1700,2100 [facility] Protocol Insulin Glargine 34 unit 01/23/22 21:00 01/30/22 21:29 Insulin Glargine 300 Unit/3 Ml Pen SUBQ 34 unit QPM CORI Administration Lisinopril 2.5 mg 01/24/22 09:00 01/31/22 08:52 Lisinopril 5 Mg Tablet PO 2.5 mg DAILY CORI Administration Pantoprazole Sodium 40 mg 01/25/22 11:00 01/31/22 06:59 Pantoprazole 40 Mg Tablet PO 40 mg QDAC CORI Administration Polyethylene Glycol 17 gm 01/25/22 10:00 01/31/22 08:54 Polyethylene Glycol 3350 17 Gm Packet PO Not Given DAILY CORI Saccharomyces Boulardii 250 mg 01/24/22 10:11 01/31/22 08:52 Saccharomyces Boulardii 250 Mg Capsule PO 250 mg BIDWM CORI Administration Sodium Chloride 10 ml 01/23/22 01:00 01/31/22 08:54 Sodium Chloride Flush 0.9% 10 Ml Syringe IVP Not Given 0100,0900,1700 [facility] - Lab Result Fish Bone Diagrams: 01/31/22 04:50 01/31/22 04:50 - Additional Planning My Orders: My Active Orders 01/31/22 Evaluate and Treat OT [OT] Routine Evaluate and Treat PT [PT] Routine Subjective - Subjective Patient Reports: Feeling Better, Resting Comfortably Objective Vital Signs: Vital Signs - 24 hr 01/30/22 01/30/22 01/30/22 12:43 15:37 21:44 Temperature 37.2 C 37.0 C 37.5 C Heart Rate [ 87 73 87 Brachial] Respiratory 18 19 12 Rate Blood Pressure 136/67 H 123/77 142/73 H [Left Brachial artery] O2 Saturation 96 100 100 01/31/22 01/31/22 00:50 08:20 Temperature 37.1 C 36.9 C Heart Rate [ 83 62 Brachial] Respiratory 18 18 Rate Blood Pressure 120/90 H 116/65 [Left Brachial artery] O2 Saturation 99 99 Oxygen O2 Source Room air I&O (Last 24 Hrs): Intake and Output Totals x24h 01/29/22 01/30/22 01/31/22 23:59 23:59 23:59 Intake Total 3856.000 2770.667 1080 Balance 3856.000 2770.667 1080 General: Alert, Oriented x3, Cooperative, No acute distress HEENT: Atraumatic Neck: Supple Lymphatic: no adenopathy Neuro: Alert, Non Focal, Oriented Times 3 Cardiovascular: Regular rate, Normal S1, Normal S2 Respiratory: Chest non-tender, No respiratory distress Abdomen: Normal bowel sounds, Soft, No tenderness Extremities: Normal pulses, Other (warmth, and mild swelling at left lateral below of the knee of left lower extremity) Skin: No breakdown - Results Results: Laboratory Results WBC 10.0 x10^3/uL (4.8-10.8) 01/31/22 04:50 RBC 3.53 10^6/uL (4.70-6.10) L 01/31/22 04:50 Hgb 10.4 g/dL (14.0-18.0) L 01/31/22 04:50 Hct 31.3 % (42.0-52.0) L 01/31/22 04:50 MCV 88.7 fL (80.0-94.0) 01/31/22 04:50 MCH 29.5 pg (27.0-31.0) 01/31/22 04:50 MCHC 33.2 g/dL (32.0-36.0) 01/31/22 04:50 RDW 13.1 % (12.0-15.0) 01/31/22 04:50 Plt Count 361 10^3/uL (130-450) 01/31/22 04:50 MPV 8.9 fL (7.4-11.4) 01/31/22 04:50 Reticulocyte % (Auto) 0.87 % (0.5-2.3) 01/24/22 04:59 Neut # (Auto) 6.5 10^3/uL (1.5-6.6) 01/31/22 04:50 Lymph # (Auto) 1.9 10^3/uL (1.5-3.5) 01/31/22 04:50 [place] # (Auto) 1.2 10^3/uL (0.0-1.0) H 01/31/22 04:50 Eos # (Auto) 0.2 10^3/uL (0.0-0.7) 01/31/22 04:50 Baso # (Auto) 0.1 10^3/uL (0.0-0.1) 01/31/22 04:50 Absolute Nucleated RBC 0.00 x10^3/uL 01/31/22 04:50 Total Counted 100 01/23/22 04:48 Band Neuts % (Manual) 0 % (0-10) 01/23/22 04:48 Abnorm Lymph % (Manual) 0 % 01/23/22 04:48 Nucleated RBC % 0.0 /100WBC 01/31/22 04:50 Neutrophils # (Manual) 11.2 10^3/uL (1.5-6.6) H 01/23/22 04:48 Lymphocytes # (Manual) 1.9 10^3/uL (1.5-3.5) 01/23/22 04:48 Monocytes # (Manual) 1.3 10^3/uL (0.0-1.0) H 01/23/22 04:48 Eosinophils # (Manual) 0.0 10^3/uL (0-0.7) 01/23/22 04:48 Basophils # (Manual) 0.0 10^3/uL (0-0.1) 01/23/22 04:48 Differential Comment MANUAL DIFFERENTIAL 01/23/22 04:48 WBC Morphology NORMAL APPEARANCE (NORMAL) 01/23/22 04:48 Platelet Estimate NORMAL (130-450,000) (NORMAL) 01/23/22 04:48 Platelet Morphology NORMAL APPEARANCE (NORMAL) 01/23/22 04:48 RBC Morph Micro Appear NORMAL APPEARANCE (NORMAL) 01/23/22 04:48 ESR 73 mm/Hr (0-20) H 01/28/22 06:04 Absolute Retic 0.031 10^6/uL (0.020-0.110) 01/24/22 04:59 Sodium 136 mmol/L (135-145) 01/31/22 04:50 Potassium 3.7 mmol/L (3.5-5.0) 01/31/22 04:50 Chloride 100 mmol/L (101-111) L 01/31/22 04:50 Carbon Dioxide 26 mmol/L (21-32) 01/31/22 04:50 Anion Gap 10.0 (6-13) 01/31/22 04:50 BUN 15 mg/dL (6-20) 01/31/22 04:50 Creatinine 0.7 mg/dL (0.6-1.2) 01/31/22 04:50 Estimated GFR (MDRD) 113 (>89) 01/31/22 04:50 Glucose 108 mg/dL (70-100) H 01/31/22 04:50 POC Whole Bld Glucose 99 mg/dL (70 - 100) 01/31/22 07:48 Estimat Average Glucose 169 mg/dL (70-100) H 01/23/22 04:48 Hemoglobin A1c % 7.5 % (4.27-6.07) H 01/23/22 04:48 Lactic Acid 1.1 mmol/L (0.5-2.2) 01/22/22 18:58 Calcium 8.5 mg/dL (8.5-10.3) 01/31/22 04:50 Iron 26 ug/dL (45-182) L 01/24/22 04:59 TIBC 211 ug/dL (250-450) L 01/24/22 04:59 % Saturation 12 % (20-50) L 01/24/22 04:59 Transferrin 151 mg/dL (180-329) L 01/24/22 04:59 Ferritin 244.6 ng/mL (23.9-336.2) 01/24/22 04:59 Total Bilirubin 0.6 mg/dL (0.2-1.0) 01/24/22 04:59 AST 30 IU/L (10-42) 01/24/22 04:59 ALT 39 IU/L (10-60) 01/24/22 04:59 Alkaline Phosphatase 85 IU/L (42-121) 01/24/22 04:59 Lactate Dehydrogenase 130 IU/L (91-225) 01/24/22 04:59 C-Reactive Protein 1.8 mg/dL (0-1.0) H 01/31/22 04:50 Total Protein 6.2 g/dL (6.7-8.2) L 01/24/22 04:59 Albumin 2.6 g/dL (3.2-5.5) L 01/24/22 04:59 Globulin 3.6 g/dL (2.1-4.2) 01/24/22 04:59 Albumin/Globulin Ratio 0.7 (1.0-2.2) L 01/24/22 04:59 Vitamin B12 406 pg/mL (180-914) 01/24/22 04:59 Nasal Adenovirus (PCR) NOT DETECTED 01/22/22 19:17 Nasal B. parapertussis DNA (PCR) NOT DETECTED 01/22/22 19:17 Nasal Coronavir 229E PCR NOT DETECTED 01/22/22 19:17 Nasal Coronavir HKU1 PCR NOT DETECTED 01/22/22 19:17 Nasal Coronavir NL63 PCR NOT DETECTED 01/22/22 19:17 Nasal Coronavir OC43 PCR NOT DETECTED 01/22/22 19:17 Nasal Enterovir/Rhinovir PCR NOT DETECTED 01/22/22 19:17 Nasal Influenza B PCR NOT DETECTED 01/22/22 19:17 Nasal Influenza A PCR NOT DETECTED 01/22/22 19:17 Nasal Parainfluen 1 PCR NOT DETECTED 01/22/22 19:17 Nasal Parainfluen 2 PCR NOT DETECTED 01/22/22 19:17 Nasal Parainfluen 3 PCR NOT DETECTED 01/22/22 19:17 Nasal Parainfluen 4 PCR NOT DETECTED 01/22/22 19:17 Nasal RSV (PCR) NOT DETECTED 01/22/22 19:17 Nasal B.pertussis DNA PCR NOT DETECTED 01/22/22 19:17 Nasal C.pneumoniae (PCR) NOT DETECTED 01/22/22 19:17 [place] Human Metapneumo PCR NOT DETECTED 01/22/22 19:17 Nasal M.pneumoniae (PCR) NOT DETECTED 01/22/22 19:17 Nasal SARS-CoV-2 (PCR) NOT DETECTED 01/22/22 19:17 Last Dose Date Not Reportable 01/27/22 18:00 Last Dose Time Not Reportable 01/27/22 18:00 Vancomycin Trough 12.7 ug/mL (10.0-20.0) 01/27/22 18:00 - Procedures Procedures: Procedures EXCISION OF ASCENDING COLON, ENDO (08/05/21) EXCISION OF DESCENDING COLON, ENDO (08/05/21) EXCISION OF RECTUM, ENDO (08/05/21) EXCISION OF SIGMOID COLON, ENDO (08/05/21) EXCISION OF TRANSVERSE COLON, ENDO (08/05/21) ABX Reporting Has patient been on IV antibiotics over the past 48 hours?: Yes Current Medications - Current Medications Current Medications: Active Medications Hydrocodone Bitart/Acetaminophen (Hydrocod/Acetam 10 Mg/325 Mg Tablet) 1 tab PO Q4HR PRN PRN Reason: Pain 8 to 10 Last Admin: 01/30/22 21:38 Dose: 1 tab Atorvastatin Calcium (Atorvastatin 10 Mg Tablet) 20 mg PO DAILY [facility] Last Admin: 01/31/22 08:53 Dose: 20 mg Enoxaparin Sodium (Enoxaparin 40 Mg/0.4 Ml Syringe) 40 mg SUBQ DAILY [facility] Last Admin: 01/31/22 08:54 Dose: 40 mg Sodium Chloride (Normal Saline 0.9%) 250 mls @ 20 mls/hr IV Q24H PRN PRN Reason: TKO RATE Last Infusion: 01/31/22 10:23 Dose: 20 mls/hr Cefepime HCl 2 gm/ Sodium (Chloride) 100 mls @ 200 mls/hr IV BID [facility] Last Infusion: 01/31/22 10:05 Dose: Infused Vancomycin HCl 1 gm/Vancomycin HCl 500 mg/ Sodium Chloride 500 mls @ 250 mls/hr IV Q12H [facility] Last Infusion: 01/31/22 09:05 Dose: Infused Ibuprofen (Ibuprofen 400 Mg Tablet) 400 mg PO Q6HR PRN PRN Reason: PAIN Last Admin: 01/31/22 00:49 Dose: 400 mg Insulin Aspart (Insulin Aspart 300 Unit/3 Ml Pen) 3 - 11 unit SUBQ 0800,1200,1700,2100 [facility]; Protocol Last Admin: 01/31/22 08:51 Dose: Not Given Insulin Glargine (Insulin Glargine 300 Unit/3 Ml Pen) 34 unit SUBQ QPM [facility] Last Admin: 01/30/22 21:29 Dose: 34 unit Lisinopril (Lisinopril 5 Mg Tablet) 2.5 mg PO DAILY [facility] Last Admin: 01/31/22 08:52 Dose: 2.5 mg Pantoprazole Sodium (Pantoprazole 40 Mg Tablet) 40 mg PO QDAC [facility] Last Admin: 01/31/22 06:59 Dose: 40 mg Polyethylene Glycol (Polyethylene Glycol 3350 17 Gm Packet) 17 gm PO DAILY [facility] Last Admin: 01/31/22 08:54 Dose: Not Given Saccharomyces Boulardii (Saccharomyces Boulardii 250 Mg Capsule) 250 mg PO BIDWM [facility] Last Admin: 01/31/22 08:52 Dose: 250 mg Sodium Chloride (Sodium Chloride Flush 0.9% 10 Ml Syringe) 10 ml IVP PRN PRN PRN Reason: NEEDED PER PROVIDER ORDERS Sodium Chloride (Sodium Chloride Flush 0.9% 10 Ml Syringe) 10 ml IVP 0100,0900,1700 [facility] Last Admin: 01/31/22 08:54 Dose: Not Given Metformin HCl 500 mg PO DAILY 05/10/14 Atorvastatin [Lipitor] 20 mg PO DAILY 08/05/21 Insulin Glargine [Lantus Solostar] 34 units SUBQ QPM 08/05/21 Lisinopril [Zestril] 2.5 mg PO DAILY 01/23/22 Multivit-Min/FA/Lycopen/Lutein [Centrum Silver Men Tablet] 1 each PO DAILY 01/23/22
[2022-01-31 16:59] LABS: VANCOMYCIN,TROUGH 19.6 ug/mL (10.0-20.0)
[2022-01-31] MEDS: HYDROcod/ACETAM 10 MG/325 MG TABLET PO PRN (20:28)
[2022-01-31] MEDS: SODIUM CHLORIDE 0.9% 250 ML IV PRN (20:30)
[2022-01-31] MEDS: INSULIN GLARGINE 300 UNIT/3 ML PEN SUBQ SCH (20:36)
[2022-02-01] MEDS: HYDROcod/ACETAM 10 MG/325 MG TABLET PO PRN (00:47)
[2022-02-01 06:11] LABS: BASOPHILS # (AUTO) 0.1 10^3/uL (0.0-0.1); BASOPHILS % (AUTO) 0.6 %; EOSINOPHILS # (AUTO) 0.2 10^3/uL (0.0-0.7); EOSINOPHILS % (AUTO) 2.1 %; HCT - HEMATOCRIT 31.1 % (42.0-52.0); HGB - HEMOGLOBIN 10.4 g/dL (14.0-18.0); LYMPHOCYTES # (AUTO) 1.8 10^3/uL (1.5-3.5); MEAN CORPUSCULAR HEMOGLOBIN 30.1 pg (27.0-31.0); MEAN CORPUSCULAR HGB CONC 33.4 g/dL (32.0-36.0); MEAN CORPUSCULAR VOLUME 89.9 fL (80.0-94.0); MEAN PLATELET VOLUME 9.4 fL (7.4-11.4); MONOCYTES # (AUTO) 1.3 10^3/uL (0.0-1.0); NEUTROPHILS # (AUTO) 5.6 10^3/uL (1.5-6.6); NEUTROPHILS % (AUTO) 63.1 %; PLT - PLATELET COUNT 386 10^3/uL (130-450); RED BLOOD COUNT 3.46 10^6/uL (4.70-6.10); WHITE BLOOD COUNT 8.9 x10^3/uL (4.8-10.8)
[2022-02-01 06:16] LABS: CALCIUM 8.6 mg/dL (8.5-10.3); CREATININE 0.7 mg/dL (0.6-1.2); POTASSIUM 3.9 mmol/L (3.5-5.0)
[2022-02-01] MEDS: IBUPROFEN 400 MG TABLET PO PRN ×2 (06:32→16:29)
[2022-02-01] MEDS: VANCOMYCIN INJ 1 GM, VANCOMYCIN INJ 500 MG in SODIUM CHLORIDE 0.9% 500 ML IV SCH ×2 (06:32→20:28)
[2022-02-01] MEDS: PANTOPRAZOLE 40 MG TABLET PO SCH (06:32)
[2022-02-01] MEDS: INSULIN ASPART 300 UNIT/3 ML PEN SUBQ SCH ×4 (07:25→20:29)
[2022-02-01] MEDS: polyethylene glycoL 3350 17 GM PACKET PO SCH (08:29)
[2022-02-01] MEDS: ATORVASTATIN 10 MG TABLET PO SCH (08:31)
[2022-02-01] MEDS: lisinopriL 5 MG TABLET PO SCH (08:31)
[2022-02-01] MEDS: ENOXAPARIN 40 MG/0.4 ML SYRINGE SUBQ SCH (08:31)
[2022-02-01] MEDS: SACCHAROMYCES BOULARDII 250 MG CAPSULE PO SCH ×2 (08:31→17:01)
[2022-02-01] MEDS: CEFEPIME 2 GM in SODIUM CHLORIDE 0.9% MINIBAG 100 ML IV SCH ×2 (08:32→20:29)
[2022-02-01] MEDS: SODIUM CHLORIDE FLUSH 0.9% 10 ML SYRINGE IVP SCH ×3 (08:32→23:32)
--- NOTE | 2022-02-01 13:57 | PROVIDER PROGRESS NOTE ---
Assessment/Plan - Problem List (1) Cellulitis of left lower leg Assessment/Plan: 02/01 pt still complained pain at left lateral below the kneed. It is likely developing small size of abscess. pt had CT on 01/30 which at the level of the proximal tibial plateau was suspicious for a developing abscess. we consulted with orthopedics surgeon, surgeon suggested no procedure at that time. I called Dr. Rodriguez orthopedics on today again and left message to him, hope he could see pt again for drainage of the abscess. Otherwise, pt's WBC continue trended down at normal arrange, CRP is continuing trending down. pt's glucose is well controlled. PT and OT evaluated and treated for patient. Patient tolerated tr eatment, recommended patient can be discharged to home without additional physical and occupational care. continue IV ceftpime and Vancomycin, and probiotics. 01/31 pt report he can increase his bending of left knee, pain is reduced. the erythema at Left low extremity is reduced. But the lateral of left extremity close the knee show mild swelling. pt had CT of left knee to show small knee effusion and concern of developing subcutaneous abscess, and possible involvement of the deep infrapatellar bursa. consulted with orthopedics. surgeon suggested medical management without procedure at this point. pt's WBC is gradually improved to normal arrange, CRP is gradually reduced as well. blood culture is negative for bacteremia. continue IV of Cefepim and Vancomycin, and probiotics continue pain control order PT/OT and encourage pt ambulate safely, rise the left leg. (2) Diabetes mellitus Impression: A1C is 7.5. Blood gucose is well controlled on the current insulin regimen. Continue carb controlled diet. - Current Meds Current Meds: Current Medications Generic Name Dose Route Start Last Admin Trade Name Freq PRN Reason Stop Dose Admin Hydrocodone Bitart/Acetaminophen 1 tab 01/22/22 20:24 02/01/22 00:47 Hydrocod/Acetam 10 Mg/325 Mg Tablet PO 1 tab Q4HR PRN Administration Pain 8 to 10 Atorvastatin Calcium 20 mg 01/24/22 09:00 02/01/22 08:31 Atorvastatin 10 Mg Tablet PO 20 mg DAILY CORI Administration Enoxaparin Sodium 40 mg 01/23/22 09:00 02/01/22 08:31 Enoxaparin 40 Mg/0.4 Ml Syringe SUBQ 40 mg DAILY CORI Administration Sodium Chloride 250 mls @ 20 mls/hr 01/27/22 10:41 01/31/22 22:00 Normal Saline 0.9% IV 0 mls/hr Q24H PRN Infusion TKO RATE Cefepime HCl 2 gm/ Sodium 100 mls @ 200 mls/hr 01/28/22 21:00 02/01/22 09:06 Chloride IV Infused BID CORI Infusion Vancomycin HCl 1 gm/ 500 mls @ 250 mls/hr 01/28/22 19:00 02/01/22 08:32 Vancomycin HCl 500 mg/ Sodium IV Infused Chloride Q12H CORI Infusion Ibuprofen 400 mg 01/25/22 10:57 02/01/22 06:32 Ibuprofen 400 Mg Tablet PO 400 mg Q6HR PRN Administration PAIN Insulin Aspart 3 - 11 unit 01/28/22 21:00 02/01/22 11:42 Insulin Aspart 300 Unit/3 Ml Pen SUBQ Not Given 0800,1200,1700,2100 [facility] Protocol Insulin Glargine 34 unit 01/23/22 21:00 01/31/22 20:36 Insulin Glargine 300 Unit/3 Ml Pen SUBQ 34 unit QPM CORI Administration Lisinopril 2.5 mg 01/24/22 09:00 02/01/22 08:31 Lisinopril 5 Mg Tablet PO 2.5 mg DAILY CORI Administration Pantoprazole Sodium 40 mg 01/25/22 11:00 02/01/22 06:32 Pantoprazole 40 Mg Tablet PO 40 mg QDAC CORI Administration Polyethylene Glycol 17 gm 01/25/22 10:00 02/01/22 08:29 Polyethylene Glycol 3350 17 Gm Packet PO Not Given DAILY CORI Saccharomyces Boulardii 250 mg 01/24/22 10:11 02/01/22 08:31 Saccharomyces Boulardii 250 Mg Capsule PO 250 mg BIDWM CORI Administration Sodium Chloride 10 ml 01/23/22 01:00 02/01/22 08:32 Sodium Chloride Flush 0.9% 10 Ml Syringe IVP Not Given 0100,0900,1700 [facility] - Lab Result Fish Bone Diagrams: 02/01/22 05:33 02/01/22 05:33 - Additional Planning My Orders: My Active Orders 02/02/22 05:00 CRP - C-REACTIVE PROTEIN [CHEM] DAILYLAB 02/03/22 05:00 CRP - C-REACTIVE PROTEIN [CHEM] DAILYLAB 02/04/22 05:00 CRP - C-REACTIVE PROTEIN [CHEM] DAILYLAB 02/05/22 05:00 CRP - C-REACTIVE PROTEIN [CHEM] DAILYLAB Subjective - Subjective Patient Reports: Resting Comfortably Objective Vital Signs: Vital Signs - 24 hr 01/31/22 01/31/22 02/01/22 15:49 23:47 06:45 Temperature 36.9 C 37.2 C 36.4 C L Heart Rate [ 78 71 58 L Brachial] Respiratory 18 16 16 Rate Blood Pressure 127/69 123/63 129/70 [Left Brachial artery] O2 Saturation 100 96 99 Oxygen O2 Source [Without Activity] Room air O2 Source Room air I&O (Last 24 Hrs): Intake and Output Totals x24h 01/30/22 01/31/22 02/01/22 23:59 23:59 23:59 Intake Total 2770.667 2840.000 1850 Balance 2770.667 2840.000 1850 General: Alert, Oriented x3, Cooperative, No acute distress HEENT: Atraumatic Neck: Supple Neuro: Alert, Non Focal, Oriented Times 3 Cardiovascular: Regular rate, Normal S1, Normal S2 Respiratory: Chest non-tender, No respiratory distress Abdomen: Normal bowel sounds, Soft, No tenderness Extremities: Normal pulses, Other (small size likely fluid collection at left lateral below of left knee) - Results Results: Laboratory Results WBC 8.9 x10^3/uL (4.8-10.8) 02/01/22 05:33 RBC 3.46 10^6/uL (4.70-6.10) L 02/01/22 05:33 Hgb 10.4 g/dL (14.0-18.0) L 02/01/22 05:33 Hct 31.1 % (42.0-52.0) L 02/01/22 05:33 MCV 89.9 fL (80.0-94.0) 02/01/22 05:33 MCH 30.1 pg (27.0-31.0) 02/01/22 05:33 MCHC 33.4 g/dL (32.0-36.0) 02/01/22 05:33 RDW 13.0 % (12.0-15.0) 02/01/22 05:33 Plt Count 386 10^3/uL (130-450) 02/01/22 05:33 MPV 9.4 fL (7.4-11.4) 02/01/22 05:33 Reticulocyte % (Auto) 0.87 % (0.5-2.3) 01/24/22 04:59 Neut # (Auto) 5.6 10^3/uL (1.5-6.6) 02/01/22 05:33 Lymph # (Auto) 1.8 10^3/uL (1.5-3.5) 02/01/22 05:33 [place] # (Auto) 1.3 10^3/uL (0.0-1.0) H 02/01/22 05:33 Eos # (Auto) 0.2 10^3/uL (0.0-0.7) 02/01/22 05:33 Baso # (Auto) 0.1 10^3/uL (0.0-0.1) 02/01/22 05:33 Absolute Nucleated RBC 0.00 x10^3/uL 02/01/22 05:33 Total Counted 100 01/23/22 04:48 Band Neuts % (Manual) 0 % (0-10) 01/23/22 04:48 Abnorm Lymph % (Manual) 0 % 01/23/22 04:48 Nucleated RBC % 0.0 /100WBC 02/01/22 05:33 Neutrophils # (Manual) 11.2 10^3/uL (1.5-6.6) H 01/23/22 04:48 Lymphocytes # (Manual) 1.9 10^3/uL (1.5-3.5) 01/23/22 04:48 Monocytes # (Manual) 1.3 10^3/uL (0.0-1.0) H 01/23/22 04:48 Eosinophils # (Manual) 0.0 10^3/uL (0-0.7) 01/23/22 04:48 Basophils # (Manual) 0.0 10^3/uL (0-0.1) 01/23/22 04:48 Differential Comment MANUAL DIFFERENTIAL 01/23/22 04:48 WBC Morphology NORMAL APPEARANCE (NORMAL) 01/23/22 04:48 Platelet Estimate NORMAL (130-450,000) (NORMAL) 01/23/22 04:48 Platelet Morphology NORMAL APPEARANCE (NORMAL) 01/23/22 04:48 RBC Morph Micro Appear NORMAL APPEARANCE (NORMAL) 01/23/22 04:48 ESR 73 mm/Hr (0-20) H 01/28/22 06:04 Absolute Retic 0.031 10^6/uL (0.020-0.110) 01/24/22 04:59 Sodium 137 mmol/L (135-145) 02/01/22 05:33 Potassium 3.9 mmol/L (3.5-5.0) 02/01/22 05:33 Chloride 102 mmol/L (101-111) 02/01/22 05:33 Carbon Dioxide 25 mmol/L (21-32) 02/01/22 05:33 Anion Gap 10.0 (6-13) 02/01/22 05:33 BUN 15 mg/dL (6-20) 02/01/22 05:33 Creatinine 0.7 mg/dL (0.6-1.2) 02/01/22 05:33 Estimated GFR (MDRD) 113 (>89) 02/01/22 05:33 Glucose 94 mg/dL (70-100) 02/01/22 05:33 POC Whole Bld Glucose 99 mg/dL (70 - 100) 02/01/22 10:57 Estimat Average Glucose 169 mg/dL (70-100) H 01/23/22 04:48 Hemoglobin A1c % 7.5 % (4.27-6.07) H 01/23/22 04:48 Lactic Acid 1.1 mmol/L (0.5-2.2) 01/22/22 18:58 Calcium 8.6 mg/dL (8.5-10.3) 02/01/22 05:33 Iron 26 ug/dL (45-182) L 01/24/22 04:59 TIBC 211 ug/dL (250-450) L 01/24/22 04:59 % Saturation 12 % (20-50) L 01/24/22 04:59 Transferrin 151 mg/dL (180-329) L 01/24/22 04:59 Ferritin 244.6 ng/mL (23.9-336.2) 01/24/22 04:59 Total Bilirubin 0.6 mg/dL (0.2-1.0) 01/24/22 04:59 AST 30 IU/L (10-42) 01/24/22 04:59 ALT 39 IU/L (10-60) 01/24/22 04:59 Alkaline Phosphatase 85 IU/L (42-121) 01/24/22 04:59 Lactate Dehydrogenase 130 IU/L (91-225) 01/24/22 04:59 C-Reactive Protein 1.2 mg/dL (0-1.0) H 02/01/22 05:33 Total Protein 6.2 g/dL (6.7-8.2) L 01/24/22 04:59 Albumin 2.6 g/dL (3.2-5.5) L 01/24/22 04:59 Globulin 3.6 g/dL (2.1-4.2) 01/24/22 04:59 Albumin/Globulin Ratio 0.7 (1.0-2.2) L 01/24/22 04:59 Vitamin B12 406 pg/mL (180-914) 01/24/22 04:59 Nasal Adenovirus (PCR) NOT DETECTED 01/22/22 19:17 Nasal B. parapertussis DNA (PCR) NOT DETECTED 01/22/22 19:17 Nasal Coronavir 229E PCR NOT DETECTED 01/22/22 19:17 Nasal Coronavir HKU1 PCR NOT DETECTED 01/22/22 19:17 Nasal Coronavir NL63 PCR NOT DETECTED 01/22/22 19:17 Nasal Coronavir OC43 PCR NOT DETECTED 01/22/22 19:17 Nasal Enterovir/Rhinovir PCR NOT DETECTED 01/22/22 19:17 Nasal Influenza B PCR NOT DETECTED 01/22/22 19:17 Nasal Influenza A PCR NOT DETECTED 01/22/22 19:17 Nasal Parainfluen 1 PCR NOT DETECTED 01/22/22 19:17 Nasal Parainfluen 2 PCR NOT DETECTED 01/22/22 19:17 Nasal Parainfluen 3 PCR NOT DETECTED 01/22/22 19:17 Nasal Parainfluen 4 PCR NOT DETECTED 01/22/22 19:17 Nasal RSV (PCR) NOT DETECTED 01/22/22 19:17 Nasal B.pertussis DNA PCR NOT DETECTED 01/22/22 19:17 Nasal C.pneumoniae (PCR) NOT DETECTED 01/22/22 19:17 [place] Human Metapneumo PCR NOT DETECTED 01/22/22 19:17 Nasal M.pneumoniae (PCR) NOT DETECTED 01/22/22 19:17 Nasal SARS-CoV-2 (PCR) NOT DETECTED 01/22/22 19:17 Last Dose Date Not Reportable 01/31/22 16:44 Last Dose Time Not Reportable 01/31/22 16:44 Vancomycin Trough 19.6 ug/mL (10.0-20.0) 01/31/22 16:44 - Procedures Procedures: Procedures EXCISION OF ASCENDING COLON, ENDO (08/05/21) EXCISION OF DESCENDING COLON, ENDO (08/05/21) EXCISION OF RECTUM, ENDO (08/05/21) EXCISION OF SIGMOID COLON, ENDO (08/05/21) EXCISION OF TRANSVERSE COLON, ENDO (08/05/21) ABX Reporting Has patient been on IV antibiotics over the past 48 hours?: Yes Current Medications - Current Medications Current Medications: Active Medications Hydrocodone Bitart/Acetaminophen (Hydrocod/Acetam 10 Mg/325 Mg Tablet) 1 tab PO Q4HR PRN PRN Reason: Pain 8 to 10 Last Admin: 02/01/22 00:47 Dose: 1 tab Atorvastatin Calcium (Atorvastatin 10 Mg Tablet) 20 mg PO DAILY [facility] Last Admin: 02/01/22 08:31 Dose: 20 mg Enoxaparin Sodium (Enoxaparin 40 Mg/0.4 Ml Syringe) 40 mg SUBQ DAILY [facility] Last Admin: 02/01/22 08:31 Dose: 40 mg Sodium Chloride (Normal Saline 0.9%) 250 mls @ 20 mls/hr IV Q24H PRN PRN Reason: TKO RATE Last Infusion: 01/31/22 22:00 Dose: 0 mls/hr Cefepime HCl 2 gm/ Sodium (Chloride) 100 mls @ 200 mls/hr IV BID [facility] Last Infusion: 02/01/22 09:06 Dose: Infused Vancomycin HCl 1 gm/Vancomycin HCl 500 mg/ Sodium Chloride 500 mls @ 250 mls/hr IV Q12H [facility] Last Infusion: 02/01/22 08:32 Dose: Infused Ibuprofen (Ibuprofen 400 Mg Tablet) 400 mg PO Q6HR PRN PRN Reason: PAIN Last Admin: 02/01/22 06:32 Dose: 400 mg Insulin Aspart (Insulin Aspart 300 Unit/3 Ml Pen) 3 - 11 unit SUBQ 0800,1200,1700,2100 [facility]; Protocol Last Admin: 02/01/22 11:42 Dose: Not Given Insulin Glargine (Insulin Glargine 300 Unit/3 Ml Pen) 34 unit SUBQ QPM [facility] Last Admin: 01/31/22 20:36 Dose: 34 unit Lisinopril (Lisinopril 5 Mg Tablet) 2.5 mg PO DAILY [facility] Last Admin: 02/01/22 08:31 Dose: 2.5 mg Pantoprazole Sodium (Pantoprazole 40 Mg Tablet) 40 mg PO QDAC [facility] Last Admin: 02/01/22 06:32 Dose: 40 mg Polyethylene Glycol (Polyethylene Glycol 3350 17 Gm Packet) 17 gm PO DAILY [facility] Last Admin: 02/01/22 08:29 Dose: Not Given Saccharomyces Boulardii (Saccharomyces Boulardii 250 Mg Capsule) 250 mg PO BIDWM [facility] Last Admin: 02/01/22 08:31 Dose: 250 mg Sodium Chloride (Sodium Chloride Flush 0.9% 10 Ml Syringe) 10 ml IVP PRN PRN PRN Reason: NEEDED PER PROVIDER ORDERS Sodium Chloride (Sodium Chloride Flush 0.9% 10 Ml Syringe) 10 ml IVP 0100,0900,1700 [facility] Last Admin: 02/01/22 08:32 Dose: Not Given Metformin HCl 500 mg PO DAILY 05/10/14 Atorvastatin [Lipitor] 20 mg PO DAILY 08/05/21 Insulin Glargine [Lantus Solostar] 34 units SUBQ QPM 08/05/21 Lisinopril [Zestril] 2.5 mg PO DAILY 01/23/22 Multivit-Min/FA/Lycopen/Lutein [Centrum Silver Men Tablet] 1 each PO DAILY 01/23/22
[2022-02-01] MEDS: INSULIN GLARGINE 300 UNIT/3 ML PEN SUBQ SCH (20:32)
[2022-02-02] MEDS: IBUPROFEN 400 MG TABLET PO PRN (00:49)
[2022-02-02 06:10] LABS: BASOPHILS # (AUTO) 0.1 10^3/uL (0.0-0.1); BASOPHILS % (AUTO) 0.9 %; EOSINOPHILS # (AUTO) 0.2 10^3/uL (0.0-0.7); EOSINOPHILS % (AUTO) 2.2 %; HCT - HEMATOCRIT 31.2 % (42.0-52.0); HGB - HEMOGLOBIN 10.3 g/dL (14.0-18.0); LYMPHOCYTES # (AUTO) 1.4 10^3/uL (1.5-3.5); LYMPHOCYTES % (AUTO) 17.2 %; MEAN CORPUSCULAR HEMOGLOBIN 29.6 pg (27.0-31.0); MEAN CORPUSCULAR VOLUME 89.7 fL (80.0-94.0); MEAN PLATELET VOLUME 9.7 fL (7.4-11.4); MONOCYTES # (AUTO) 1.1 10^3/uL (0.0-1.0); MONOCYTES % (AUTO) 13.7 %; NEUTROPHILS # (AUTO) 5.4 10^3/uL (1.5-6.6); NEUTROPHILS % (AUTO) 65.8 %; PLT - PLATELET COUNT 405 10^3/uL (130-450); RED BLOOD COUNT 3.48 10^6/uL (4.70-6.10); RED CELL DISTRIBUTION WIDTH 12.9 % (12.0-15.0); WHITE BLOOD COUNT 8.2 x10^3/uL (4.8-10.8)
[2022-02-02] MEDS: PANTOPRAZOLE 40 MG TABLET PO SCH (06:30)
[2022-02-02] MEDS: VANCOMYCIN INJ 1 GM, VANCOMYCIN INJ 500 MG in SODIUM CHLORIDE 0.9% 500 ML IV SCH (06:30)
[2022-02-02 06:32] LABS: BUN - BLOOD UREA NITROGEN 13 mg/dL (6-20); CALCIUM 8.9 mg/dL (8.5-10.3); CARBON DIOXIDE - CO2 26 mmol/L (21-32); CHLORIDE 105 mmol/L (101-111); CREATININE 0.7 mg/dL (0.6-1.2); GFR - MDRD 113 (>89); GLUCOSE 108 mg/dL (70-100); POTASSIUM 3.8 mmol/L (3.5-5.0); SODIUM 139 mmol/L (135-145)
[2022-02-02 06:35] LABS: CRP - C-REACTIVE PROTEIN < 1.0 mg/dL (0-1.0)
[2022-02-02 07:54] VITALS: BP 120/55
[2022-02-02] MEDS: INSULIN ASPART 300 UNIT/3 ML PEN SUBQ SCH ×2 (08:02→11:38)
--- NOTE | 2022-02-02 08:57 | Discharge Plan ---
Discharge Plan Problem Reviewed?: Yes Disposition: Home, Self Care Condition: Stable Prescriptions: HYDROcodone/ACET 10/325 [[place] 10 mg/325 mg] 1 tab PO Q6HR PRN #10 tablet PRN Reason: Pain 8 to 10 cefUROXime axetiL [Ceftin] 500 mg PO Q12H 5 Days #20 tablet Saccharomyces Boulardii [Florastor] 250 mg PO BIDWM #10 cap Diet: Diabetic Activity Restrictions: Activity as Tolerated Shower Restrictions: No (fall precaution) Instruction Topics: Cellulitis Ch, Cefuroxime tablets Health Concerns: cellulitis Plan of Treatment: Cellulitis on your left lower extremity is significantly improved. You are prescribed 5 days antibiotics to finish the treatment course. You may resume your home medications as your schedule. Care Goals: Stabilization and resolved/improvement of your medical issues Assessment: Discussed the care plan with you, answered your questions, you understood and agreed Additional Instructions or Follow Up instructions: You may follow-up with your PCP in 1 week. should your symptoms return or worse, you may present to the ER or call 911 for help No Smoking: If you smoke, Please STOP! Call for help. Follow-up with: Artis Hernandez MD [Primary Care Provider] -
--- NOTE | 2022-02-02 09:03 | DISCHARGE SUMMARY ---
Discharge Summary Admit Date: 01/22/22 Discharge Date: 02/02/22 Discharging Provider: Jaron Alcantar Primary Care Provider: Artis Gleason Condition at Discharge: Stable Discharge Disposition: 01 Home, Self Care Discharge Facility Name: home - DIAGNOSES Discharge Diagnoses with Status of Each Condition: (1) Cellulitis of left lower leg no swelling, and erythema is nearly resolved. Patient had normal WBC, CRP is in the normal range. patient has no fever, blood cultures negative for bacteremia. Patient had PT and OT evaluation, patient can walk with pain controlled. Patient also had orthopedic surgeon evaluation. Patient is prescribed antibiotics for 5 days To finish the treatment course. (2) Diabetes mellitus A1C is 7.5. Resume home meds. - HPI History of Present Illness: refer from Dr. Vee Thomas's HPI on 01/22/22 This is a 66-year-old white male with a history of hypertension and diabetes. He developed pain, and a raised red area of his left mccollum, which he thought was from a bug bite, and he came to the ER with this complaint 2 days ago. 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 He was sent home on Keflex. The area has gotten more painful, red and more swollen and the involved area spread and he therefore presented to the ED again today. He was found to have an elevated white blood count of 14, elevated ESR of 52 and has presumed cellulitis. Blood cultures were drawn and then he received IV vancomycin and IV Unasyn in the ED. He underwent ultrasound that was negative for DVT and had an x-ray that showed no foreign body or fractures. He then underwent CT with contrast of the LLE, that showed no evidence of necrotizing fasciitis. He is being hospitalized for cellulitis that has failed outpatient therapy. - ALLERGIES Allergies/Adverse Reactions: Allergies Allergy/AdvReac Type Severity Reaction Status Date / Time No Known Drug Allergies Allergy Verified 01/22/22 13:25 - MEDICATIONS Home Medications: Ambulatory Orders Medication Instructions Recorded Confirmed Metformin HCl 500 mg PO DAILY 05/10/14 01/23/22 Atorvastatin [Lipitor] 20 mg PO DAILY 08/05/21 01/23/22 Insulin Glargine [Lantus Solostar] 34 units SUBQ QPM 08/05/21 01/23/22 Lisinopril [Zestril] 2.5 mg PO DAILY 01/23/22 01/23/22 Multivit-Min/FA/Lycopen/Lutein 1 each PO DAILY 01/23/22 01/23/22 [Centrum Silver Men Tablet] HYDROcodone/ACET 10/325 [[place] 10 1 tab PO Q6HR PRN #10 tablet 02/02/22 mg/325 mg] Saccharomyces Boulardii [Florastor] 250 mg PO BIDWM #10 cap 02/02/22 cefUROXime axetiL [Ceftin] 500 mg PO Q12H 5 Days #20 tablet 02/02/22 - PHYSICAL EXAM AT DISCHARGE General Appearance: positive: No acute distress, Alert. negative: Lethargic Eyes Bilateral: positive: Normal inspection, PERRL, No lid inflammation ENT: positive: ENT inspection nml, No signs of dehydration. negative: Purulent nasal drainage Neck: positive: Nml inspection, Trachea midline. negative: Tracheal deviation Respiratory: positive: Chest non-tender, No respiratory distress, Breath sounds nml. negative: Wheezes Cardiovascular: positive: Regular rate & rhythm, No murmur. negative: Tachycardia, Bradycardia, Systolic murmur Peripheral Pulses: positive: 2+ Abdomen: positive: Non-tender, Nml bowel sounds, No distention. negative: Tenderness Back: positive: Nml inspection Skin: positive: Color nml, Warm, Dry. negative: Cyanosis Extremities: positive: Non-tender, Full ROM, Other (There is no swelling at the lower extremity, with mild erythema at lateral below of left knee.) Neurologic/Psychiatric: positive: Oriented x3, Motor nml, Sensation nml, Mood/affect nml. negative: Weakness, Sensory loss, Facial droop, Slurred/abnml speech, Depressed mood/affect - LABS Result Diagrams: 02/02/22 05:18 02/02/22 05:18 - FOLLOW UP Follow Up: Cellulitis on your left lower extremity is significantly improved. You are prescribed 5 days antibiotics to finish the treatment course. You may resume your home medications as your schedule. You may follow-up with your PCP in 1 week. should your symptoms return or worse, you may present to the ER or call 911 for help - TIME SPENT Time Spent in Discharge (Minutes): 30
[2022-02-02] MEDS: lisinopriL 5 MG TABLET PO SCH (09:04)
[2022-02-02] MEDS: SACCHAROMYCES BOULARDII 250 MG CAPSULE PO SCH (09:04)
[2022-02-02] MEDS: CEFEPIME 2 GM in SODIUM CHLORIDE 0.9% MINIBAG 100 ML IV SCH (09:04)
[2022-02-02] MEDS: ATORVASTATIN 10 MG TABLET PO SCH (09:04)
[2022-02-02] MEDS: HYDROcod/ACETAM 10 MG/325 MG TABLET PO PRN ×2 (09:04→12:02)
[2022-02-02] MEDS: SODIUM CHLORIDE FLUSH 0.9% 10 ML SYRINGE IVP SCH (09:05)
[2022-02-02] MEDS: ENOXAPARIN 40 MG/0.4 ML SYRINGE SUBQ SCH (09:05)
[2022-02-02] MEDS: polyethylene glycoL 3350 17 GM PACKET PO SCH (09:05)
== END 2022-02-02 12:43 | disposition home or self-care (01) | DRG 603 ==
LOC: ED 13:19 → MS2 20:24 → OBSVTOIN 01-23 07:34
PROVIDERS: ADMIT Internal Medicine; ATTEND Nurse Practitioner Gerontology
DX: L03.116 Cellulitis of left lower limb (principal); I10 Essential (primary) hypertension; M25.462 Effusion, left knee; E11.9 Type 2 diabetes mellitus without complications; E78.00 Pure hypercholesterolemia, unspecified; D50.9 Iron deficiency anemia, unspecified; D72.829 Elevated white blood cell count, unspecified; F17.290 Nicotine dependence, other tobacco product, uncomplicated; Z20.822 Contact with and (suspected) exposure to COVID-19; R79.89 Other specified abnormal findings of blood chemistry; Z79.4 Long term (current) use of insulin; Z79.84 Long term (current) use of oral hypoglycemic drugs; Z79.899 Other long term (current) drug therapy
CPT/HCPCS: 36415; 73560; 73564; 73590; 73701; 80048; 80053; 80202; 82607; 82728; 83036; 83540; 83605; 83615; 84466; 85025; 85045; 85651; 86140; 87040; 87631; 93971; 96365; 96366; 96367; 96368; 97161; 99284; 99285; A9270; J1650; J1815; J3370; Q9967; 0202U

== ENCOUNTER 2022-02-20 11:21 | Outpatient (CLI) | payer MEDICARE, OTHER ==
[2022-02-20 18:27] LABS: BASOPHILS # (AUTO) 0.1 10^3/uL (0.0-0.1); BASOPHILS % (AUTO) 0.9 %; EOSINOPHILS # (AUTO) 0.2 10^3/uL (0.0-0.7); EOSINOPHILS % (AUTO) 3.5 %; HCT - HEMATOCRIT 36.3 % (42.0-52.0); HGB - HEMOGLOBIN 11.7 g/dL (14.0-18.0); LYMPHOCYTES # (AUTO) 1.7 10^3/uL (1.5-3.5); LYMPHOCYTES % (AUTO) 24.4 %; MEAN CORPUSCULAR HEMOGLOBIN 29.9 pg (27.0-31.0); MEAN CORPUSCULAR HGB CONC 32.2 g/dL (32.0-36.0); MEAN CORPUSCULAR VOLUME 92.8 fL (80.0-94.0); MONOCYTES # (AUTO) 0.9 10^3/uL (0.0-1.0); NEUTROPHILS % (AUTO) 57.9 %; PLT - PLATELET COUNT 248 10^3/uL (130-450); RED BLOOD COUNT 3.91 10^6/uL (4.70-6.10); RED CELL DISTRIBUTION WIDTH 13.7 % (12.0-15.0); WHITE BLOOD COUNT 6.9 x10^3/uL (4.8-10.8)
[2022-02-20 18:57] LABS: ALBUMIN 3.5 g/dL (3.2-5.5); ALBUMIN/GLOBULIN RATIO 0.8 (1.0-2.2); BILIRUBIN,TOTAL 0.4 mg/dL (0.2-1.0); CALCIUM 9.1 mg/dL (8.5-10.3); CREATININE 0.6 mg/dL (0.6-1.2); POTASSIUM 4.6 mmol/L (3.5-5.0); TOTAL PROTEIN 7.7 g/dL (6.7-8.2)
== END 2022-02-20 11:22 | disposition home or self-care (01) ==
LOC: LAB.N 11:21
PROVIDERS: ATTEND Nurse Practitioner
DX: L03.116 Cellulitis of left lower limb (principal)
CPT/HCPCS: 36415; 80053; 85025

== ENCOUNTER 2023-02-22 09:41 | Outpatient (CLI) | payer MEDICARE, OTHER ==
[2023-02-22 11:58] LABS: BASOPHILS % (AUTO) 0.6 %; EOSINOPHILS # (AUTO) 0.1 10^3/uL (0.0-0.7); EOSINOPHILS % (AUTO) 2.1 %; HGB - HEMOGLOBIN 13.7 g/dL (14.0-18.0); LYMPHOCYTES # (AUTO) 1.5 10^3/uL (1.5-3.5); LYMPHOCYTES % (AUTO) 23.7 %; MEAN CORPUSCULAR HEMOGLOBIN 30.2 pg (27.0-31.0); MEAN CORPUSCULAR HGB CONC 33.4 g/dL (32.0-36.0); MEAN CORPUSCULAR VOLUME 90.5 fL (80.0-94.0); MEAN PLATELET VOLUME 10.8 fL (7.4-11.4); MONOCYTES # (AUTO) 0.8 10^3/uL (0.0-1.0); MONOCYTES % (AUTO) 12.8 %; NEUTROPHILS # (AUTO) 3.7 10^3/uL (1.5-6.6); NEUTROPHILS % (AUTO) 60.5 %; PLT - PLATELET COUNT 243 10^3/uL (130-450); RED BLOOD COUNT 4.53 10^6/uL (4.70-6.10); RED CELL DISTRIBUTION WIDTH 12.7 % (12.0-15.0); WHITE BLOOD COUNT 6.2 x10^3/uL (4.8-10.8)
[2023-02-22 12:02] LABS: ALBUMIN 4.2 g/dL (3.2-5.5); ALBUMIN/GLOBULIN RATIO 1.3 (1.0-2.2); ALKALINE PHOSPHATASE 71 IU/L (42-121); ALT ALANINE AMINOTRANSFERASE 19 IU/L (10-60); AST ASPARTATE AMINOTRANSFERASE 28 IU/L (10-42); BILIRUBIN,TOTAL 0.5 mg/dL (0.2-1.0); BUN - BLOOD UREA NITROGEN 16 mg/dL (6-20); CALCIUM 9.3 mg/dL (8.5-10.3); CARBON DIOXIDE - CO2 28 mmol/L (21-32); CHLORIDE 104 mmol/L (101-111); CHOL/HDL RATIO 2.7 (<5.0); CHOLESTEROL 136 mg/dL; CREATININE 0.8 mg/dL (0.6-1.2); GFR - MDRD 96 (>89); GLUCOSE 136 mg/dL (70-100); HDL CHOLESTEROL 50 mg/dL; POTASSIUM 4.4 mmol/L (3.5-5.0); SODIUM 138 mmol/L (135-145); TOTAL PROTEIN 7.5 g/dL (6.7-8.2); TRIGLYCERIDES 31 mg/dL
[2023-02-22 12:04] LABS: ESTIMATED AVERAGE GLUCOSE 180 mg/dL (70-100); HEMOGLOBIN A1c% 7.9 % (4.27-6.07)
[2023-02-22 12:29] LABS: THYROID STIMULATING HORMONE 1.05 uIU/mL (0.34-5.60)
[2023-02-23 12:02] LABS: CREATININE,URINE 117.9 mg/dL; MICROALBUM/CREATININE RATIO,UR 40.7 ug/mg (<30.0); MICROALBUMIN,URINE 4.8 mg/dL (0-300.0)
== END 2023-02-22 09:42 | disposition home or self-care (01) ==
LOC: LAB.N 09:41
PROVIDERS: ATTEND Family Medicine
DX: E11.9 Type 2 diabetes mellitus without complications (principal); Z12.5 Encounter for screening for malignant neoplasm of prostate
CPT/HCPCS: 36415; 80053; 80061; 83036; 84443; 85025; G0103; 82043; 82570; 83721; 84153

== ENCOUNTER 2024-01-07 10:18 | Outpatient (CLI) | payer MEDICARE, OTHER ==
[2024-01-07 10:43] LABS: BASOPHILS % (AUTO) 0.5 %; EOSINOPHILS # (AUTO) 0.2 10^3/uL (0.0-0.7); EOSINOPHILS % (AUTO) 2.5 %; HCT - HEMATOCRIT 40.4 % (42.0-52.0); HGB - HEMOGLOBIN 13.3 g/dL (14.0-18.0); LYMPHOCYTES # (AUTO) 1.6 10^3/uL (1.5-3.5); LYMPHOCYTES % (AUTO) 27.1 %; MEAN CORPUSCULAR HEMOGLOBIN 30.4 pg (27.0-31.0); MEAN CORPUSCULAR HGB CONC 32.9 g/dL (32.0-36.0); MEAN CORPUSCULAR VOLUME 92.2 fL (80.0-94.0); MEAN PLATELET VOLUME 9.9 fL (7.4-11.4); MONOCYTES # (AUTO) 0.7 10^3/uL (0.0-1.0); MONOCYTES % (AUTO) 10.9 %; NEUTROPHILS # (AUTO) 3.6 10^3/uL (1.5-6.6); NEUTROPHILS % (AUTO) 58.7 %; PLT - PLATELET COUNT 206 10^3/uL (130-450); RED BLOOD COUNT 4.38 10^6/uL (4.70-6.10); RED CELL DISTRIBUTION WIDTH 12.4 % (12.0-15.0); WHITE BLOOD COUNT 6.1 x10^3/uL (4.8-10.8)
[2024-01-07 10:58] LABS: ALBUMIN 4.1 g/dL (3.2-5.5); ALBUMIN/GLOBULIN RATIO 1.5 (1.0-2.2); ALKALINE PHOSPHATASE 69 IU/L (42-121); ALT ALANINE AMINOTRANSFERASE 11 IU/L (10-60); AST ASPARTATE AMINOTRANSFERASE 17 IU/L (10-42); BILIRUBIN,TOTAL 0.5 mg/dL (0.2-1.0); BUN - BLOOD UREA NITROGEN 14 mg/dL (6-20); CALCIUM 9.3 mg/dL (8.5-10.3); CARBON DIOXIDE - CO2 29 mmol/L (21-32); CHLORIDE 107 mmol/L (101-111); CHOLESTEROL 150 mg/dL; CREATININE 0.8 mg/dL (0.6-1.3); GFR - MDRD 96 (>89); GLUCOSE 109 mg/dL (74-104); HDL CHOLESTEROL 50 mg/dL; LDL CHOLESTEROL,CALCULATED 84 mg/dL; LDL/HDL RATIO 1.7 (<3.6); POTASSIUM 4.2 mmol/L (3.5-4.5); SODIUM 140 mmol/L (135-145); TOTAL PROTEIN 6.8 g/dL (6.4-8.9); TRIGLYCERIDES 78 mg/dL (48-352); VLDL CHOLESTEROL 16 mg/dL
[2024-01-07 11:12] LABS: THYROID STIMULATING HORMONE 1.32 uIU/mL (0.34-5.60)
[2024-01-07 11:36] LABS: ESTIMATED AVERAGE GLUCOSE 180 mg/dL (70-100); HEMOGLOBIN A1c% 7.9 % (4.27-6.07)
== END 2024-01-07 10:19 | disposition home or self-care (01) ==
LOC: LAB 10:18
PROVIDERS: ATTEND Family Medicine
DX: E11.65 Type 2 diabetes mellitus with hyperglycemia (principal); E66.9 Obesity, unspecified; E78.5 Hyperlipidemia, unspecified; G47.33 Obstructive sleep apnea (adult) (pediatric); Z12.5 Encounter for screening for malignant neoplasm of prostate; D12.5 Benign neoplasm of sigmoid colon
CPT/HCPCS: 36415; 80053; 80061; 83036; 84443; 85025; G0103; 82043; 82570; 83721; 84153

== ENCOUNTER 2024-01-09 07:15 | Outpatient (CLI) | payer MEDICARE, OTHER ==
[2024-01-09 07:53] LABS: CREATININE,URINE 135.3 mg/dL; MICROALBUM/CREATININE RATIO,UR 142.6 ug/mg (<30.0); MICROALBUMIN,URINE 19.3 mg/dL
== END 2024-01-09 07:16 | disposition home or self-care (01) ==
LOC: LAB.R 07:15
PROVIDERS: ATTEND Family Medicine
DX: E11.65 Type 2 diabetes mellitus with hyperglycemia (principal); Z12.5 Encounter for screening for malignant neoplasm of prostate; E66.9 Obesity, unspecified; D12.6 Benign neoplasm of colon, unspecified; E78.5 Hyperlipidemia, unspecified; G47.33 Obstructive sleep apnea (adult) (pediatric)
CPT/HCPCS: 82043; 82570

== ENCOUNTER 2024-08-01 12:59 | Outpatient (CLI) | payer MEDICARE, OTHER ==
[2024-08-01 17:58] LABS: BASOPHILS % (AUTO) 0.5 %; EOSINOPHILS # (AUTO) 0.1 10^3/uL (0.0-0.7); HCT - HEMATOCRIT 39.7 % (42.0-52.0); HGB - HEMOGLOBIN 12.9 g/dL (14.0-18.0); LYMPHOCYTES # (AUTO) 1.5 10^3/uL (1.5-3.5); LYMPHOCYTES % (AUTO) 19.8 %; MEAN CORPUSCULAR HEMOGLOBIN 30.4 pg (27.0-31.0); MEAN CORPUSCULAR HGB CONC 32.5 g/dL (32.0-36.0); MEAN CORPUSCULAR VOLUME 93.6 fL (80.0-94.0); MONOCYTES # (AUTO) 0.8 10^3/uL (0.0-1.0); MONOCYTES % (AUTO) 10.3 %; NEUTROPHILS # (AUTO) 5.3 10^3/uL (1.5-6.6); NEUTROPHILS % (AUTO) 68.3 %; PLT - PLATELET COUNT 212 10^3/uL (130-450); RED BLOOD COUNT 4.24 10^6/uL (4.70-6.10); RED CELL DISTRIBUTION WIDTH 13.2 % (12.0-15.0); WHITE BLOOD COUNT 7.8 x10^3/uL (4.8-10.8)
[2024-08-01 18:22] LABS: CREATININE,URINE 91.8 mg/dL; MICROALBUM/CREATININE RATIO,UR 99.1 ug/mg (<30.0); MICROALBUMIN,URINE 9.1 mg/dL
[2024-08-01 18:25] LABS: ALBUMIN 4.2 g/dL (3.2-5.5); ALBUMIN/GLOBULIN RATIO 1.5 (1.0-2.2); ALKALINE PHOSPHATASE 57 IU/L (42-121); ALT ALANINE AMINOTRANSFERASE 11 IU/L (10-60); AST ASPARTATE AMINOTRANSFERASE 20 IU/L (10-42); BILIRUBIN,TOTAL 0.6 mg/dL (0.2-1.0); BUN - BLOOD UREA NITROGEN 17 mg/dL (6-20); CALCIUM 9.2 mg/dL (8.5-10.3); CARBON DIOXIDE - CO2 28 mmol/L (21-32); CHLORIDE 107 mmol/L (101-111); CHOL/HDL RATIO 2.6 (<5.0); CHOLESTEROL 147 mg/dL; CREATININE 0.9 mg/dL (0.6-1.3); GFR - MDRD 84 (>89); GLUCOSE 100 mg/dL (74-104); HDL CHOLESTEROL 56 mg/dL; LDL CHOLESTEROL,CALCULATED 81 mg/dL; LDL/HDL RATIO 1.4 (<3.6); POTASSIUM 4.4 mmol/L (3.5-4.5); SODIUM 140 mmol/L (135-145); TRIGLYCERIDES 50 mg/dL; VLDL CHOLESTEROL 10 mg/dL
[2024-08-01 21:06] LABS: ESTIMATED AVERAGE GLUCOSE 131 mg/dL (70-100); HEMOGLOBIN A1c% 6.2 % (4.27-6.07)
== END 2024-08-01 13:00 | disposition home or self-care (01) ==
LOC: LAB.N 12:59
PROVIDERS: ATTEND Physician Assistant
DX: E11.65 Type 2 diabetes mellitus with hyperglycemia (principal); E78.5 Hyperlipidemia, unspecified
CPT/HCPCS: 36415; 80053; 80061; 82043; 82570; 83036; 83721; 84443; 85025